=== PATIENT | female | born 1940 | race Caucasian/White ===

== ENCOUNTER → 2016-09-10 | Outpatient (REF) | payer MEDICARE ==
[2016-09-10 13:20] LABS: FOLATE > 24.0 NG/ML; VITAMIN B12 LEVEL 1765 PG/ML
== END ==
LOC: M LAB REF 12:29
PROVIDERS: ATTEND Internal Medicine
DX: D64.9 Anemia, unspecified (principal)

== ENCOUNTER → 2016-10-07 | Outpatient (REF) | payer MEDICARE ==
[2016-10-10 00:06] LABS: Lyme Disease IgG/IgM Antibodie <0.91 ISR (0.00-0.90); Lyme Disease IgM Ab Quantitati <0.80 index (0.00-0.79)
== END ==
LOC: M LAB REF 16:26
PROVIDERS: ATTEND Internal Medicine
DX: Z11.9 Encounter for screening for infectious and parasitic diseases, unspecified (principal)

== ENCOUNTER → 2018-10-11 | Outpatient (REF) | payer MEDICARE | LOC: M LAB REF 14:40 | PROVIDERS: ATTEND Internal Medicine | DX: M05.79 Rheumatoid arthritis with rheumatoid factor of multiple sites without organ or systems involvement (principal) ==

== ENCOUNTER → 2019-02-21 | Outpatient (REF) | payer MEDICARE ==
[2019-02-21 17:41] LABS: C REACTIVE PROTEIN QUANTITATIV < 0.30 MG/DL (0.00-0.30)
[2019-02-21 17:54] LABS: FOLATE > 24.0 NG/ML; VITAMIN B12 LEVEL 1527 PG/ML
== END ==
LOC: M LAB REF 17:02
PROVIDERS: ATTEND Internal Medicine
DX: I10 Essential (primary) hypertension (principal); M05.79 Rheumatoid arthritis with rheumatoid factor of multiple sites without organ or systems involvement; R20.2 Paresthesia of skin

== ENCOUNTER → 2019-02-21 | Outpatient (CLI) | payer MEDICARE ==
--- NOTE | 2019-02-21 18:30 | REP ---
Five views right ribs and two views chest: 02/21/2019. Indication: Right-sided chest pain. Comparison: 03/02/2006. Findings: Diffuse osteopenia is present. No acute rib fractures detected. There is no evidence of lung contusion. There is no pneumothorax. Minimal bibasilar plate-like atelectasis is noted. New new chronic-appearing new new thoracic new compression new vertebral body fractures are noted most notably at T8. Multilevel degenerative sequelae of the spine are additionally noted. The lungs are clear bilaterally. There is no evidence of pleural effusion or pneumothorax. Exaggerated kyphosis is present. Impression: No acute rib fracture detected. Electronically Signed by Arthur Corrigan DO 02/21/2019 06:21 P
== END ==
LOC: M WUC 17:35
PROVIDERS: ATTEND Internal Medicine
DX: J98.11 Atelectasis (principal); M85.88 Other specified disorders of bone density and structure, other site; R07.9 Chest pain, unspecified; I10 Essential (primary) hypertension; M05.79 Rheumatoid arthritis with rheumatoid factor of multiple sites without organ or systems involvement; R20.2 Paresthesia of skin

== ENCOUNTER → 2019-03-16 | Outpatient (CLI) | payer MEDICARE ==
[2019-03-16 20:18] LABS: ALBUMIN 3.5 GM/DL (3.2-5.2); BLOOD UREA NITROGEN 16 MG/DL (7-18); CALCIUM LEVEL 9.3 MG/DL (8.8-10.2); CARBON DIOXIDE LEVEL 29 MEQ/L (21-32); CHLORIDE LEVEL 105 MEQ/L (98-107); CREATININE FOR GFR 0.88 MG/DL (0.55-1.30); GLOMERULAR FILTRATION RATE > 60.0 (>39); GLUCOSE, FASTING 100 MG/DL (70-100); PHOSPHORUS LEVEL 3.9 MG/DL (2.5-4.9); POTASSIUM SERUM 4.7 MEQ/L (3.5-5.1); SODIUM LEVEL 140 MEQ/L (136-145)
== END ==
LOC: M WUC 17:29
PROVIDERS: ATTEND Physician Assistant
DX: R22.43 Localized swelling, mass and lump, lower limb, bilateral (principal)

== ENCOUNTER → 2019-05-08 | Outpatient (CLI) | payer MEDICARE ==
--- NOTE | 2019-05-08 15:16 | REP ---
Left knee series: Four views. History: Contusion. Findings: Four views of the left knee show diffuse osteopenia. There is three compartment osteoarthritis with joint space narrowing, sclerosis and spur formation. This is most pronounced in the medial compartment. There is no evidence of fracture, subluxation, or joint effusion. Mild vascular calcification is noted. Impression: Three compartment osteoarthritis. No traumatic abnormality noted. The sunrise view could not be obtained. Electronically Signed by Jeferson Johnston MD 05/08/2019 06:21 P
--- NOTE | 2019-05-08 15:19 | REP ---
Left foot series: Four views. History: Contusion. Findings: There is diffuse osteoporosis. Dystrophic calcifications are seen in the soft tissues of the distal calf and foot. There is diffuse calf soft tissue swelling. No foot or distal calf fracture is seen. Impression: Osteoporosis. Dystrophic calcification and diffuse swelling. No fracture is visible. Electronically Signed by Jeferson Johnston MD 05/08/2019 06:21 P
--- NOTE | 2019-05-08 15:19 | REP ---
Left hip: Two views. History: Contusion. Findings: AP and frog-leg views of the left hip demonstrate diffuse osteopenia. No evidence of fracture or subluxation is seen. Left hemipelvis appears intact. Impression: No fracture seen. Electronically Signed by Jeferson Johnston MD 05/08/2019 06:21 P
--- NOTE | 2019-05-08 15:31 | REP ---
Left ankle: Four views. History: Contusion. Findings: There is diffuse soft tissue swelling. Dystrophic calcifications are seen in the soft tissues of the distal calf consistent with venous insufficiency calcifications. There is also arterial vascular calcification. There is a cortical break in the posterior and lateral cortex of the calcaneus on oblique radiograph. A calcaneal fracture cannot be excluded. Cortical irregularity is seen posteriorly on the lateral radiograph as well. This should be correlated with mechanism of injury. This finding is not apparent on the left foot radiographs. An erosion of the posterior calcaneus could have this appearance as well. No other evidence of fracture is seen. Impression: Diffuse swelling. Soft tissue calcifications. Cortical irregularity possible fracture of the posterior calcaneus. Electronically Signed by Jeferson Johnston MD 05/08/2019 06:21 P
--- NOTE | 2019-05-08 15:32 | REP ---
Left rib series: Six views including PA chest. History: Contusion. Comparison chest x-ray February 21, 2019. Findings: AP chest x-ray demonstrates linear fibrosis in both lung bases similar to the prior study. The aorta is tortuous as before. There is no evidence of pneumothorax or hydrothorax. No infiltrate or contusion is seen in the lung viveros. Multiple views of the left rib cage demonstrate diffuse osteopenia. There appear to be old healed rib fractures on the left. No acute rib fracture is appreciated. Impression: No acute rib fracture is visible. Electronically Signed by Jeferson Johnston MD 05/08/2019 06:21 P
== END ==
LOC: M WUC 13:24
PROVIDERS: ATTEND Physician Assistant
DX: S20.212A Contusion of left front wall of thorax, initial encounter (principal); S80.12XA Contusion of left lower leg, initial encounter; W18.30XA Fall on same level, unspecified, initial encounter; Y92.009 Unspecified place in unspecified non-institutional (private) residence as the place of occurrence of the external cause

== ENCOUNTER → 2019-05-30 | Outpatient (REF) | payer MEDICARE | LOC: M LAB REF 17:36 | PROVIDERS: ATTEND Internal Medicine | DX: R20.2 Paresthesia of skin (principal); M05.79 Rheumatoid arthritis with rheumatoid factor of multiple sites without organ or systems involvement ==

== ENCOUNTER → 2020-07-10 | Outpatient (REF) | payer MEDICARE | LOC: M LAB REF 12:01 | PROVIDERS: ATTEND Internal Medicine | DX: M05.79 Rheumatoid arthritis with rheumatoid factor of multiple sites without organ or systems involvement (principal) ==

== ENCOUNTER 2020-12-12 06:19 | Inpatient (IN) | payer MEDICARE ==
[~2020-12-12] VITALS: Ht 142.2 cm; Wt 70.6 kg
[2020-12-12] MEDS ORDERED: METF500T13 PO (06:31)
[2020-12-12] MEDS ORDERED: PRED5TA PO (06:31)
[2020-12-12] MEDS ORDERED: FURO20TA2 PO (06:31)
[2020-12-12] MEDS ORDERED: METH2.5T48 PO (06:31)
[2020-12-12] MEDS ORDERED: ATEN25TA PO (06:31)
[2020-12-12] MEDS ORDERED: PANT40TA29 PO (06:31)
[2020-12-12] MEDS ORDERED: ACETAMINOPHEN TAB 650MG DOSE (2X325MG) PO ONE (07:15)
[2020-12-12 07:47] LABS: BASO % 0.3 % (0.0-1.0); HEMATOCRIT 43.8 % (36.0-47.0); HEMOGLOBIN 14.5 g/dl (12.0-15.5); LYMPH # 1.1 10^3/uL (1.5-5.0); LYMPH % 7.2 % (24.0-44.0); MEAN CORPUSCULAR HEMOGLOBIN 34.2 pg (27.0-33.0); MEAN CORPUSCULAR HGB CONC 33.1 g/dl (32.0-36.5); MEAN CORPUSCULAR VOLUME 103.3 fl (80.0-96.0); MONO # 1.5 10^3/uL (0.0-0.8); MONO % 9.3 % (2.0-8.0); NEUTROPHILS # 12.9 10^3/uL (1.5-8.5); NEUTROPHILS % 82.4 % (36.0-66.0); PLATELET COUNT, AUTOMATED 203 10^3/uL (150-450); RED BLOOD COUNT 4.24 10^6/uL (4.00-5.40)
[2020-12-12 07:48] LABS: ABG BASE EXCESS -0.2 (-2.0-2.0); ABG HCO3 22.8 MEQ/L (22.0-26.0); ABG O2 SATURATION 95.3 % (95.0-99.0); ABG PARTIAL PRESSURE O2 78.6 mmHg (75.0-100.0); ABG STANDARD HCO3 24.2 MEQ/L (22.0-26.0); ABG TOTAL CO2 23.9 MEQ/L (23.0-31.0); ABG pH (ARTERIAL) 7.458 UNITS (7.350-7.450)
[2020-12-12 07:52] LABS: WHITE BLOOD COUNT 15.7 10^3/uL (4.0-10.0)
[2020-12-12 08:00] LABS: INR 1.02; PARTIAL THROMBOPLASTIN TIME 27.8 SECONDS (25.9-37.0); PROTHROMBIN TIME 13.8 SECONDS (12.7-14.5)
--- NOTE | 2020-12-12 08:00 | ECGEPIP ---
[facility] - ED Test Date: 2020-12-12 Pat Name: VINICIO LAYTON Department: Room: - Gender: Female [employer]iter: LR : 1940 Requested By: JAXON Justin Order Number: [id number] Reading MD: Narayan Weaver Measurements Intervals Hunter Rate: 97 P: 30 SC: 128 QRS: -40 QRSD: 80 T: 70 QT: 356 QTc: 452 Interpretive Statements Normal sinus rhythm Left axis deviation POOR R WAVE PROGRESSION BASELINE ARTIFACT AFFECTS INTERPRETATION Electronically Signed on 12-12-2020 8:00:04 EDT by Narayan Weaver
--- NOTE | 2020-12-12 08:06 | REP ---
INDICATION: DYSPNEA/COUGH. COMPARISON: PA and lateral chest dated 02/21/2019 and left rib series dated 05/08/2019. TECHNIQUE: Portable AP chest with the patient sitting. FINDINGS: There is an incomplete inspiratory effort with under under aeration of the lung bases. Lung viveros are otherwise clear. Cardiac size is normal. Lala and mediastinum are unremarkable. There is diffuse skeletal demineralization. IMPRESSION: Incomplete inspiratory effort with under aeration of the lung bases. <Electronically signed by Sergio Holcomb > 12/12/20 0802
[2020-12-12 08:19] LABS: ALBUMIN 3.5 GM/DL (3.2-5.2); ALT/SGPT 29 U/L (12-78); BILIRUBIN,DIRECT 0.3 MG/DL (0.0-0.2); BILIRUBIN,TOTAL 1.4 MG/DL (0.2-1.0); BLOOD UREA NITROGEN 14 MG/DL (7-18); CALCIUM LEVEL 8.7 MG/DL (8.8-10.2); CARBON DIOXIDE LEVEL 24 MEQ/L (21-32); CHLORIDE LEVEL 104 MEQ/L (98-107); CK-MB VALUE MASS < 1.0 NG/ML (<3.6); CPK CREATINE PHOSPHOKINASE 90 U/L (26-192); CREATININE FOR GFR 0.91 MG/DL (0.55-1.30); GLOMERULAR FILTRATION RATE > 60.0 (>39); GLUCOSE, FASTING 181 MG/DL (70-100); MB/CK RELATIVE INDEX 1.11 (< OR =4); NT-PRO BNP 377 PG/ML (<450); POTASSIUM SERUM 4.4 MEQ/L (3.5-5.1); SODIUM LEVEL 138 MEQ/L (136-145); TOTAL PROTEIN 7.6 GM/DL (6.4-8.2); TROPONIN I < 0.02 NG/ML (< 0.10)
[2020-12-12] MEDS ORDERED: COMBIVENT RESPIMAT 100-20MCG INHALER 4GM INH ONE (08:20)
[2020-12-12] MEDS ORDERED: ISOVUE-370 76% 100ML VIAL As Ordered ONE (08:50)
[2020-12-12] MEDS: HEPARIN SOD (PORCINE) 5000UNITS/ML 1ML VIAL/SYRINGE SC SCH ×2 (09:00→20:17)
--- NOTE | 2020-12-12 09:34 | REP ---
INDICATION: SOB. COMPARISON: None. TECHNIQUE: CTA chest FINDINGS: There is consolidation at both lung bases. This is more prominent at the right base. There are no pulmonary emboli. The ascending aorta, aortic arch and descending aorta are unremarkable. The great vessels show normal origins from the arch and are patent. There are multiple compression fractures of the thoracic spine and the thoracic spine is osteoporotic. The adrenal glands are not enlarged. A 1.5 cm cyst is noted in the upper pole the left kidney. Thyroid unremarkable. No hilar or mediastinal adenopathy. IMPRESSION: Bibasilar pneumonia right larger than left. No pulmonary emboli. <Electronically signed by Gunner Moran > 12/12/20 [id number]
[2020-12-12] MEDS ORDERED: LevoFLOXacin IV 750 MG in IV 1 EA IV ONE (09:50)
[2020-12-12] MEDS ORDERED: D31000TA2 PO (10:15)
[2020-12-12] MEDS ORDERED: GABA-1171 PO (10:15)
[2020-12-12] MEDS ORDERED: FERR1TAB8 PO (10:15)
[2020-12-12] MEDS ORDERED: CYAN500T3 PO (10:15)
[2020-12-12] MEDS ORDERED: POTA99TA14 PO (10:15)
[2020-12-12] MEDS ORDERED: HOME MED LIST COMPLETE! XX SCH (10:20)
[2020-12-12] MEDS ORDERED: IPRATROPIUM 0.5MG/ALBUTEROL 2.5MG INH SOL UD 3ML (DUONEB) INH PRN (11:05)
[2020-12-12] MEDS ORDERED: ALBUTEROL SULFATE 2.5 MG/0.5 ML INH NEB SOLN INH PRN (11:05)
[2020-12-12] MEDS ORDERED: GLUCAGON INJ 1MG VIAL SC PRN (11:35)
[2020-12-12] MEDS ORDERED: GLUCOSE 4GM CHEW TABLET PO PRN (11:35)
[2020-12-12] MEDS ORDERED: DEXTROSE 50% 50 ML SYRINGE IV PRN (11:35)
--- NOTE | 2020-12-12 11:44 | HPEPDOC ---
General Date of Admission Dec 12, 2020 at 11:05 Date of Service: Dec 12, 2020 Chief Complaint The patient is a 80-year-old female admitted with a reason for visit of Pneumonia. Source: Patient Exam Limitations: No limitations History of Present Illness Patient is 80 years old female with past medical history of rheumatoid arthritis, osteoporosis, type 2 diabetes presented to the hospital with increased shortness of breath. Patient stated that around 4 days ago she has been having increased shortness of breath with low-grade fever and chills. Also she stated that she developed severe back pain from the low thoracic and lumbar area, she denied such back pain before. In ER patient was found to have leukocytosis of 15.7, hemoglobin 14.5. Chest CTA showed Bibasilar pneumonia right larger than left. No pulmonary emboli Home Medications Scheduled Atenolol (Atenolol) 25 Mg Tablet, 25 MG PO DAILY, (Reported) Cholecalciferol (Vitamin D3) (Vitamin D3) 1,000 Unit Tablet, 1,000 UNITS PO DAILY, (Reported) Cyanocobalamin (Vitamin B-12) (Vitamin B-12) 500 Mcg Tablet, 500 MCG PO DAILY, (Reported) Ferrous Sulfate (Ferrous Sulfate) 325 Mg Tablet, 325 MG PO DAILY, (Reported) Furosemide (Furosemide) 20 Mg Tablet, 20 MG PO DAILY, (Reported) Gabapentin (Gabapentin) 100 Mg Capsule, 100 MG PO QHS, (Reported) Metformin HCl (Metformin HCl) 500 Mg Tablet, 500 MG PO BID, (Reported) Methotrexate Sodium (Methotrexate) 2.5 Mg Tablet, 12.5 MG PO QWEEK, (Reported) THURSDAYS Pantoprazole Sodium (Pantoprazole Sodium) 40 Mg Tablet.dr, 40 MG PO BID, (Reported) Potassium Gluconate (Potassium) 99 Mg Tablet, 595 MG PO DAILY, (Reported) Prednisone (Prednisone) 5 Mg Tablet, 10 MG PO DAILY, (Reported) Allergies Coded Allergies: Penicillins (Verified Allergy, Intermediate, rash, hives, eye problems, 12/12/20) Past Medical History Medical History Rheumatoid arthritis, osteoporosis, type 2 diabetes, acid reflux Surgical History No surgical history Family History I personally reviewed family history and found not pertinent Social History * Smoker: Denies Alcohol: Denies Drugs: denies A-FIB/CHADSVASC A-FIB History Current/History of A-Fib/PAF?: No Current PO Anticoag Therapy: No Review of Systems Constitutional: Reports: Chills, Fever Eyes: Denies: Pain ENT: Denies: Head Aches Skin: Denies: Rash, Lesions Pulmonary: Reports: Dyspnea Cardiovascular: Denies: Chest Pain Gastrointestinal: Denies: Nausea Genitourinary: Denies: Dysuria Hematologic: Denies: Bruising Endocrine: Denies: Polydipsia Musculoskeletal: Reports: Back Pain Neurological: Denies: Weakness Psych: Reports: Mood Normal Physical Examination General Exam: Positive: Alert, Cooperative ENT Exam: Positive: Atraumatic Neck Exam: Positive: Supple; Negative: JVD Chest Exam: Positive: Rhonchi, Diminished Heart Exam: Positive: Rate Normal Telemetry: Positive: No significant arrhythmia Abdomen Exam: Positive: Normal bowel sounds Extremity Exam: Negative: Cyanosis Skin Exam: Positive: Nl turgor and temperature Neuro Exam: Positive: Strength at 5/5 X4 ext, Cranial Nerves 3-12 NL Psych Exam: Positive: Mental status NL Vital Signs Vital Signs Date Time Temp Pulse Resp B/P (MAP) Pulse Ox O2 Delivery O2 Flow Rate FiO2 12/12/20 09:48 99.0 12/12/20 08:45 82 114/58 (76) 91 12/12/20 08:05 Nasal Cannula 3.0 12/12/20 06:20 20 Laboratory Data Labs 24H Laboratory Tests 2 12/12/20 07:24: Immature Granulocyte % (Auto) 0.8, Neutrophils (%) (Auto) 82.4H, Lymphocytes (%) (Auto) 7.2L, Monocytes (%) (Auto) 9.3H, Eosinophils (%) (Auto) 0.0, Basophils (%) (Auto) 0.3, Neutrophils # (Auto) 12.9H, Lymphocytes # (Auto) 1.1L, Monocytes # (Auto) 1.5H, Eosinophils # (Auto) 0.0, Basophils # (Auto) 0.0, Nucleated Red Blood Cells % (auto) 0.0, Prothrombin Time 13.8, Prothromb Time International Ratio 1.02, Activated Partial Thromboplast Time 27.8, Anion Gap 10, Glomerular Filtration Rate > 60.0, Calcium Level 8.7L, Total Bilirubin 1.4H, Direct Bilirubin 0.3H, Aspartate Amino Transf (AST/SGOT) 23, Alanine Aminotransferase (ALT/SGPT) 29, Alkaline Phosphatase 63, Total Creatine Kinase 90, Creatine Kinase MB < 1.0, Creatine Kinase MB Relative Index 1.11, Troponin I < 0.02, JC-[id number]-G-Type Natriuretic Peptide 377, Total Protein 7.6, Albumin 3.5, Albumin/Globulin Ratio 0.9L, Thyroid Stimulating Hormone (TSH) 2.700 12/12/20 07:37: Blood Gas Bicarbonate Standard 24.2, Arterial Blood pH 7.458H, Arterial Blood Partial Pressure CO2 33.0L, Arterial Blood Partial Pressure O2 78.6, Arterial Blood Total CO2 23.9, Arterial Blood HCO3 22.8, Arterial Blood Base Excess -0.2, Arterial Blood Oxygen Saturation 95.3 CBC/BMP Laboratory Tests 12/12/20 07:24 Microbiology Microbiology 12/12/20 Blood Culture, Received Pending 12/12/20 Respiratory Virus Panel (PCR) ([facility]) - Final, Complete 12/12/20 Blood Culture, Received Pending Assessment/Plan Patient is 80 years old female with past medical history of rheumatoid arthritis, osteoporosis, type 2 diabetes presented to the hospital with increased shortness of breath. Patient stated that around 4 days ago she has been having increased shortness of breath with low-grade fever and chills. Also she stated that she developed severe back pain from the low thoracic and lumbar area, she denied such back pain before. In ER patient was found to have leukocytosis of 15.7, hemoglobin 14.5. Chest CTA showed Bibasilar pneumonia right larger than left. No pulmonary emboli Problems (1) Community acquired pneumonia Status: Acute Problem Text: CT showed bilateral infiltrates, patient has leukocytosis with dyspnea Inhalers, prednisone 40 mg Blood culture Sputum culture IV fluid (2) Back pain Status: Acute Problem Text: Tenderness on palpation over the lower thoracic area and lumbar area There is suspicion for spinal abscess Patient immunocompromised due to rheumatoid arthritis and methotrexate therapy I will proceed with MRI thoracic and lumbar area (3) Rheumatoid arthritis Status: Chronic Problem Text: Methotrexate on hold (4) Diabetes mellitus Status: Chronic Problem Text: Diabetes diet Insulin sliding scale Plan / VTE VTE Prophylaxis Ordered?: Yes ALBERTO MONTIEL DO Dec 12, 2020 11:44
[2020-12-12] MEDS ORDERED: predniSONE 20 MG TAB PO ONE (12:00)
[2020-12-12] MEDS: PANTOPRAZOLE 40MG TAB (PROTONIX) PO SCH (12:31)
[2020-12-12] MEDS: FERROUS SULFATE 325MG TAB PO SCH (12:32)
[2020-12-12] MEDS: CYANOCOBALAMIN 500 MCG TAB PO SCH (12:32)
[2020-12-12] MEDS: FUROSEMIDE 20 MG TAB PO SCH (12:32)
[2020-12-12] MEDS: VITAMIN D 1,000 INTERNATIONAL UNITS TABLET PO SCH (12:32)
[2020-12-12 14:00] VITALS: BP 143/67
[2020-12-12] MEDS: HumaLOG INSULIN (NovoLOG) PER UNIT SC SCH ×3 (15:55→20:24)
[2020-12-12] MEDS: atenoloL 25 MG TAB PO SCH (16:05)
[2020-12-12] MEDS: NS 1,000 ML IV SCH (16:06)
[2020-12-12] MEDS: DOXYCYCLINE HYCLATE 100 MG in D5W MINI-BAG PLUS 100 ML IV SCH (20:17)
[2020-12-12] MEDS: GABAPENTIN 100 MG CAP PO SCH (20:17)
[2020-12-12 22:00] VITALS: BP 139/80
[2020-12-13] MEDS: NS 1,000 ML IV SCH ×2 (01:45→11:08)
[2020-12-13 05:51] LABS: HEMATOCRIT 38.3 % (36.0-47.0); MEAN CORPUSCULAR HEMOGLOBIN 33.8 pg (27.0-33.0); MEAN CORPUSCULAR HGB CONC 32.1 g/dl (32.0-36.5); MEAN CORPUSCULAR VOLUME 105.2 fl (80.0-96.0); PLATELET COUNT, AUTOMATED 184 10^3/uL (150-450); RED BLOOD COUNT 3.64 10^6/uL (4.00-5.40); WHITE BLOOD COUNT 12.9 10^3/uL (4.0-10.0)
[2020-12-13 05:55] LABS: HEMOGLOBIN 12.3 g/dl (12.0-15.5)
[2020-12-13 06:00] VITALS: BP 146/72
[2020-12-13 06:20] LABS: ALBUMIN 2.7 GM/DL (3.2-5.2); ALT/SGPT 20 U/L (12-78); BILIRUBIN,TOTAL 0.7 MG/DL (0.2-1.0); BLOOD UREA NITROGEN 13 MG/DL (7-18); CARBON DIOXIDE LEVEL 25 MEQ/L (21-32); CHLORIDE LEVEL 109 MEQ/L (98-107); CREATININE FOR GFR 0.83 MG/DL (0.55-1.30); GLOMERULAR FILTRATION RATE > 60.0 (>39); GLUCOSE, FASTING 111 MG/DL (70-100); MAGNESIUM LEVEL 2.3 MG/DL (1.8-2.4); POTASSIUM SERUM 3.7 MEQ/L (3.5-5.1); SODIUM LEVEL 142 MEQ/L (136-145); TOTAL PROTEIN 6.2 GM/DL (6.4-8.2)
[2020-12-13] MEDS: HumaLOG INSULIN (NovoLOG) PER UNIT SC SCH ×4 (07:30→20:56)
[2020-12-13] MEDS: ACETAMINOPHEN TAB 650MG DOSE (2X325MG) PO PRN (08:18)
[2020-12-13] MEDS: CYANOCOBALAMIN 500 MCG TAB PO SCH (10:22)
[2020-12-13] MEDS: VITAMIN D 1,000 INTERNATIONAL UNITS TABLET PO SCH (10:22)
[2020-12-13] MEDS: predniSONE 20 MG TAB PO SCH (10:22)
[2020-12-13] MEDS: cefTRIAXone SOD 2 GM in D5W MINI-BAG PLUS 50 ML IV SCH (10:22)
[2020-12-13] MEDS: FERROUS SULFATE 325MG TAB PO SCH (10:22)
[2020-12-13] MEDS: HEPARIN SOD (PORCINE) 5000UNITS/ML 1ML VIAL/SYRINGE SC SCH ×2 (10:23→21:10)
[2020-12-13] MEDS: PANTOPRAZOLE 40MG TAB (PROTONIX) PO SCH (10:23)
[2020-12-13] MEDS: FUROSEMIDE 20 MG TAB PO SCH (10:23)
[2020-12-13] MEDS: atenoloL 25 MG TAB PO SCH (10:26)
--- NOTE | 2020-12-13 10:29 | REPVR ---
PROCEDURE INFORMATION: Exam: MR Thoracic Spine Without and With Contrast Exam date and time: 12/13/2020 9:45 AM Age: 80 years old Clinical indication: Pain in thoracic spine; Without myelpathy or radiculopathy; Patient HX: Compression fxs. TECHNIQUE: Imaging protocol: Multiplanar magnetic resonance images of the thoracic spine without and with contrast. Contrast material: PROHANCE; Contrast volume: 14 ml; Contrast route: INTRAVENOUS (IV); COMPARISON: MRI-LS SPINE W/O FOLL WITH CON 12/13/2020 8:51 AM FINDINGS: Vertebrae: There are multiple chronic thoracic compression fractures resulting in moderate thoracic kyphosis. Spinal cord: See "Discs/Spinal canal/Neural foramina" finding. Discs/Spinal canal/Neural foramina: There are degenerative changes throughout the thoracic spine including disc space narrowing, disc desiccation, and disc bulging. There is no significant spinal canal stenosis. There is no cord compression. Soft tissues: Unremarkable. Pleural spaces: There are small bilateral pleural effusions. Kidneys and ureters: There are high signal lesions in the left kidney, possibly cysts, but not fully characterized on this MRI exam. IMPRESSION: 1. There are multiple chronic thoracic compression fractures resulting in moderate thoracic kyphosis. 2. There are degenerative changes throughout the thoracic spine including disc space narrowing, disc desiccation, and disc bulging. There is no significant spinal canal stenosis. There is no cord compression. PROCEDURE INFORMATION: Exam: MR Lumbar Spine Without Contrast Exam date and time: 12/13/2020 9:45 AM Clinical indication: Pain in thoracic spine; Without myelpathy or radiculopathy; Patient HX: Compression fxs; Additional info: Spinal abscess TECHNIQUE: Imaging protocol: Multiplanar magnetic resonance images of the lumbar spine without intravenous contrast. COMPARISON: No relevant prior studies available. FINDINGS: Vertebrae: There are multiple old compression fractures without retropulsion. There is multilevel disc desiccation and ventral ridging. There is mild multilevel neural foraminal narrowing. There is no significant spinal canal stenosis. There is multilevel facet arthropathy. There is no abnormal enhancement. IMPRESSION: 1. Multiple chronic lumbar compression fractures. 2. Multilevel degenerative changes without significant spinal canal stenosis. Multilevel neural foraminal narrowing. Electronically signed by: Nahum Denson On 12/13/2020 10:28:52 AM
--- NOTE | 2020-12-13 10:30 | REPVR ---
PROCEDURE INFORMATION: Exam: MR Lumbar Spine Without and With Contrast Exam date and time: 12/13/2020 9:45 AM Age: 80 years old Clinical indication: Low back pain; Additional info: Spinal abscess TECHNIQUE: Imaging protocol: Multiplanar magnetic resonance images of the lumbar spine without and with intravenous contrast. Contrast material: PROHANCE; Contrast volume: 14 ml; Contrast route: INTRAVENOUS (IV); COMPARISON: AR HIP COMPLETE LEFT 05/08/2019 2:10 PM FINDINGS: Vertebrae: There are multiple old compression fractures without retropulsion. There is multilevel disc desiccation and ventral ridging. There is mild multilevel neural foraminal narrowing. There is no significant spinal canal stenosis. There is multilevel facet arthropathy. There is no abnormal enhancement. IMPRESSION: 1. Multiple chronic lumbar compression fractures. 2. Multilevel degenerative changes without significant spinal canal stenosis. Multilevel neural foraminal narrowing. Electronically signed by: Nahum Denson On 12/13/2020 10:30:00 AM
[2020-12-13] MEDS ORDERED: PERCOCET 5MG/325MG TAB PO PRN (10:45)
[2020-12-13] MEDS: DOXYCYCLINE HYCLATE 100 MG in D5W MINI-BAG PLUS 100 ML IV SCH ×2 (11:07→21:10)
[2020-12-13 14:00] VITALS: BP 122/65
[2020-12-13] MEDS ORDERED: traMADol 50 MG TAB PO PRN (15:20)
[2020-12-13] MEDS ORDERED: ONDANSETRON 4MG/2ML VIAL IV PRN (15:25)
--- NOTE | 2020-12-13 15:25 | IPNPDOC ---
Text Note Date of Service The patient was seen on 12/13/20. NOTE Subjective: Patient continues to complain back pain. She stated that she feels nauseated after the dose of Percocet. Objective: GENERAL APPEARANCE: NAD HEENT: no scleral icterus, no JVD, EOMI CARDIOVASCULAR: S1S2 LUNGS: Diminished lung sounds bilaterally ABDOMEN: soft & not tender w palpation MUSCULOSKELETAL: no cyanosis, no swelling, tenderness over lumbar and thoracic spine INTEGUMENT: no generalized pallor NEUROLOGICAL: cranial nerve function from 2-12 intact, follows commands, speech not dysarthric Assessment/Plan Patient is 80 years old female with past medical history of rheumatoid arthritis, osteoporosis, type 2 diabetes presented to the hospital with increased shortness of breath. Patient stated that around 4 days ago she has been having increased shortness of breath with low-grade fever and chills. Also she stated that she developed severe back pain from the low thoracic and lumbar area, she denied such back pain before. In ER patient was found to have leukocytosis of 15.7, hemoglobin 14.5. Chest CTA showed Bibasilar pneumonia right larger than left. No pulmonary emboli Problems (1) Community acquired pneumonia CT showed bilateral infiltrates, patient has leukocytosis with dyspnea Inhalers, prednisone 40 mg Blood culture negative Await sputum culture IV fluid Procalcitonin negative Continue antibiotic treatment (2) Back pain/osteoporosis Tenderness on palpation over the lower thoracic area and lumbar area MRI negative for spinal abscess, showed multiple compression fractures Continue vitamin D, I started alendronate Pain management (3) Rheumatoid arthritis Methotrexate on hold (4) Diabetes mellitus Diabetes diet Insulin sliding scale Nausea Zofran VS,Fishbone, I+O VS, Fishbone, I+O Laboratory Tests 12/13/20 05:14 Vital Signs Date Time Temp Pulse Resp B/P (MAP) Pulse Ox O2 Delivery O2 Flow Rate FiO2 12/13/20 14:00 97.3 52 16 122/65 (84) 92 Nasal Cannula 2.0 I&O- Last 24 Hours up to 6 AM 12/13/20 06:00 Intake Total 680 ml Output Total 100 ml Balance 580 ml ALBERTO MONTIEL DO Dec 13, 2020 15:25
[2020-12-13 17:49] VITALS: BP 135/58
[2020-12-13] MEDS: FUROSEMIDE 40MG/4ML VIAL (J1940) IV SCH (18:31)
[2020-12-13 18:37] LABS: ABG BASE EXCESS -2.6 (-2.0-2.0); ABG HCO3 20.5 MEQ/L (22.0-26.0); ABG O2 SATURATION 95.9 % (95.0-99.0); ABG PARTIAL PRESSURE CO2 30.2 mmHg (35.0-45.0); ABG PARTIAL PRESSURE O2 81.2 mmHg (75.0-100.0); ABG STANDARD HCO3 22.3 MEQ/L (22.0-26.0); ABG TOTAL CO2 21.4 MEQ/L (23.0-31.0); ABG pH (ARTERIAL) 7.449 UNITS (7.350-7.450)
[2020-12-13] MEDS: GABAPENTIN 100 MG CAP PO SCH (21:00)
[2020-12-13 22:00] VITALS: BP 107/57
[2020-12-14] MEDS: FUROSEMIDE 40MG/4ML VIAL (J1940) IV SCH ×3 (02:49→17:42)
[2020-12-14 05:55] LABS: BASO % 0.1 % (0.0-1.0); HEMATOCRIT 37.1 % (36.0-47.0); LYMPH # 0.6 10^3/uL (1.5-5.0); LYMPH % 5.3 % (24.0-44.0); MEAN CORPUSCULAR HEMOGLOBIN 33.8 pg (27.0-33.0); MEAN CORPUSCULAR HGB CONC 32.3 g/dl (32.0-36.5); MEAN CORPUSCULAR VOLUME 104.5 fl (80.0-96.0); MONO # 0.4 10^3/uL (0.0-0.8); MONO % 3.8 % (2.0-8.0); NEUTROPHILS # 10.1 10^3/uL (1.5-8.5); NEUTROPHILS % 89.7 % (36.0-66.0); PLATELET COUNT, AUTOMATED 216 10^3/uL (150-450); RED BLOOD COUNT 3.55 10^6/uL (4.00-5.40); WHITE BLOOD COUNT 11.2 10^3/uL (4.0-10.0)
[2020-12-14 06:00] VITALS: BP 142/69
[2020-12-14 06:22] LABS: BLOOD UREA NITROGEN 16 MG/DL (7-18); CALCIUM LEVEL 8.3 MG/DL (8.8-10.2); CARBON DIOXIDE LEVEL 27 MEQ/L (21-32); CHLORIDE LEVEL 104 MEQ/L (98-107); CREATININE FOR GFR 0.94 MG/DL (0.55-1.30); GLOMERULAR FILTRATION RATE > 60.0 (>39); GLUCOSE, FASTING 211 MG/DL (70-100); MAGNESIUM LEVEL 2.1 MG/DL (1.8-2.4); POTASSIUM SERUM 3.7 MEQ/L (3.5-5.1); SODIUM LEVEL 137 MEQ/L (136-145)
[2020-12-14] MEDS ORDERED: ALENDRONATE 35MG TABLET PO SCH (07:00)
[2020-12-14] MEDS: FERROUS SULFATE 325MG TAB PO SCH (08:20)
[2020-12-14] MEDS: predniSONE 20 MG TAB PO SCH (08:20)
[2020-12-14] MEDS: VITAMIN D 1,000 INTERNATIONAL UNITS TABLET PO SCH (08:20)
[2020-12-14] MEDS: HumaLOG INSULIN (NovoLOG) PER UNIT SC SCH ×4 (08:20→20:32)
[2020-12-14] MEDS: ACETAMINOPHEN TAB 650MG DOSE (2X325MG) PO PRN (08:21)
[2020-12-14] MEDS: DOXYCYCLINE HYCLATE 100 MG in D5W MINI-BAG PLUS 100 ML IV SCH ×2 (08:21→20:31)
[2020-12-14] MEDS: PANTOPRAZOLE 40MG TAB (PROTONIX) PO SCH (08:21)
[2020-12-14] MEDS: CYANOCOBALAMIN 500 MCG TAB PO SCH (08:21)
[2020-12-14] MEDS: HEPARIN SOD (PORCINE) 5000UNITS/ML 1ML VIAL/SYRINGE SC SCH ×2 (08:22→20:31)
[2020-12-14] MEDS: atenoloL 25 MG TAB PO SCH (08:23)
[2020-12-14] MEDS: LEVEMIR (INSULIN DETEMIR) 1 UNITS/0.01ML SC SCH ×2 (09:00→20:33)
[2020-12-14] MEDS: cefTRIAXone SOD 2 GM in D5W MINI-BAG PLUS 50 ML IV SCH (09:51)
--- NOTE | 2020-12-14 13:55 | IPNPDOC ---
Text Note Date of Service The patient was seen on 12/14/20. NOTE Subjective: Patient stated that she feels better today, breathing improved Objective: GENERAL APPEARANCE: NAD HEENT: no scleral icterus, no JVD, EOMI CARDIOVASCULAR: S1S2 LUNGS: Diminished lung sounds bilaterally ABDOMEN: soft & not tender w palpation MUSCULOSKELETAL: no cyanosis, no swelling, tenderness over lumbar and thoracic spine INTEGUMENT: no generalized pallor NEUROLOGICAL: cranial nerve function from 2-12 intact, follows commands, speech not dysarthric Assessment/Plan Patient is 80 years old female with past medical history of rheumatoid arthriti s, osteoporosis, type 2 diabetes presented to the hospital with increased shortness of breath. Patient stated that around 4 days ago she has been having increased shortness of breath with low-grade fever and chills. Also she stated that she developed severe back pain from the low thoracic and lumbar area, she denied such back pain before. In ER patient was found to have leukocytosis of 15.7, hemoglobin 14.5. Chest CTA showed Bibasilar pneumonia right larger than left. No pulmonary emboli Problems (1) Community acquired pneumonia CT showed bilateral infiltrates, patient has leukocytosis with dyspnea Inhalers, prednisone 40 mg Blood culture negative Await sputum culture IV fluid Procalcitonin negative Continue antibiotic treatment Leukocytosis improved (2) Back pain/osteoporosis Tenderness on palpation over the lower thoracic area and lumbar area MRI negative for spinal abscess, showed multiple compression fractures Continue vitamin D, I started alendronate Pain management (3) Rheumatoid arthritis Methotrexate on hold (4) Diabetes mellitus Diabetes diet Insulin sliding scale Nausea Zofran VS,Fishbone, I+O VS, Fishbone, I+O Laboratory Tests 12/14/20 05:20 Vital Signs Date Time Temp Pulse Resp B/P (MAP) Pulse Ox O2 Delivery O2 Flow Rate FiO2 12/14/20 12:46 93 Room Air 12/14/20 08:31 1.0 12/14/20 08:29 71 12/14/20 08:23 128/58 12/14/20 06:00 97.5 18 I&O- Last 24 Hours up to 6 AM 12/14/20 05:59 Intake Total 1160 ml Output Total 1450 ml Balance -290 ml ALBERTO MONTIEL DO Dec 14, 2020 13:55
[2020-12-14 14:00] VITALS: BP 101/52
[2020-12-14] MEDS: GABAPENTIN 100 MG CAP PO SCH (20:32)
[2020-12-14 22:00] VITALS: BP 113/62
[2020-12-15] MEDS: FUROSEMIDE 40MG/4ML VIAL (J1940) IV SCH ×3 (01:40→18:10)
[2020-12-15 05:53] LABS: BASO % 0.1 % (0.0-1.0); EOS % 0.2 % (0.0-3.0); HEMATOCRIT 38.5 % (36.0-47.0); HEMOGLOBIN 12.6 g/dl (12.0-15.5); LYMPH # 1.1 10^3/uL (1.5-5.0); LYMPH % 10.4 % (24.0-44.0); MEAN CORPUSCULAR HEMOGLOBIN 33.9 pg (27.0-33.0); MEAN CORPUSCULAR HGB CONC 32.7 g/dl (32.0-36.5); MEAN CORPUSCULAR VOLUME 103.5 fl (80.0-96.0); MONO # 0.8 10^3/uL (0.0-0.8); MONO % 7.7 % (2.0-8.0); NEUTROPHILS # 8.3 10^3/uL (1.5-8.5); NEUTROPHILS % 80.2 % (36.0-66.0); PLATELET COUNT, AUTOMATED 239 10^3/uL (150-450); RED BLOOD COUNT 3.72 10^6/uL (4.00-5.40); WHITE BLOOD COUNT 10.4 10^3/uL (4.0-10.0)
[2020-12-15 06:00] VITALS: BP 124/69
[2020-12-15 06:13] LABS: BLOOD UREA NITROGEN 23 MG/DL (7-18); CALCIUM LEVEL 8.7 MG/DL (8.8-10.2); CARBON DIOXIDE LEVEL 29 MEQ/L (21-32); CHLORIDE LEVEL 107 MEQ/L (98-107); CREATININE FOR GFR 0.83 MG/DL (0.55-1.30); GLOMERULAR FILTRATION RATE > 60.0 (>39); GLUCOSE, FASTING 104 MG/DL (70-100); MAGNESIUM LEVEL 2.2 MG/DL (1.8-2.4); POTASSIUM SERUM 3.3 MEQ/L (3.5-5.1); SODIUM LEVEL 141 MEQ/L (136-145)
[2020-12-15] MEDS ORDERED: POTASSIUM CHLORIDE 10 MEQ SR TABLET PO ONE (07:45)
[2020-12-15 08:00] VITALS: BP 120/65
[2020-12-15] MEDS: FERROUS SULFATE 325MG TAB PO SCH (08:52)
[2020-12-15] MEDS: CYANOCOBALAMIN 500 MCG TAB PO SCH (08:52)
[2020-12-15] MEDS: VITAMIN D 1,000 INTERNATIONAL UNITS TABLET PO SCH (08:52)
[2020-12-15] MEDS: PANTOPRAZOLE 40MG TAB (PROTONIX) PO SCH (08:52)
[2020-12-15] MEDS: atenoloL 25 MG TAB PO SCH (08:53)
[2020-12-15] MEDS: predniSONE 20 MG TAB PO SCH (08:53)
[2020-12-15] MEDS: HumaLOG INSULIN (NovoLOG) PER UNIT SC SCH ×4 (08:54→20:09)
[2020-12-15] MEDS: LEVEMIR (INSULIN DETEMIR) 1 UNITS/0.01ML SC SCH ×2 (08:54→20:09)
[2020-12-15] MEDS: HEPARIN SOD (PORCINE) 5000UNITS/ML 1ML VIAL/SYRINGE SC SCH ×2 (08:54→20:08)
[2020-12-15] MEDS: DOXYCYCLINE HYCLATE 100 MG in D5W MINI-BAG PLUS 100 ML IV SCH (08:55)
[2020-12-15] MEDS: cefTRIAXone SOD 2 GM in D5W MINI-BAG PLUS 50 ML IV SCH (10:42)
[2020-12-15 14:00] VITALS: BP 138/64
--- NOTE | 2020-12-15 14:03 | IPNPDOC ---
Text Note Date of Service The patient was seen on 12/15/20. NOTE Subjective: Patient reported improvement in breathing, no fever or chills ove rnight Objective: GENERAL APPEARANCE: NAD HEENT: no scleral icterus, no JVD, EOMI CARDIOVASCULAR: S1S2 LUNGS: Diminished lung sounds bilaterally ABDOMEN: soft & not tender w palpation MUSCULOSKELETAL: no cyanosis, no swelling, tenderness over lumbar and thoracic spine INTEGUMENT: no generalized pallor NEUROLOGICAL: cranial nerve function from 2-12 intact, follows commands, speech not dysarthric Assessment/Plan Patient is 80 years old female with past medical history of rheumatoid arthritis, osteoporosis, type 2 diabetes presented to the hospital with increased shortness of breath. Patient stated that around 4 days ago she has been having increased shortness of breath with low-grade fever and chills. Also she stated that she developed severe back pain from the low thoracic and lumbar area, she denied such back pain before. In ER patient was found to have leukocytosis of 15.7, hemoglobin 14.5. Chest CTA showed Bibasilar pneumonia right larger than left. No pulmonary emboli Problems (1) Community acquired pneumonia CT showed bilateral infiltrates, patient has leukocytosis with dyspnea Inhalers, prednisone 40 mg Blood culture negative Procalcitonin negative Continue doxycycline p.o. and cefdinir p.o. Leukocytosis improved (2) Back pain/osteoporosis Tenderness on palpation over the lower thoracic area and lumbar area MRI negative for spinal abscess, showed multiple compression fractures Continue vitamin D, I started alendronate Pain management (3) Rheumatoid arthritis Methotrexate on hold (4) Diabetes mellitus Diabetes diet Insulin sliding scale Nausea Zofran Deconditioning PT/OT Hypokalemia Replaced VS,Fishbone, I+O VS, Fishbone, I+O Laboratory Tests 12/15/20 05:26 Vital Signs Date Time Temp Pulse Resp B/P (MAP) Pulse Ox O2 Delivery O2 Flow Rate FiO2 12/15/20 11:27 0.0 12/15/20 09:45 20 88 Room Air 12/15/20 08:53 65 120/65 12/15/20 06:00 97.7 I&O- Last 24 Hours up to 6 AM 12/15/20 06:00 Intake Total 1005 ml Output Total 1875 ml Balance -870 ml ALBERTO MONTIEL DO Dec 15, 2020 14:03
[2020-12-15] MEDS: DOXYCYCLINE HYCLATE 100MG TABLET PO SCH (20:08)
[2020-12-15] MEDS: GABAPENTIN 100 MG CAP PO SCH (20:08)
[2020-12-15] MEDS: CEFDINIR 300 MG CAP (OMNICEF) PO SCH (20:08)
[2020-12-15 22:00] VITALS: BP 132/62
[2020-12-16] MEDS: FUROSEMIDE 40MG/4ML VIAL (J1940) IV SCH ×3 (01:51→18:21)
[2020-12-16 06:00] VITALS: BP 134/72
[2020-12-16 06:10] LABS: BASO # 0.1 10^3/uL (0.0-0.2); BASO % 0.5 % (0.0-1.0); EOS % 0.3 % (0.0-3.0); HEMATOCRIT 42.7 % (36.0-47.0); LYMPH # 1.2 10^3/uL (1.5-5.0); LYMPH % 11.4 % (24.0-44.0); MEAN CORPUSCULAR HEMOGLOBIN 33.7 pg (27.0-33.0); MEAN CORPUSCULAR HGB CONC 32.8 g/dl (32.0-36.5); MEAN CORPUSCULAR VOLUME 102.9 fl (80.0-96.0); MONO # 0.9 10^3/uL (0.0-0.8); NEUTROPHILS # 8.3 10^3/uL (1.5-8.5); NEUTROPHILS % 76.4 % (36.0-66.0); PLATELET COUNT, AUTOMATED 277 10^3/uL (150-450); RED BLOOD COUNT 4.15 10^6/uL (4.00-5.40); WHITE BLOOD COUNT 10.9 10^3/uL (4.0-10.0)
[2020-12-16 06:34] LABS: BLOOD UREA NITROGEN 31 MG/DL (7-18); CALCIUM LEVEL 9.2 MG/DL (8.8-10.2); CARBON DIOXIDE LEVEL 31 MEQ/L (21-32); CHLORIDE LEVEL 103 MEQ/L (98-107); GLOMERULAR FILTRATION RATE > 60.0 (>39); GLUCOSE, FASTING 96 MG/DL (70-100); MAGNESIUM LEVEL 2.4 MG/DL (1.8-2.4); POTASSIUM SERUM 3.8 MEQ/L (3.5-5.1); SODIUM LEVEL 142 MEQ/L (136-145)
[2020-12-16] MEDS: HumaLOG INSULIN (NovoLOG) PER UNIT SC SCH ×4 (07:30→20:15)
[2020-12-16] MEDS: HEPARIN SOD (PORCINE) 5000UNITS/ML 1ML VIAL/SYRINGE SC SCH ×2 (10:22→20:14)
[2020-12-16] MEDS: LEVEMIR (INSULIN DETEMIR) 1 UNITS/0.01ML SC SCH ×2 (10:23→20:15)
[2020-12-16] MEDS: PANTOPRAZOLE 40MG TAB (PROTONIX) PO SCH (10:23)
[2020-12-16] MEDS: CEFDINIR 300 MG CAP (OMNICEF) PO SCH ×2 (10:24→20:14)
[2020-12-16] MEDS: predniSONE 20 MG TAB PO SCH (10:24)
[2020-12-16] MEDS: DOXYCYCLINE HYCLATE 100MG TABLET PO SCH ×2 (10:24→20:14)
[2020-12-16] MEDS: ACETAMINOPHEN TAB 650MG DOSE (2X325MG) PO PRN (10:25)
[2020-12-16] MEDS: atenoloL 25 MG TAB PO SCH (10:26)
[2020-12-16] MEDS: VITAMIN D 1,000 INTERNATIONAL UNITS TABLET PO SCH (10:26)
[2020-12-16] MEDS: CYANOCOBALAMIN 500 MCG TAB PO SCH (10:27)
[2020-12-16] MEDS: FERROUS SULFATE 325MG TAB PO SCH (10:27)
[2020-12-16 14:00] VITALS: BP 143/75
--- NOTE | 2020-12-16 14:04 | IPNPDOC ---
Text Note Date of Service The patient was seen on 12/16/20. NOTE Subjective: Patient is a 80-year-old female who initially presented with incr eased shortness of breath who was found to have pneumonia. Patient says she is feeling better but is complaining some left-sided rib pain. Patient states when she pushes on the ribs the pain is reproduced. Patient also says is uncomfortable to take a deep breath in. This pain did go away after few hours. Patient is otherwise feeling well. Review of systems: General: Patient denies fevers HEENT: Patient denies headaches Cardiovascular: Patient denies chest pain but did report rib pain as above Respiratory: Patient denies shortness of breath, cough GI: Patient denies abdominal pain, nausea, vomiting, diarrhea : Patient denies increased frequency or pain with urination Extremities: Patient denies swelling or pain in extremities Neurological: Patient denies numbness or tingling in legs Physical exam: Vitals: See below General: Alert and oriented female patient who was sitting up in bed when I walked into the room. Patient not appear to be in any acute distress. HEENT: Normocephalic, atraumatic, moist mucous membranes. Neck: No lymphadenopathy or thyromegaly Cardiac: Regular rate and rhythm, no murmurs, normal S1, normal S2, tenderness on the subcostal area of the left side of the rib cage. Pulm: Fine crackles in the bilateral bases, clear to auscultation the upper lung viveros Abd: Nondistended, nontender to palpation, normal bowel sounds Ext: No edema bilateral lower extremities Labs: See below Imaging: No new imaging has been performed Assessment/plan: 80-year-old female with past medical history of rheumatoid arthritis, osteoporosis, type 2 diabetes who presented to hospital with increased shortness of breath was found to have bibasilar pneumonia right worse than left 1. Community-acquired pneumonia. CT scan showed bilateral infiltrates and patient had leukocytosis with dyspnea. We will continue with doxycycline and cefdinir. Leukocytosis has improved. Patient was also given prednisone. 2. Back pain/osteoporosis. Tenderness on palpation of the lower thoracic and lumbar area. Concern for spinal abscess had been ruled out with MRI. She does have multiple compression fractures. Patient states that the back pain has improved. Continue vitamin D and alendronate was started. If the pain worsens, patient can be giving calcitonin. 3. Arthritis. Methotrexate on hold. 4. Diabetes mellitus. Consistent carbohydrate diet with sliding scale insulin. 5. Rib pain. Patient does not appear to have a cardiovascular cause of the pain as the pain went away and was reproducible. We will continue to monitor. Patient has pneumonia and this may be secondary to a pulled muscle from coughing or a gas bubble in the abdomen. At this time, if the pain continues or changes, further work-up will be performed. DVT Prophylaxis: Heparin Disposition: Pending improvement in her pneumonia possible discharge 24 to 48 hours VS,Savana, I+O VS, Savana, I+O Laboratory Tests 12/16/20 05:37 Vital Signs Date Time Temp Pulse Resp B/P (MAP) Pulse Ox O2 Delivery O2 Flow Rate FiO2 12/16/20 10:26 78 118/70 12/16/20 06:00 98.1 18 93 Nasal Cannula 1.0 I&O- Last 24 Hours up to 6 AM 12/16/20 06:00 Intake Total 1280 ml Output Total 1750 ml Balance -470 ml LORI HUTCHINS DO Dec 16, 2020 14:04
[2020-12-16] MEDS: GABAPENTIN 100 MG CAP PO SCH (20:14)
[2020-12-16 22:00] VITALS: BP 119/60
[2020-12-17] MEDS: FUROSEMIDE 40MG/4ML VIAL (J1940) IV SCH ×3 (01:48→18:00)
[2020-12-17 06:00] VITALS: BP 132/69
[2020-12-17 06:10] LABS: BASO # 0.1 10^3/uL (0.0-0.2); BASO % 0.9 % (0.0-1.0); EOS % 0.1 % (0.0-3.0); HEMATOCRIT 46.2 % (36.0-47.0); HEMOGLOBIN 15.3 g/dl (12.0-15.5); LYMPH # 1.5 10^3/uL (1.5-5.0); LYMPH % 13.7 % (24.0-44.0); MEAN CORPUSCULAR HEMOGLOBIN 34.2 pg (27.0-33.0); MEAN CORPUSCULAR HGB CONC 33.1 g/dl (32.0-36.5); MEAN CORPUSCULAR VOLUME 103.1 fl (80.0-96.0); MONO # 0.8 10^3/uL (0.0-0.8); MONO % 7.5 % (2.0-8.0); NEUTROPHILS # 7.8 10^3/uL (1.5-8.5); NEUTROPHILS % 73.6 % (36.0-66.0); PLATELET COUNT, AUTOMATED 318 10^3/uL (150-450); RED BLOOD COUNT 4.48 10^6/uL (4.00-5.40); WHITE BLOOD COUNT 10.6 10^3/uL (4.0-10.0)
[2020-12-17 06:33] LABS: CALCIUM LEVEL 9.7 MG/DL (8.8-10.2); CREATININE FOR GFR 0.96 MG/DL (0.55-1.30); GLOMERULAR FILTRATION RATE 59.8 (>39); MAGNESIUM LEVEL 2.5 MG/DL (1.8-2.4); POTASSIUM SERUM 4.2 MEQ/L (3.5-5.1)
[2020-12-17] MEDS: HumaLOG INSULIN (NovoLOG) PER UNIT SC SCH ×4 (07:30→20:51)
[2020-12-17] MEDS: LEVEMIR (INSULIN DETEMIR) 1 UNITS/0.01ML SC SCH ×2 (10:01→20:50)
[2020-12-17] MEDS: predniSONE 20 MG TAB PO SCH (10:01)
[2020-12-17] MEDS: PANTOPRAZOLE 40MG TAB (PROTONIX) PO SCH (10:02)
[2020-12-17] MEDS: FERROUS SULFATE 325MG TAB PO SCH (10:02)
[2020-12-17] MEDS: DOXYCYCLINE HYCLATE 100MG TABLET PO SCH ×2 (10:02→20:50)
[2020-12-17] MEDS: VITAMIN D 1,000 INTERNATIONAL UNITS TABLET PO SCH (10:02)
[2020-12-17] MEDS: CEFDINIR 300 MG CAP (OMNICEF) PO SCH ×2 (10:02→20:50)
[2020-12-17] MEDS: CYANOCOBALAMIN 500 MCG TAB PO SCH (10:03)
[2020-12-17] MEDS: atenoloL 25 MG TAB PO SCH (10:05)
[2020-12-17] MEDS: HEPARIN SOD (PORCINE) 5000UNITS/ML 1ML VIAL/SYRINGE SC SCH ×2 (10:05→20:50)
[2020-12-17] MEDS: ACETAMINOPHEN TAB 650MG DOSE (2X325MG) PO PRN ×2 (11:46→20:50)
[2020-12-17 14:00] VITALS: BP 103/65
--- NOTE | 2020-12-17 14:11 | IPNPDOC ---
Text Note Date of Service The patient was seen on 12/17/20. NOTE Subjective: Patient is 80-year-old female initially presented with increased shortness of breath found of pneumonia. Patient says that she is feeling better but is now having some right-sided low back pain. Patient says when she pushes on the ribs in the back the pain is reproduced. Patient says that it is uncomfortable to take a deep breath. Patient said the pain was on the left side yesterday was down the right side. Patient is otherwise feeling well. Review of systems: General: Patient denies fevers HEENT: Patient denies headaches Cardiovascular: Patient denies chest pain Respiratory: Patient reports that it is difficult to take a deep breath and because of the rib pain. GI: Patient denies abdominal pain, nausea, vomiting, diarrhea : Patient denies increased frequency or pain with urination Extremities: Patient denies swelling or pain in extremities Neurological: Patient denies numbness or tingling in legs Physical exam: Vitals: See below General: Alert and oriented female patient who was sitting up in the bed with nasal cannula oxygen when I walked in. Patient not appear to be in any acute distress. HEENT: Normocephalic, atraumatic, moist mucous membranes. Neck: No lymphadenopathy or thyromegaly Cardiac: Regular rate and rhythm, no murmurs, normal S1, normal S2 Pulm: Fine crackles in the bases, clear to auscultation upper lung viveros. Abd: Nondistended, nontender to palpation, normal bowel sounds Ext: No edema bilateral lower extremities Musculoskeletal: Tenderness to palpation in the thoracic lumbar junction of the right side paraspinal muscles- Labs: See below Imaging: No new imaging has been performed Assessment/plan: 80-year-old female with past medical history of rheumatoid arthritis, osteoporosis, type 2 diabetes presented the hospital with increased shortness of breath was found to have bibasilar pneumonia right worse than left. 1. Community acquired pneumonia. CT scan showed bilateral infiltrates and patient had leukocytosis and dyspnea. Patient will continue with doxycycline and cefdinir. Leukocytosis has improved. 2. Back pain/osteoporosis. Tenderness to palpation in the lower thoracic and lumbar area. MRI was performed and showed degenerative changes. She does have multiple compression fractures. Continue vitamin D and alendronate. 3. Rheumatoid arthritis. Methotrexate is on hold. 4. Diabetes mellitus. Consistent carbohydrate diet with sliding scale insulin. DVT Prophylaxis: Heparin Disposition: Pending improvement in patient's oxygenation. VS,Fishbone, I+O VS, Fishbone, I+O Laboratory Tests 12/17/20 05:43 Vital Signs Date Time Temp Pulse Resp B/P (MAP) Pulse Ox O2 Delivery O2 Flow Rate FiO2 12/17/20 10:05 72 113/75 12/17/20 06:00 97.6 19 94 Nasal Cannula 3.0 I&O- Last 24 Hours up to 6 AM 12/17/20 06:00 Intake Total 1360 ml Output Total 750 ml Balance 610 ml LORI HUTCHINS DO Dec 17, 2020 14:11
[2020-12-17] MEDS: GABAPENTIN 100 MG CAP PO SCH (20:50)
[2020-12-17 22:00] VITALS: BP 110/69
[2020-12-17 23:53] VITALS: O2SAT 94
[2020-12-18] MEDS: FUROSEMIDE 40MG/4ML VIAL (J1940) IV SCH ×3 (01:42→17:16)
[2020-12-18 05:52] LABS: HEMATOCRIT 43.5 % (36.0-47.0); HEMOGLOBIN 14.2 g/dl (12.0-15.5); MEAN CORPUSCULAR HEMOGLOBIN 33.6 pg (27.0-33.0); MEAN CORPUSCULAR HGB CONC 32.6 g/dl (32.0-36.5); MEAN CORPUSCULAR VOLUME 103.1 fl (80.0-96.0); PLATELET COUNT, AUTOMATED 339 10^3/uL (150-450); RED BLOOD COUNT 4.22 10^6/uL (4.00-5.40); WHITE BLOOD COUNT 12.7 10^3/uL (4.0-10.0)
[2020-12-18 06:00] VITALS: BP 128/76
[2020-12-18 06:09] LABS: CALCIUM LEVEL 8.9 MG/DL (8.8-10.2); CREATININE FOR GFR 1.05 MG/DL (0.55-1.30); MAGNESIUM LEVEL 2.4 MG/DL (1.8-2.4); POTASSIUM SERUM 3.9 MEQ/L (3.5-5.1)
[2020-12-18 07:28] LABS: ATYPICAL LYMPH 2 % (0-5); EOSINOPHILS 1 % (0-3); LYMPHOCYTES 16 % (16-44); METAMYELOCYTES 2 % (0-0); MONOCYTES 7 % (0-5); NEUTROPHILS 69 % (28-66); PLATELET ESTIMATE NORMAL (NORMAL)
[2020-12-18] MEDS: HumaLOG INSULIN (NovoLOG) PER UNIT SC SCH ×4 (07:30→21:32)
[2020-12-18] MEDS: CEFDINIR 300 MG CAP (OMNICEF) PO SCH ×2 (09:56→21:30)
[2020-12-18] MEDS: FERROUS SULFATE 325MG TAB PO SCH (09:56)
[2020-12-18] MEDS: DOXYCYCLINE HYCLATE 100MG TABLET PO SCH ×2 (09:56→21:32)
[2020-12-18] MEDS: HEPARIN SOD (PORCINE) 5000UNITS/ML 1ML VIAL/SYRINGE SC SCH ×2 (09:56→21:31)
[2020-12-18] MEDS: LEVEMIR (INSULIN DETEMIR) 1 UNITS/0.01ML SC SCH ×2 (09:57→21:31)
[2020-12-18] MEDS: VITAMIN D 1,000 INTERNATIONAL UNITS TABLET PO SCH (09:57)
[2020-12-18] MEDS: CYANOCOBALAMIN 500 MCG TAB PO SCH (09:57)
[2020-12-18] MEDS: PANTOPRAZOLE 40MG TAB (PROTONIX) PO SCH (09:57)
[2020-12-18] MEDS: predniSONE 20 MG TAB PO SCH (09:57)
[2020-12-18] MEDS: atenoloL 25 MG TAB PO SCH (09:59)
[2020-12-18 10:46] VITALS: O2SAT 93
[2020-12-18 11:24] VITALS: O2SAT 90
[2020-12-18 11:49] VITALS: O2SAT 85
--- NOTE | 2020-12-18 12:11 | CR ---
ADVANCED WOUND CARE CONSULTATION DATE: 12/18/2020 CONSULT REQUESTED BY: Alex Pantoja MD Wound Care Telemedicine provides a visual assessment of a wound without the benefit of physical examination. It can assist with establishing a diagnosis and etiology. This allows for an initial treatment plan. As wounds often change it may be necessary to modify the original care. Our recommendation is periodic wound reassessment to monitor treatment. Failure to comply may result in nonhealing of wound, possible complications and/or poor outcome. Recommendations given will serve as treatment options. As I will not be following this patient in hospital this care plan will require the attending physician to give and sign the orders. Upon discharge outpatient follow up can be scheduled at our wound care center. 80-year-old female with advanced rheumatoid arthritis on Prednisone, admitted to the hospital for pneumonia. The patient was treated with IV antibiotics which have now been converted to oral and has significantly improved. When seen on telemedicine she is not short of breath and is not on oxygen. The patient has had gravitational dependent edema bilaterally which has caused blistering and superficial venous wounds in the past. This has been compounded by her need to be on Prednisone for her rheumatoid arthritis. As the patient has been at bedrest for the majority of her hospital course her wounds have all closed. There is wrinkling in the skin bilaterally of the lower extremities representing decompression and at present no drainage and no open wounds. 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 This should not be confused with cellulitis. This is a result of chronic inflammatory changes on subacute manner which the body produces in an effort to deal with her chronic gravitational dependent edema. TREATMENT FOR PATIENT: Skin moisturizer, Tubigrip stockings, avoid prolonged out of bed with legs in dependent position. Consider protective foam dressing for the right posterior calf area where there is a superficial dry eschar. [facility]
--- NOTE | 2020-12-18 12:25 | IPNPDOC ---
Text Note Date of Service The patient was seen on 12/18/20. NOTE Subjective: Patient is a 80-year-old female who initially presented with incr eased shortness of breath and was found to have pneumonia. Patient says she is feeling better and the rib and back pain that she is experiencing has also improved. Patient is using her incentive spirometer as much as she can. Patient's oxygen has been able to be weaned down from 3 L/min to 1 L/min. Patient is otherwise feeling well today. Review of systems: General: Patient denies fevers HEENT: Patient denies headaches Cardiovascular: Patient denies chest pain Respiratory: Patient reports improvement in her shortness of breath, cough GI: Patient denies abdominal pain, nausea, vomiting, diarrhea : Patient denies increased frequency or pain with urination Extremities: Patient denies swelling or pain in extremities Neurological: Patient denies numbness or tingling in legs Physical exam: Vitals: See below General: Alert and oriented female patient who is sitting in the bedside chair with nasal cannula oxygen in place when I walked in. Patient did not appear to be in any acute distress. HEENT: Normocephalic, atraumatic, moist mucous membranes. Neck: No lymphadenopathy or thyromegaly Cardiac: Regular rate and rhythm, no murmurs, normal S1, normal S2 Pulm: Fine crackles in the bases, clear to auscultation in the upper lung viveros. Abd: Nondistended, nontender to palpation, normal bowel sounds Ext: No edema bilateral lower extremities Labs: See below Imaging: No new imaging has been performed Assessment/plan: 80-year-old female with past medical history of rheumatoid arthritis, osteoporosis, type 2 diabetes presented to hospital with increased shortness of breath who was found to have bibasilar pneumonia right worse than left. 1. Community-acquired pneumonia. CT scan showed bilateral infiltrates and patient had a leukocytosis with dyspnea. Continue with doxycycline and cefdinir. Leukocytosis has improved. 2. Back pain/osteoporosis. Tenderness to palpation of the lower thoracic and lumbar area. MRI was performed showed degenerative changes. Does have multiple compression fractures. Continue vitamin D and alendronate. 3. Rheumatoid arthritis. Methotrexate is on hold. 4. Diabetes mellitus. Consistent carbohydrate diet with sliding scale insulin. DVT Prophylaxis: Heparin Disposition: Pending continue improvement of patient's oxygenation. VS,Fishbone, I+O VS, Fishbone, I+O Laboratory Tests 12/18/20 05:31 Vital Signs Date Time Temp Pulse Resp B/P (MAP) Pulse Ox O2 Delivery O2 Flow Rate FiO2 12/18/20 11:49 85 Nasal Cannula 1.0 12/18/20 09:59 85 121/69 12/18/20 06:00 97.1 16 I&O- Last 24 Hours up to 6 AM 12/18/20 06:00 Intake Total 920 ml Output Total 1400 ml Balance -480 ml LORI HUTCHINS DO Dec 18, 2020 12:25
[2020-12-18 14:00] VITALS: BP 115/67
[2020-12-18] MEDS: ACETAMINOPHEN TAB 650MG DOSE (2X325MG) PO PRN (21:30)
[2020-12-18] MEDS: GABAPENTIN 100 MG CAP PO SCH (21:32)
[2020-12-18 22:00] VITALS: O2SAT 92
[2020-12-19] MEDS: FUROSEMIDE 40MG/4ML VIAL (J1940) IV SCH ×3 (03:28→17:55)
[2020-12-19 06:00] VITALS: BP 139/78
[2020-12-19 06:12] LABS: HEMATOCRIT 45.7 % (36.0-47.0); HEMOGLOBIN 14.9 g/dl (12.0-15.5); MEAN CORPUSCULAR HEMOGLOBIN 33.9 pg (27.0-33.0); MEAN CORPUSCULAR HGB CONC 32.6 g/dl (32.0-36.5); MEAN CORPUSCULAR VOLUME 104.1 fl (80.0-96.0); PLATELET COUNT, AUTOMATED 362 10^3/uL (150-450); RED BLOOD COUNT 4.39 10^6/uL (4.00-5.40); WHITE BLOOD COUNT 12.5 10^3/uL (4.0-10.0)
[2020-12-19 06:37] LABS: CALCIUM LEVEL 9.6 MG/DL (8.8-10.2); CREATININE FOR GFR 1.03 MG/DL (0.55-1.30); GLOMERULAR FILTRATION RATE 55.2 (>39); MAGNESIUM LEVEL 2.4 MG/DL (1.8-2.4); POTASSIUM SERUM 3.8 MEQ/L (3.5-5.1)
[2020-12-19 07:22] LABS: LYMPHOCYTES 10 % (16-44); METAMYELOCYTES 1 % (0-0); MONOCYTES 11 % (0-5); MYELOCYTES 1 % (0-0); NEUTROPHILS 72 % (28-66)
[2020-12-19 07:24] LABS: PLATELET ESTIMATE INCREASED (NORMAL)
[2020-12-19] MEDS: VITAMIN D 1,000 INTERNATIONAL UNITS TABLET PO SCH (08:16)
[2020-12-19] MEDS: LEVEMIR (INSULIN DETEMIR) 1 UNITS/0.01ML SC SCH (08:16)
[2020-12-19] MEDS: DOXYCYCLINE HYCLATE 100MG TABLET PO SCH (08:16)
[2020-12-19] MEDS: HEPARIN SOD (PORCINE) 5000UNITS/ML 1ML VIAL/SYRINGE SC SCH (08:16)
[2020-12-19] MEDS: CEFDINIR 300 MG CAP (OMNICEF) PO SCH (08:16)
[2020-12-19] MEDS: CYANOCOBALAMIN 500 MCG TAB PO SCH (08:16)
[2020-12-19] MEDS: PANTOPRAZOLE 40MG TAB (PROTONIX) PO SCH (08:16)
[2020-12-19] MEDS: FERROUS SULFATE 325MG TAB PO SCH (08:16)
[2020-12-19] MEDS: HumaLOG INSULIN (NovoLOG) PER UNIT SC SCH ×3 (08:17→17:55)
[2020-12-19] MEDS: predniSONE 20 MG TAB PO SCH (08:17)
[2020-12-19 08:18] VITALS: BP 121/71
[2020-12-19] MEDS: atenoloL 25 MG TAB PO SCH (08:18)
[2020-12-19 10:30] VITALS: O2SAT 93
--- NOTE | 2020-12-19 10:57 | REP ---
INDICATION: hypoxia COMPARISON: 12/12/2020 as well as other prior exams. TECHNIQUE: PA/Lateral FINDINGS: Lungs: There are bibasilar linear fibro atelectatic changes. No consolidating infiltrate is seen. Heart: Normal in size. Mediastinum: There is tortuosity of the thoracic aorta. The mediastinal silhouette is unchanged. Pleural angles: Unremarkable.. Bones and soft tissues: There is diffuse osteopenia with mild degenerative changes of the spine. There are multiple chronic stable compression deformities of thoracic vertebral bodies. IMPRESSION: Bilateral linear fibro atelectatic changes. No acute infiltrate. <Electronically signed by Sergio Garcia > 12/19/20 [id number]
[2020-12-19] MEDS ORDERED: DOXY100T PO (11:54)
[2020-12-19] MEDS ORDERED: PRED10TA2 PO (11:54)
[2020-12-19] MEDS ORDERED: CEFD300CAP PO (11:54)
--- NOTE | 2020-12-19 13:45 | DS.PDOC ---
Discharge Summary General Date of Admission Dec 12, 2020 at 11:05 Date of Discharge 12/19/2020 Primary Care Physician: TATE MOORE DO Attending Physician: LORI HUTCHINS DO Specialist/Consultants Involve: Blanco Bruno MD Discharge Summary PROCEDURES PERFORMED DURING STAY: None. ADMITTING DIAGNOSES: 1. Community-acquired pneumonia. 2. Back pain 3. Rheumatoid arthritis 4. Diabetes mellitus DISCHARGE DIAGNOSES: 1. Community-acquired pneumonia 2. Chronic hypoxic respiratory failure 3. Back pain/osteoporosis 4. Rheumatoid arthritis. 5. Diabetes mellitus COMPLICATIONS/CHIEF COMPLAINT: Pneumonia. HISTORY OF PRESENT ILLNESS: Patient is a 80-year-old female with past medical history of rheumatoid arthritis, osteoporosis, type 2 diabetes presents the hospital with increased shortness of breath. Patient stated that this started about 4 days ago having increased shortness of breath with low-grade fever and chills. Patient stated that she developed severe back pain from lower thoracic and lumbar area. Patient denied having this pain before. In the emergency department patient had a leukocytosis of 15.[address] of the chest showed bibasilar pneumonia right larger than left. No pulmonary emboli. Patient was admitted for treatment of pneumonia HOSPITAL COURSE: Patient was placed on oxygen as the patient had hypoxic respiratory failure. Patient had MRI to rule out possible spinal abscess due to the increased pain but the patient was only found to have compression fractures and degenerative disc changes. Patient was given pain control which helped with the patient's pain. Patient was treated with increased prednisone and antibiotics. Patient's pneumonia and white blood cell count did improve however, patient continued to require oxygen therapy. Patient did qualify for home oxygen as we are unable to wean the patient down past 1 L of oxygen and maintain her saturations above 92%. Patient was feeling better. Patient had a repeat chest x-ray did not show advancement of her pneumonia and showed improvement with bilateral fibroatelectatic scarring in the lower lungs. Ella ent was deemed ready for discharge at this point as she had passed physical therapy and was feeling better. Patient was discharged home with home oxygen therapy on 12/19/2020. DISCHARGE MEDICATIONS: Please see below. ALLERGIES: Please see below. PHYSICAL EXAMINATION ON DISCHARGE: VITAL SIGNS: Please see below. General: Alert and oriented female patient with nasal oxygen in place who was sitting in bedside chair and I walked in the room. Patient not appear to be in any acute distress. HEENT: Normocephalic, atraumatic, moist mucous membranes. Neck: No lymphadenopathy or thyromegaly Cardiac: Regular rate and rhythm, no murmurs, normal S1, normal S2 Pulm: Faint bibasilar crackles with clear upper lung viveros bilaterally Abd: Nondistended, nontender to palpation, normal bowel sounds Ext: No edema bilateral lower extremities LABORATORY DATA: Please see below. IMAGING: Portable chest x-ray on was reported to show incomplete inspiratory effort with under aeration of the lung bases. CT angiogram of the chest performed a is reported to show bibasilar pneumonia right larger than left. No pulmonary emboli. Lumbar spine MRI without followed by with contrast on 12/13/2020 was brought to show multiple chronic lumbar compression fractures. Multilevel degenerative change with a significant spinal canal stenosis. Multilevel neuroforaminal narrowing. MRI thoracic spine without followed by with contrast performed on 12/13/2020 is reported to show multiple chronic thoracic compression fractures resulting moderate thoracic kyphosis. There are degenerative changes throughout the thoracic spine including disc space narrowing, disc desiccation, and disc bulging. There is no significant spinal canal stenosis. There is no cord compression. PA and lateral chest x-ray from 12/19/2020 was reported to show bilateral linear fiber atelectatic changes. No acute infiltrate. PROGNOSIS: Fair ACTIVITY: As tolerated. DIET: Consistent carbohydrate DISCHARGE PLAN: Discharge home with home health service for home oxygen DISPOSITION: . DISCHARGE INSTRUCTIONS: 1. Follow-up with your primary care provider within 3 to 5 days discharge. 2. Continue cefdinir and doxycycline for 2 more days 3. Continue home oxygen to maintain oxygen saturations greater than 90% 4. Taper prednisone as instructed back to your home dose of 10 mg daily 5. Return the emergency department if your symptoms worsen ITEMS TO FOLLOWUP ON ON OUTPATIENT: 1. Home oxygen. DISCHARGE CONDITION: Stable. TIME SPENT ON DISCHARGE: 35 minutes. Vital Signs/I&Os Vital Signs Date Time Temp Pulse Resp B/P (MAP) Pulse Ox O2 Delivery O2 Flow Rate FiO2 12/19/20 10:30 93 Nasal Cannula 0.5 12/19/20 08:18 80 121/71 12/19/20 06:00 98.3 17 I&O- Last 24 Hours up to 6 AM 12/19/20 06:00 Intake Total 1260 ml Output Total 1075 ml Balance 185 ml Laboratory Data Labs 24H Laboratory Tests 2 12/18/20 16:29: Bedside Glucose (Misc Panel) 326H 12/18/20 21:10: Bedside Glucose (Misc Panel) 296H 12/19/20 05:24: Immature Granulocyte % (Auto) , Neutrophils (%) (Auto) , Nucleated Red Blood Cells % (auto) 0.0, Neutrophils 72H, Band Neutrophils 5, Lymphocytes (Manual) 10L, Monocytes (Manual) 11H, Metamyelocytes 1H, Myelocytes 1H, Red Blood Cell Morphology NORMAL, Platelet Estimate INCREASED, Anion Gap 7L, Glomerular Filtration Rate 55.2, Calcium Level 9.6, Magnesium Level 2.4 12/19/20 11:38: Bedside Glucose (Misc Panel) 355H CBC/BMP Laboratory Tests 12/19/20 05:24 FSBS Laboratory Tests Test 12/18/20 16:29 12/18/20 21:10 12/19/20 11:38 Range/Units Bedside Glucose (Misc Panel) 326 296 355 83-110 MG/DL Microbiology Microbiology 12/12/20 Blood Culture - Final, Complete NO GROWTH AFTER 5 DAYS 12/12/20 Respiratory Virus Panel (PCR) ([facility]) - Final, Complete 12/12/20 Blood Culture - Final, Complete NO GROWTH AFTER 5 DAYS Discharge Medications Scheduled Atenolol (Atenolol) 25 Mg Tablet, 25 MG PO DAILY, (Reported) Cefdinir (Cefdinir) 300 Mg Capsule, 300 MG PO BID Cholecalciferol (Vitamin D3) (Vitamin D3) 1,000 Unit Tablet, 1,000 UNITS PO DAILY, (Reported) Cyanocobalamin (Vitamin B-12) (Vitamin B-12) 500 Mcg Tablet, 500 MCG PO DAILY, (Reported) Doxycycline Hyclate (Doxycycline Hyclate) 100 Mg Tablet, 100 MG PO BID Ferrous Sulfate (Ferrous Sulfate) 325 Mg Tablet, 325 MG PO DAILY, (Reported) Furosemide (Furosemide) 20 Mg Tablet, 20 MG PO DAILY, (Reported) Gabapentin (Gabapentin) 100 Mg Capsule, 100 MG PO QHS, (Reported) Metformin HCl (Metformin HCl) 500 Mg Tablet, 500 MG PO BID, (Reported) Methotrexate Sodium (Methotrexate) 2.5 Mg Tablet, 12.5 MG PO QWEEK, (Reported) THURSDAYS Pantoprazole Sodium (Pantoprazole Sodium) 40 Mg Tablet.dr, 40 MG PO BID, (Reported) Potassium Gluconate (Potassium) 99 Mg Tablet, 595 MG PO DAILY, (Reported) Prednisone (Prednisone) 10 Mg Tablet, 10 MG PO TAPER Take 3 tabs daily x 4 days, then 2 tabs daily x 4 days then continue home 10 mg dose Allergies Coded Allergies: acetaminophen (Verified Allergy, Severe, 12/13/20) Lips turn blue, nausea, dry heaves, dizziness, lightheadedness, shaky, sweaty oxycodone (Verified Allergy, Severe, 12/13/20) Lips turn blue, nausea, dry heaves, dizziness, lightheadedness, shaky, sweaty Penicillins (Verified Allergy, Intermediate, rash, hives, eye problems, 12/12/20) LORI HUTCHINS DO Dec 19, 2020 13:45
[2020-12-19 14:00] VITALS: BP 120/72
== END 2020-12-19 18:08 | disposition home health service (06) | DRG 194 ==
LOC: M ED 06:19 → M ED INP 11:05 → ENRESERV 12:24 → M MSPAV 14:00
PROVIDERS: ADMIT Internal Medicine; ATTEND Family Medicine
DX: J18.9 Pneumonia, unspecified organism (principal); J96.11 Chronic respiratory failure with hypoxia; M48.55XA Collapsed vertebra, not elsewhere classified, thoracolumbar region, initial encounter for fracture; M06.9 Rheumatoid arthritis, unspecified; M81.0 Age-related osteoporosis without current pathological fracture; E11.9 Type 2 diabetes mellitus without complications; M54.5 Low back pain; M54.6 Pain in thoracic spine; E87.6 Hypokalemia; K21.9 Gastro-esophageal reflux disease without esophagitis; R11.0 Nausea; R07.81 Pleurodynia; Z79.84 Long term (current) use of oral hypoglycemic drugs; Z79.52 Long term (current) use of systemic steroids; Z79.899 Other long term (current) drug therapy; Z88.0 Allergy status to penicillin

== ENCOUNTER 2021-12-24 10:20 | Inpatient (IN) | payer MEDICARE ==
[~2021-12-24] VITALS: Ht 144.8 cm; Wt 80.9 kg
[2021-12-24] MEDS: CYANOCOBALAMIN 500 MCG TAB PO SCH (09:00)
[2021-12-24] MEDS: predniSONE 10 MG TAB PO SCH (09:00)
[2021-12-24] MEDS: VITAMIN D 1,000 INTERNATIONAL UNITS TABLET PO SCH (09:00)
[~2021-12-24 10:20] MED LIST: ATEN25TA PO; CEFD300CAP PO; CYAN500T3 PO; DOXY100T PO; FERR1TAB8 PO; FURO20TA2 PO; GABA-1171 PO; METF500T13 PO; METH2.5T48 PO; PANT40TA29 PO; POTA99TA14 PO; PRED10TA2 PO; PRED5TA PO; VITA100093 PO
[2021-12-24] MEDS ORDERED: PANTOPRAZOLE 40MG VIAL IV ONE (10:40)
[2021-12-24 11:29] LABS: BASO % 0.3 % (0.0-1.0); EOS % 0.3 % (0.0-3.0); HEMATOCRIT 37.4 % (36.0-47.0); HEMOGLOBIN 12.1 g/dl (12.0-15.5); LYMPH # 2.2 10^3/uL (1.5-5.0); LYMPH % 22.2 % (24.0-44.0); MEAN CORPUSCULAR HEMOGLOBIN 31.9 pg (27.0-33.0); MEAN CORPUSCULAR HGB CONC 32.4 g/dl (32.0-36.5); MEAN CORPUSCULAR VOLUME 98.7 fl (80.0-96.0); MONO # 0.9 10^3/uL (0.0-0.8); MONO % 9.1 % (2.0-8.0); NEUTROPHILS # 6.5 10^3/uL (1.5-8.5); NEUTROPHILS % 66.9 % (36.0-66.0); PLATELET COUNT, AUTOMATED 283 10^3/uL (150-450); RED BLOOD COUNT 3.79 10^6/uL (4.00-5.40); WHITE BLOOD COUNT 9.7 10^3/uL (4.0-10.0)
[2021-12-24 11:43] LABS: INR 1.35; PROTHROMBIN TIME 17.1 SECONDS (12.7-14.5)
[2021-12-24 11:56] LABS: ALBUMIN 3.1 GM/DL (3.2-5.2); BILIRUBIN,DIRECT 0.2 MG/DL (0.0-0.2); BILIRUBIN,TOTAL 0.5 MG/DL (0.2-1.0); CALCIUM LEVEL 8.5 MG/DL (8.8-10.2); CREATININE FOR GFR 1.1 MG/DL (0.55-1.30); POTASSIUM SERUM 3.8 MEQ/L (3.5-5.1); TOTAL PROTEIN 6.5 GM/DL (6.4-8.2)
[2021-12-24 12:17] LABS: RSV AMPLIFICATION NEGATIVE (NEGATIVE)
[2021-12-24] MEDS ORDERED: PRED10TA2 PO (13:33)
[2021-12-24] MEDS ORDERED: ELIQ5TAB PO (13:36)
[2021-12-24] MEDS ORDERED: HOME MED LIST COMPLETE! XX SCH (13:40)
[2021-12-24 17:10] LABS: HEMATOCRIT 31.6 % (36.0-47.0)
[2021-12-24] MEDS ORDERED: DEXTROSE 50% 50 ML SYRINGE IV PRN (18:55)
[2021-12-24] MEDS ORDERED: GLUCOSE 4GM CHEW TABLET PO PRN (18:55)
[2021-12-24] MEDS ORDERED: GLUCAGON INJ 1MG VIAL SC PRN (18:55)
[2021-12-24 20:33] LABS: HEMATOCRIT 29.5 % (36.0-47.0); HEMOGLOBIN 9.5 g/dl (12.0-15.5)
[2021-12-24 21:00] VITALS: BP 118/57
[2021-12-24] MEDS: INSULIN LISPRO (NovoLOG) PER UNIT SC SCH (21:00)
[2021-12-24] MEDS: NS 1,000 ML IV SCH (21:34)
[2021-12-24] MEDS: PANTOPRAZOLE 40MG VIAL IV SCH (21:34)
[2021-12-24 22:00] VITALS: BP 106/54
[2021-12-25] VITALS (17 sets, daily range): BP systolic 11–154; BP diastolic 51–74
[2021-12-25 00:46] LABS: HEMATOCRIT 25.6 % (36.0-47.0); HEMOGLOBIN 8.5 g/dl (12.0-15.5)
[2021-12-25 06:15] LABS: HEMOGLOBIN 9.2 g/dl (12.0-15.5); MEAN CORPUSCULAR HEMOGLOBIN 30.7 pg (27.0-33.0); MEAN CORPUSCULAR HGB CONC 31.7 g/dl (32.0-36.5); MEAN CORPUSCULAR VOLUME 96.7 fl (80.0-96.0); PLATELET COUNT, AUTOMATED 191 10^3/uL (150-450); WHITE BLOOD COUNT 7.5 10^3/uL (4.0-10.0)
[2021-12-25] MEDS: NS 1,000 ML IV SCH (06:24)
[2021-12-25 06:38] LABS: CALCIUM LEVEL 7.4 MG/DL (8.8-10.2); CREATININE FOR GFR 1.02 MG/DL (0.55-1.30); GLOMERULAR FILTRATION RATE 55.7 (>39); MAGNESIUM LEVEL 1.8 MG/DL (1.8-2.4); PHOSPHORUS LEVEL 2.7 MG/DL (2.5-4.9); POTASSIUM SERUM 3.7 MEQ/L (3.5-5.1)
[2021-12-25] MEDS ORDERED: ONDANSETRON 4MG 2ML VIAL IV ONE (07:00)
[2021-12-25] MEDS: PANTOPRAZOLE 40MG VIAL IV SCH ×2 (08:13→20:13)
[2021-12-25] MEDS: predniSONE 10 MG TAB PO SCH ×2 (08:14→09:10)
[2021-12-25] MEDS: CYANOCOBALAMIN 500 MCG TAB PO SCH ×2 (08:14→09:10)
[2021-12-25] MEDS: VITAMIN D 1,000 INTERNATIONAL UNITS TABLET PO SCH ×2 (08:14→09:10)
[2021-12-25] MEDS: FERROUS SULFATE 325MG TAB PO SCH ×2 (08:14→09:09)
[2021-12-25] MEDS: INSULIN LISPRO (NovoLOG) PER UNIT SC SCH ×4 (08:15→20:13)
[2021-12-25 13:39] LABS: HEMOGLOBIN 9.7 g/dl (12.0-15.5)
[2021-12-25 16:03] LABS: HEMATOCRIT 27.1 % (36.0-47.0); HEMOGLOBIN 8.9 g/dl (12.0-15.5)
[2021-12-25 20:12] LABS: HEMATOCRIT 24.1 % (36.0-47.0); HEMOGLOBIN 7.9 g/dl (12.0-15.5)
[2021-12-26] VITALS (11 sets, daily range): BP systolic 109–154; BP diastolic 52–71; O2SAT 93
[2021-12-26 00:31] LABS: HEMATOCRIT 31.7 % (36.0-47.0)
[2021-12-26 00:39] LABS: HEMOGLOBIN 10.4 g/dl (12.0-15.5)
[2021-12-26] MEDS ORDERED: ACETAMINOPHEN TAB 650MG DOSE (2X325MG) PO ONE ×2 (00:45)
[2021-12-26] MEDS ORDERED: NS 1,000 ML IV SCH (00:45)
[2021-12-26] MEDS ORDERED: LORazepam 0.5 MG TAB PO STA (00:55)
[2021-12-26] MEDS ORDERED: ACETAMINOPHEN 1000MG 100ML IV BTL (OFIRMEV) (J0131 PER 10MG) IV ONE (01:00)
[2021-12-26] MEDS ORDERED: diphenhydrAMINE 50MG/ML VIAL (J1200) IV ONE ×2 (01:00)
[2021-12-26 01:21] LABS: HEMATOCRIT 30.4 % (36.0-47.0); HEMOGLOBIN 9.9 g/dl (12.0-15.5); MEAN CORPUSCULAR HGB CONC 32.6 g/dl (32.0-36.5); MEAN CORPUSCULAR VOLUME 95.3 fl (80.0-96.0); PLATELET COUNT, AUTOMATED 159 10^3/uL (150-450); RED BLOOD COUNT 3.19 10^6/uL (4.00-5.40); WHITE BLOOD COUNT 9.2 10^3/uL (4.0-10.0)
[2021-12-26] MEDS: cefTRIAXone SOD 1 GM in D5W MINI-BAG PLUS 50 ML IV SCH (03:12)
[2021-12-26 03:34] LABS: AMORPHOUS SEDIMENT, URINE SMALL AMOUNT (NEGATIVE); BACTERIA, URINE LARGE AMOUNT; HYALINE CAST, URINE NONE SEEN /lpf (0-1); RBC, URINE 0-1 /hpf (0-3); SQUAMOUS EPITHELIAL CELL URINE SMALL AMOUNT /hpf (SMALL AMT)
[2021-12-26 03:55] LABS: RSV AMPLIFICATION NEGATIVE (NEGATIVE)
[2021-12-26 06:00] LABS: HEMATOCRIT 28.3 % (36.0-47.0); MEAN CORPUSCULAR HEMOGLOBIN 30.5 pg (27.0-33.0); MEAN CORPUSCULAR HGB CONC 31.8 g/dl (32.0-36.5); MEAN CORPUSCULAR VOLUME 95.9 fl (80.0-96.0); PLATELET COUNT, AUTOMATED 161 10^3/uL (150-450); RED BLOOD COUNT 2.95 10^6/uL (4.00-5.40); WHITE BLOOD COUNT 14.7 10^3/uL (4.0-10.0)
[2021-12-26 06:38] LABS: BLOOD UREA NITROGEN 7 MG/DL (7-18); CALCIUM LEVEL 7.3 MG/DL (8.8-10.2); CARBON DIOXIDE LEVEL 24 MEQ/L (21-32); CHLORIDE LEVEL 107 MEQ/L (98-107); CREATININE FOR GFR 0.91 MG/DL (0.55-1.30); GLOMERULAR FILTRATION RATE > 60.0 (>39); GLUCOSE, FASTING 165 MG/DL (70-100); MAGNESIUM LEVEL 1.5 MG/DL (1.8-2.4); PHOSPHORUS LEVEL 2.3 MG/DL (2.5-4.9); POTASSIUM SERUM 3.5 MEQ/L (3.5-5.1); SODIUM LEVEL 138 MEQ/L (136-145)
[2021-12-26] MEDS: INSULIN LISPRO (NovoLOG) PER UNIT SC SCH ×4 (07:30→20:20)
[2021-12-26] MEDS: PANTOPRAZOLE 40MG VIAL IV SCH ×2 (08:20→20:24)
[2021-12-26] MEDS: FERROUS SULFATE 325MG TAB PO SCH (08:21)
[2021-12-26] MEDS: MAG SULF 1GM/100ML (MAG RUN) 1 GM in IV 1 EA IV SCH ×2 (08:21→09:31)
[2021-12-26] MEDS: VITAMIN D 1,000 INTERNATIONAL UNITS TABLET PO SCH (08:21)
[2021-12-26] MEDS: CYANOCOBALAMIN 500 MCG TAB PO SCH (08:21)
[2021-12-26] MEDS: predniSONE 10 MG TAB PO SCH (08:21)
[2021-12-26] MEDS ORDERED: ISOVUE-370 76% 100ML VIAL As Ordered ONE (10:51)
[2021-12-26] MEDS ORDERED: SODIUM PHOSPHATE INJ 20 MMOL in D5W 250 ML IV ONE (11:00)
[2021-12-26 13:17] LABS: HEMATOCRIT 32.2 % (36.0-47.0); HEMOGLOBIN 10.2 g/dl (12.0-15.5)
[2021-12-26] MEDS: THIAMINE INJection 500 MG in NS 100 ML IV SCH (17:57)
[2021-12-26 20:29] LABS: HEMATOCRIT 28.2 % (36.0-47.0); HEMOGLOBIN 9.2 g/dl (12.0-15.5)
[2021-12-27 00:25] LABS: HEMATOCRIT 27.8 % (36.0-47.0); HEMOGLOBIN 9.1 g/dl (12.0-15.5)
[2021-12-27] MEDS: THIAMINE INJection 500 MG in NS 100 ML IV SCH ×2 (00:49→01:00)
[2021-12-27] MEDS: cefTRIAXone SOD 1 GM in D5W MINI-BAG PLUS 50 ML IV SCH (03:00)
[2021-12-27 03:54] VITALS: BP 154/73
[2021-12-27 06:45] LABS: HEMATOCRIT 29.1 % (36.0-47.0); HEMOGLOBIN 9.3 g/dl (12.0-15.5); MEAN CORPUSCULAR HEMOGLOBIN 30.4 pg (27.0-33.0); MEAN CORPUSCULAR VOLUME 95.1 fl (80.0-96.0); PLATELET COUNT, AUTOMATED 167 10^3/uL (150-450); RED BLOOD COUNT 3.06 10^6/uL (4.00-5.40); WHITE BLOOD COUNT 7.6 10^3/uL (4.0-10.0)
[2021-12-27 07:14] LABS: BLOOD UREA NITROGEN 4 MG/DL (7-18); CALCIUM LEVEL 7.3 MG/DL (8.8-10.2); CARBON DIOXIDE LEVEL 25 MEQ/L (21-32); CHLORIDE LEVEL 110 MEQ/L (98-107); CREATININE FOR GFR 0.71 MG/DL (0.55-1.30); GLOMERULAR FILTRATION RATE > 60.0 (>39); GLUCOSE, FASTING 124 MG/DL (70-100); MAGNESIUM LEVEL 2.2 MG/DL (1.8-2.4); PHOSPHORUS LEVEL 2.4 MG/DL (2.5-4.9); POTASSIUM SERUM 3.3 MEQ/L (3.5-5.1); SODIUM LEVEL 141 MEQ/L (136-145)
[2021-12-27] MEDS: INSULIN LISPRO (NovoLOG) PER UNIT SC SCH ×4 (07:30→20:10)
[2021-12-27 08:00] VITALS: BP 142/63
[2021-12-27] MEDS ORDERED: POTASSIUM CHLORIDE 10MEQ SR TABLET PO ONE (09:30)
[2021-12-27] MEDS: VITAMIN D 1,000 INTERNATIONAL UNITS TABLET PO SCH (09:52)
[2021-12-27] MEDS: predniSONE 10 MG TAB PO SCH (09:52)
[2021-12-27] MEDS: CYANOCOBALAMIN 500 MCG TAB PO SCH (09:53)
[2021-12-27] MEDS: PANTOPRAZOLE 40MG VIAL IV SCH ×2 (09:53→20:12)
[2021-12-27] MEDS: atenoloL 25 MG TAB PO SCH (09:53)
[2021-12-27] MEDS: K-PHOS ORIGINAL (POT.ACID PHOSPHATE) 500MG TAB PO SCH ×2 (09:53→20:12)
[2021-12-27] MEDS: FERROUS SULFATE 325MG TAB PO SCH (09:53)
[2021-12-27] MEDS ORDERED: FUROSEMIDE 40MG/4ML VIAL (J1940) IV ONE (10:00)
[2021-12-27] MEDS: SYMBICORT 160/4.5MCG INHALER 6GM INH SCH ×2 (10:56→19:50)
[2021-12-27] MEDS: IPRATROPIUM 0.5MG/ALBUTEROL 2.5MG INH SOL UD 3ML (DUONEB) NEB SCH ×3 (10:56→19:50)
[2021-12-27 11:48] VITALS: BP 129/59
[2021-12-27 12:00] VITALS: BP 140/73
[2021-12-27 20:00] VITALS: BP 113/57
[2021-12-27] MEDS ORDERED: FOSFOMYCIN TROMETHAMINE 3 GM POWDER PACKET (MONUROL) PO ONE (23:00)
[2021-12-28] VITALS: BP 161/67
[2021-12-28] MEDS: IPRATROPIUM 0.5MG/ALBUTEROL 2.5MG INH SOL UD 3ML (DUONEB) NEB SCH ×4 (01:55→20:00)
[2021-12-28 04:00] VITALS: BP 146/71
[2021-12-28 06:22] LABS: HEMATOCRIT 27.8 % (36.0-47.0); HEMOGLOBIN 9.2 g/dl (12.0-15.5); MEAN CORPUSCULAR HEMOGLOBIN 31.6 pg (27.0-33.0); MEAN CORPUSCULAR HGB CONC 33.1 g/dl (32.0-36.5); MEAN CORPUSCULAR VOLUME 95.5 fl (80.0-96.0); PLATELET COUNT, AUTOMATED 172 10^3/uL (150-450); RED BLOOD COUNT 2.91 10^6/uL (4.00-5.40); WHITE BLOOD COUNT 6.2 10^3/uL (4.0-10.0)
[2021-12-28 06:55] LABS: BLOOD UREA NITROGEN 3 MG/DL (7-18); CALCIUM LEVEL 7.5 MG/DL (8.8-10.2); CARBON DIOXIDE LEVEL 27 MEQ/L (21-32); CHLORIDE LEVEL 109 MEQ/L (98-107); CREATININE FOR GFR 0.64 MG/DL (0.55-1.30); GLOMERULAR FILTRATION RATE > 60.0 (>39); GLUCOSE, FASTING 115 MG/DL (70-100); PHOSPHORUS LEVEL 2.7 MG/DL (2.5-4.9); POTASSIUM SERUM 3.8 MEQ/L (3.5-5.1); SODIUM LEVEL 141 MEQ/L (136-145)
[2021-12-28] MEDS: INSULIN LISPRO (NovoLOG) PER UNIT SC SCH ×4 (07:30→21:00)
[2021-12-28] MEDS: SYMBICORT 160/4.5MCG INHALER 6GM INH SCH ×2 (07:43→20:00)
[2021-12-28 08:10] VITALS: BP 121/71
[2021-12-28] MEDS: CYANOCOBALAMIN 500 MCG TAB PO SCH (08:54)
[2021-12-28] MEDS: FUROSEMIDE 20 MG TAB PO SCH (08:54)
[2021-12-28] MEDS: predniSONE 10 MG TAB PO SCH (08:54)
[2021-12-28] MEDS: atenoloL 25 MG TAB PO SCH (08:54)
[2021-12-28] MEDS: VITAMIN D 1,000 INTERNATIONAL UNITS TABLET PO SCH (08:54)
[2021-12-28] MEDS: FERROUS SULFATE 325MG TAB PO SCH (08:54)
[2021-12-28] MEDS ORDERED: cefTRIAXone SOD 1 GM in D5W MINI-BAG PLUS 50 ML IV SCH (09:00)
[2021-12-28] MEDS: PANTOPRAZOLE 40MG VIAL IV SCH (09:00)
[2021-12-28] MEDS: CEFDINIR 300 MG CAP (OMNICEF) PO SCH ×2 (12:07→20:27)
[2021-12-28 12:14] VITALS: BP 113/54
[2021-12-28 15:38] VITALS: BP 134/62
[2021-12-29] MEDS: IPRATROPIUM 0.5MG/ALBUTEROL 2.5MG INH SOL UD 3ML (DUONEB) NEB SCH ×3 (01:24→14:00)
[2021-12-29 05:36] LABS: HEMATOCRIT 29.5 % (36.0-47.0); HEMOGLOBIN 9.4 g/dl (12.0-15.5); MEAN CORPUSCULAR HEMOGLOBIN 30.7 pg (27.0-33.0); MEAN CORPUSCULAR HGB CONC 31.9 g/dl (32.0-36.5); MEAN CORPUSCULAR VOLUME 96.4 fl (80.0-96.0); PLATELET COUNT, AUTOMATED 196 10^3/uL (150-450); RED BLOOD COUNT 3.06 10^6/uL (4.00-5.40); WHITE BLOOD COUNT 6.9 10^3/uL (4.0-10.0)
[2021-12-29 05:44] VITALS: BP 129/61
[2021-12-29 06:30] LABS: BLOOD UREA NITROGEN 6 MG/DL (7-18); CARBON DIOXIDE LEVEL 28 MEQ/L (21-32); CHLORIDE LEVEL 109 MEQ/L (98-107); CREATININE FOR GFR 0.78 MG/DL (0.55-1.30); GLOMERULAR FILTRATION RATE > 60.0 (>39); GLUCOSE, FASTING 147 MG/DL (70-100); MAGNESIUM LEVEL 1.9 MG/DL (1.8-2.4); PHOSPHORUS LEVEL 2.5 MG/DL (2.5-4.9); POTASSIUM SERUM 3.9 MEQ/L (3.5-5.1); SODIUM LEVEL 142 MEQ/L (136-145)
[2021-12-29] MEDS: SYMBICORT 160/4.5MCG INHALER 6GM INH SCH (08:00)
[2021-12-29] MEDS: VITAMIN D 1,000 INTERNATIONAL UNITS TABLET PO SCH (08:13)
[2021-12-29] MEDS: INSULIN LISPRO (NovoLOG) PER UNIT SC SCH ×2 (08:13→12:26)
[2021-12-29] MEDS: CEFDINIR 300 MG CAP (OMNICEF) PO SCH (08:13)
[2021-12-29] MEDS: CYANOCOBALAMIN 500 MCG TAB PO SCH (08:14)
[2021-12-29] MEDS: FERROUS SULFATE 325MG TAB PO SCH (08:14)
[2021-12-29] MEDS: FUROSEMIDE 20 MG TAB PO SCH (08:14)
[2021-12-29 08:16] VITALS: BP 124/59
[2021-12-29] MEDS: atenoloL 25 MG TAB PO SCH (08:16)
[2021-12-29] MEDS: predniSONE 10 MG TAB PO SCH (08:16)
[2021-12-29] MEDS ORDERED: PANTOPRAZOLE 40MG TAB (PROTONIX) PO SCH (09:00)
[2021-12-29] MEDS ORDERED: SYMB16INH INH (14:22)
[2021-12-29] MEDS ORDERED: CEFD300CAP PO (14:22)
== END 2021-12-29 18:50 | disposition home or self-care (01) | DRG 377 ==
LOC: M ED 11:13 → M ED INP 12:49 → M PCU 20:44 → M MS5PR 12-28 16:09
PROVIDERS: ADMIT Internal Medicine; ATTEND Student in an Organized Health Care Education/Training Program
PROC: 30233N1 Transfusion of Nonautologous Red Blood Cells into Peripheral Vein, Percutaneous Approach (ICD-10-PCS; principal; 2021-12-25)
DX: K57.31 Diverticulosis of large intestine without perforation or abscess with bleeding (principal); J96.01 Acute respiratory failure with hypoxia; D68.32 Hemorrhagic disorder due to extrinsic circulating anticoagulants; J95.84 Transfusion-related acute lung injury (TRALI); E87.2 Acidosis; N39.0 Urinary tract infection, site not specified; I10 Essential (primary) hypertension; K21.9 Gastro-esophageal reflux disease without esophagitis; M81.0 Age-related osteoporosis without current pathological fracture; K76.0 Fatty (change of) liver, not elsewhere classified; M06.9 Rheumatoid arthritis, unspecified; J44.9 Chronic obstructive pulmonary disease, unspecified; R00.0 Tachycardia, unspecified; E11.9 Type 2 diabetes mellitus without complications; Z79.84 Long term (current) use of oral hypoglycemic drugs; Z79.52 Long term (current) use of systemic steroids; Z79.899 Other long term (current) drug therapy; Z88.5 Allergy status to narcotic agent; Z88.6 Allergy status to analgesic agent; Z88.0 Allergy status to penicillin; Z86.718 Personal history of other venous thrombosis and embolism; Z79.01 Long term (current) use of anticoagulants

== ENCOUNTER → 2022-06-16 | Outpatient (REF) | payer MEDICARE ==
[~2022-06-16] MED LIST changes: +ACET-897 PO; +CITRTAB19 PO; +ELIQ5TAB PO; +FOLI800C PO; +GABA-1171; +METF-877 PO; +PANT-23 PO; +POTA595T8 PO; +SITA50TAB PO; +SYMB16INH INH
== END ==
LOC: M LAB REF 16:27
PROVIDERS: ATTEND Physician Assistant Medical
DX: R06.02 Shortness of breath (principal)

== ENCOUNTER 2022-08-03 14:38 | Inpatient (IN) | payer MEDICARE ==
[~2022-08-03] VITALS: Ht 142.2 cm; Wt 66.3 kg
[2022-08-03 16:56] LABS: BASO % 0.3 % (0.0-1.0); EOS # 0.2 10^3/uL (0.0-0.5); EOS % 3.7 % (0.0-3.0); HEMATOCRIT 33.8 % (36.0-47.0); HEMOGLOBIN 10.2 g/dl (12.0-15.5); LYMPH # 0.8 10^3/uL (1.5-5.0); LYMPH % 13.1 % (24.0-44.0); MEAN CORPUSCULAR HGB CONC 30.2 g/dl (32.0-36.5); MEAN CORPUSCULAR VOLUME 89.4 fl (80.0-96.0); MONO # 0.2 10^3/uL (0.0-0.8); NEUTROPHILS # 4.8 10^3/uL (1.5-8.5); NEUTROPHILS % 79.7 % (36.0-66.0); PLATELET COUNT, AUTOMATED 345 10^3/uL (150-450); RED BLOOD COUNT 3.78 10^6/uL (4.00-5.40)
[2022-08-03 17:06] LABS: BLOOD UREA NITROGEN 13 MG/DL (9-23); CARBON DIOXIDE LEVEL 27 MMOL/L (20-31); CHLORIDE LEVEL 106 MMOL/L (98-107); CREATININE FOR GFR 0.71 MG/DL (0.55-1.30); GLOMERULAR FILTRATION RATE > 60.0 (>39); GLUCOSE, FASTING 86 MG/DL (74-106); SODIUM LEVEL 138 MMOL/L (136-145)
[2022-08-03] MEDS ORDERED: METF10004 PO (17:45)
[2022-08-03] MEDS ORDERED: METH2.5T48 PO (17:45)
[2022-08-03] MEDS ORDERED: HOME MED LIST COMPLETE! XX SCH (17:50)
[2022-08-03 17:52] LABS: RSV AMPLIFICATION NEGATIVE (NEGATIVE)
[2022-08-03] MEDS ORDERED: DOXYCYCLINE HYCLATE 100MG TABLET PO ONE (18:35)
[2022-08-03] MEDS ORDERED: cefTRIAXone SOD 1 GM in D5W MINI-BAG PLUS 50 ML IV ONE (18:35)
[2022-08-03 20:43] LABS: ERYTHROCYTE SEDIMENTATION RATE 91 mm/hr (0-30)
[2022-08-03 21:00] VITALS: BP 125/74
[2022-08-03] MEDS: PANTOPRAZOLE 40MG TAB (PROTONIX) PO SCH (21:40)
[2022-08-03] MEDS: GABAPENTIN 100 MG CAP PO SCH (21:40)
[2022-08-03] MEDS: ACETAMINOPHEN TAB 650MG DOSE (2X325MG) PO PRN (21:43)
[2022-08-03] MEDS ORDERED: DEXTROSE 50% 50ML SYRINGE IV PRN (21:55)
[2022-08-03] MEDS ORDERED: GLUCAGON INJ 1MG VIAL SC PRN (21:55)
[2022-08-03] MEDS ORDERED: GLUCOSE 4GM CHEW TABLET PO PRN (21:55)
[2022-08-04 05:30] VITALS: BP 127/71
[2022-08-04 06:38] LABS: HEMATOCRIT 32.3 % (36.0-47.0); HEMOGLOBIN 9.6 g/dl (12.0-15.5); MEAN CORPUSCULAR HEMOGLOBIN 26.8 pg (27.0-33.0); MEAN CORPUSCULAR HGB CONC 29.7 g/dl (32.0-36.5); MEAN CORPUSCULAR VOLUME 90.2 fl (80.0-96.0); PLATELET COUNT, AUTOMATED 310 10^3/uL (150-450); RED BLOOD COUNT 3.58 10^6/uL (4.00-5.40); WHITE BLOOD COUNT 7.8 10^3/uL (4.0-10.0)
[2022-08-04 06:58] LABS: ALBUMIN 2.1 G/DL (3.2-5.2); ALKALINE PHOSPHATASE 75 U/L (46-116); ALT/SGPT 14 U/L (7.0-40); AST/SGOT 32 U/L (<34); BILIRUBIN,TOTAL 0.4 MG/DL (0.3-1.2); BLOOD UREA NITROGEN 11 MG/DL (9-23); CALCIUM LEVEL 7.6 MG/DL (8.3-10.6); CARBON DIOXIDE LEVEL 25 MMOL/L (20-31); CHLORIDE LEVEL 106 MMOL/L (98-107); CREATININE FOR GFR 0.77 MG/DL (0.55-1.30); GLOMERULAR FILTRATION RATE > 60.0 (>39); GLUCOSE, FASTING 65 MG/DL (74-106); MAGNESIUM LEVEL 1.8 MG/DL (1.8-2.4); POTASSIUM SERUM 4.4 MMOL/L (3.5-5.1); SODIUM LEVEL 141 MMOL/L (136-145); TOTAL PROTEIN 5.2 G/DL (5.7-8.2)
[2022-08-04] MEDS ORDERED: INSULIN LISPRO (NovoLOG) PER UNIT SC SCH ×2 (07:30→21:00)
[2022-08-04 08:05] VITALS: BP 128/69
[2022-08-04] MEDS ORDERED: FUROSEMIDE 40MG/4ML VIAL IV SCH (09:00)
[2022-08-04] MEDS ORDERED: predniSONE 5 MG TAB PO SCH (09:00)
[2022-08-04] MEDS: ENOXAPARIN 40MG/0.4ML SYRINGE (J1650 PER 10MG) SC SCH (09:01)
[2022-08-04] MEDS: PANTOPRAZOLE 40MG TAB (PROTONIX) PO SCH ×2 (09:02→21:43)
[2022-08-04] MEDS: DOXYCYCLINE HYCLATE 100MG TABLET PO SCH ×2 (09:02→21:43)
[2022-08-04] MEDS: GABAPENTIN 100 MG CAP PO SCH ×2 (09:02→21:43)
[2022-08-04] MEDS: predniSONE 20 MG TAB PO SCH (09:02)
[2022-08-04 09:25] LABS: HEMOGLOBIN A1c 7.2 % (4.0-6.0)
[2022-08-04] MEDS: ACETAMINOPHEN TAB 650MG DOSE (2X325MG) PO PRN (11:16)
[2022-08-04 14:00] VITALS: BP 127/71
[2022-08-04 18:24] VITALS: BP 124/71
[2022-08-04] MEDS: FUROSEMIDE 40MG/4ML VIAL IV SCH (18:24)
[2022-08-04 20:00] VITALS: BP 125/69
[2022-08-04] MEDS: cefTRIAXone SOD 1 GM in D5W MINI-BAG PLUS 50 ML IV SCH (21:43)
[2022-08-04] MEDS ORDERED: INSULIN LISPRO (NovoLOG) PER UNIT SC ONE (22:00)
[2022-08-05 05:56] VITALS: BP 122/55
[2022-08-05 06:36] LABS: HEMOGLOBIN 9.4 g/dl (12.0-15.5); MEAN CORPUSCULAR HEMOGLOBIN 26.6 pg (27.0-33.0); MEAN CORPUSCULAR HGB CONC 30.3 g/dl (32.0-36.5); MEAN CORPUSCULAR VOLUME 87.8 fl (80.0-96.0); PLATELET COUNT, AUTOMATED 354 10^3/uL (150-450); RED BLOOD COUNT 3.53 10^6/uL (4.00-5.40); WHITE BLOOD COUNT 8.2 10^3/uL (4.0-10.0)
[2022-08-05 07:12] LABS: ALBUMIN 2.3 G/DL (3.2-5.2); ALKALINE PHOSPHATASE 84 U/L (46-116); ALT/SGPT 16 U/L (7.0-40); AST/SGOT 22 U/L (<34); BILIRUBIN,TOTAL 0.3 MG/DL (0.3-1.2); BLOOD UREA NITROGEN 12 MG/DL (9-23); CALCIUM LEVEL 7.9 MG/DL (8.3-10.6); CARBON DIOXIDE LEVEL 29 MMOL/L (20-31); CHLORIDE LEVEL 102 MMOL/L (98-107); CREATININE FOR GFR 0.74 MG/DL (0.55-1.30); GLOMERULAR FILTRATION RATE > 60.0 (>39); GLUCOSE, FASTING 157 MG/DL (74-106); POTASSIUM SERUM 3.7 MMOL/L (3.5-5.1); SODIUM LEVEL 139 MMOL/L (136-145); TOTAL PROTEIN 5.6 G/DL (5.7-8.2)
[2022-08-05] MEDS: FUROSEMIDE 40MG/4ML VIAL IV SCH ×3 (08:32→17:42)
[2022-08-05] MEDS: predniSONE 20 MG TAB PO SCH (08:34)
[2022-08-05] MEDS: DOXYCYCLINE HYCLATE 100MG TABLET PO SCH ×2 (08:35→20:44)
[2022-08-05] MEDS: PANTOPRAZOLE 40MG TAB (PROTONIX) PO SCH ×2 (08:35→20:44)
[2022-08-05] MEDS: ENOXAPARIN 40MG/0.4ML SYRINGE (J1650 PER 10MG) SC SCH (08:35)
[2022-08-05] MEDS: GABAPENTIN 100 MG CAP PO SCH ×2 (08:35→20:44)
[2022-08-05 08:38] VITALS: BP 96/52
[2022-08-05] MEDS: ACETAMINOPHEN TAB 650MG DOSE (2X325MG) PO PRN (13:07)
[2022-08-05 14:00] VITALS: BP 119/58
[2022-08-05] MEDS: INSULIN LISPRO (NovoLOG) PER UNIT SC SCH ×3 (15:34→20:39)
[2022-08-05] MEDS: cefTRIAXone SOD 1 GM in D5W MINI-BAG PLUS 50 ML IV SCH (19:53)
[2022-08-05 21:32] VITALS: BP 112/55
[2022-08-06 05:06] VITALS: BP 156/64
[2022-08-06 06:54] LABS: HEMATOCRIT 32.2 % (36.0-47.0); HEMOGLOBIN 9.8 g/dl (12.0-15.5); MEAN CORPUSCULAR HEMOGLOBIN 27.1 pg (27.0-33.0); MEAN CORPUSCULAR HGB CONC 30.4 g/dl (32.0-36.5); PLATELET COUNT, AUTOMATED 351 10^3/uL (150-450); RED BLOOD COUNT 3.62 10^6/uL (4.00-5.40); WHITE BLOOD COUNT 6.8 10^3/uL (4.0-10.0)
[2022-08-06 07:22] LABS: ALBUMIN 2.3 G/DL (3.2-5.2); ALKALINE PHOSPHATASE 86 U/L (46-116); ALT/SGPT 15 U/L (7.0-40); AST/SGOT 19 U/L (<34); BILIRUBIN,TOTAL 0.2 MG/DL (0.3-1.2); BLOOD UREA NITROGEN 14 MG/DL (9-23); CARBON DIOXIDE LEVEL 31 MMOL/L (20-31); CHLORIDE LEVEL 103 MMOL/L (98-107); CREATININE FOR GFR 0.77 MG/DL (0.55-1.30); GLOMERULAR FILTRATION RATE > 60.0 (>39); GLUCOSE, FASTING 95 MG/DL (74-106); POTASSIUM SERUM 3.4 MMOL/L (3.5-5.1); SODIUM LEVEL 141 MMOL/L (136-145); TOTAL PROTEIN 5.7 G/DL (5.7-8.2)
[2022-08-06] MEDS: INSULIN LISPRO (NovoLOG) PER UNIT SC SCH ×4 (07:30→20:24)
[2022-08-06] MEDS ORDERED: POTASSIUM CHLORIDE 10MEQ SR TABLET PO ONE (08:00)
[2022-08-06] MEDS: FUROSEMIDE 40MG/4ML VIAL IV SCH (08:50)
[2022-08-06] MEDS: ENOXAPARIN 40MG/0.4ML SYRINGE (J1650 PER 10MG) SC SCH (08:50)
[2022-08-06] MEDS: DOXYCYCLINE HYCLATE 100MG TABLET PO SCH ×2 (08:51→20:24)
[2022-08-06] MEDS: GABAPENTIN 100 MG CAP PO SCH ×2 (08:51→20:24)
[2022-08-06] MEDS: PANTOPRAZOLE 40MG TAB (PROTONIX) PO SCH ×2 (08:51→20:24)
[2022-08-06] MEDS: predniSONE 20 MG TAB PO SCH (08:51)
[2022-08-06 14:00] VITALS: BP 101/56
[2022-08-06] MEDS: FUROSEMIDE 100MG/10ML VIAL IV SCH (17:21)
[2022-08-06] MEDS: cefTRIAXone SOD 1 GM in D5W MINI-BAG PLUS 50 ML IV SCH (20:23)
[2022-08-06] MEDS: ACETAMINOPHEN TAB 650MG DOSE (2X325MG) PO PRN (20:24)
[2022-08-06 22:00] VITALS: BP 106/59
[2022-08-07 06:00] VITALS: BP 117/58
[2022-08-07 06:07] LABS: HEMATOCRIT 35.4 % (36.0-47.0); HEMOGLOBIN 10.6 g/dl (12.0-15.5); MEAN CORPUSCULAR HEMOGLOBIN 26.6 pg (27.0-33.0); MEAN CORPUSCULAR HGB CONC 29.9 g/dl (32.0-36.5); MEAN CORPUSCULAR VOLUME 88.9 fl (80.0-96.0); PLATELET COUNT, AUTOMATED 364 10^3/uL (150-450); RED BLOOD COUNT 3.98 10^6/uL (4.00-5.40); WHITE BLOOD COUNT 6.9 10^3/uL (4.0-10.0)
[2022-08-07 06:47] LABS: ALBUMIN 2.6 G/DL (3.2-5.2); ALKALINE PHOSPHATASE 95 U/L (46-116); ALT/SGPT 18 U/L (7.0-40); AST/SGOT 27 U/L (<34); BILIRUBIN,TOTAL 0.2 MG/DL (0.3-1.2); BLOOD UREA NITROGEN 22 MG/DL (9-23); CALCIUM LEVEL 8.8 MG/DL (8.3-10.6); CARBON DIOXIDE LEVEL 31 MMOL/L (20-31); CHLORIDE LEVEL 101 MMOL/L (98-107); CREATININE FOR GFR 0.77 MG/DL (0.55-1.30); GLOMERULAR FILTRATION RATE > 60.0 (>39); GLUCOSE, FASTING 102 MG/DL (74-106); POTASSIUM SERUM 3.9 MMOL/L (3.5-5.1); SODIUM LEVEL 140 MMOL/L (136-145); TOTAL PROTEIN 6.1 G/DL (5.7-8.2)
[2022-08-07] MEDS: INSULIN LISPRO (NovoLOG) PER UNIT SC SCH ×4 (07:16→20:04)
[2022-08-07] MEDS: GABAPENTIN 100 MG CAP PO SCH ×2 (09:18→20:09)
[2022-08-07] MEDS: LEVEMIR (INSULIN DETEMIR) 1 UNITS/0.01ML SC SCH (09:18)
[2022-08-07] MEDS: ENOXAPARIN 40MG/0.4ML SYRINGE (J1650 PER 10MG) SC SCH (09:18)
[2022-08-07] MEDS: FUROSEMIDE 100MG/10ML VIAL IV SCH ×2 (09:19→17:00)
[2022-08-07] MEDS: predniSONE 10MG TAB PO SCH (09:19)
[2022-08-07] MEDS: PANTOPRAZOLE 40MG TAB (PROTONIX) PO SCH ×2 (09:19→20:09)
[2022-08-07 15:40] VITALS: BP 85/52
[2022-08-07 15:43] VITALS: BP 100/50
[2022-08-07 15:45] VITALS: BP 98/54
[2022-08-07 22:00] VITALS: BP 120/61
[2022-08-08 05:30] VITALS: BP 124/64
[2022-08-08 06:31] LABS: HEMATOCRIT 35.5 % (36.0-47.0); HEMOGLOBIN 10.8 g/dl (12.0-15.5); MEAN CORPUSCULAR HEMOGLOBIN 27.3 pg (27.0-33.0); MEAN CORPUSCULAR HGB CONC 30.4 g/dl (32.0-36.5); MEAN CORPUSCULAR VOLUME 89.6 fl (80.0-96.0); PLATELET COUNT, AUTOMATED 380 10^3/uL (150-450); RED BLOOD COUNT 3.96 10^6/uL (4.00-5.40)
[2022-08-08 07:04] LABS: ALBUMIN 2.5 G/DL (3.2-5.2); ALKALINE PHOSPHATASE 94 U/L (46-116); ALT/SGPT 21 U/L (7.0-40); AST/SGOT 35 U/L (<34); BILIRUBIN,TOTAL 0.3 MG/DL (0.3-1.2); BLOOD UREA NITROGEN 35 MG/DL (9-23); CALCIUM LEVEL 8.8 MG/DL (8.3-10.6); CARBON DIOXIDE LEVEL 29 MMOL/L (20-31); CHLORIDE LEVEL 102 MMOL/L (98-107); CREATININE FOR GFR 0.85 MG/DL (0.55-1.30); GLOMERULAR FILTRATION RATE > 60.0 (>39); GLUCOSE, FASTING 94 MG/DL (74-106); POTASSIUM SERUM 4.2 MMOL/L (3.5-5.1); SODIUM LEVEL 139 MMOL/L (136-145)
[2022-08-08] MEDS: INSULIN LISPRO (NovoLOG) PER UNIT SC SCH ×4 (07:21→21:00)
[2022-08-08] MEDS: ENOXAPARIN 40MG/0.4ML SYRINGE (J1650 PER 10MG) SC SCH (08:37)
[2022-08-08] MEDS: LEVEMIR (INSULIN DETEMIR) 1 UNITS/0.01ML SC SCH (08:38)
[2022-08-08] MEDS: PANTOPRAZOLE 40MG TAB (PROTONIX) PO SCH ×2 (08:38→20:26)
[2022-08-08] MEDS: predniSONE 10MG TAB PO SCH (08:38)
[2022-08-08] MEDS: GABAPENTIN 100 MG CAP PO SCH ×2 (08:38→20:26)
[2022-08-08] MEDS ORDERED: FUROSEMIDE 100MG/10ML VIAL IV SCH (09:00)
[2022-08-09 06:00] VITALS: BP 131/64
[2022-08-09 06:29] LABS: HEMATOCRIT 35.4 % (36.0-47.0); HEMOGLOBIN 10.7 g/dl (12.0-15.5); MEAN CORPUSCULAR HGB CONC 30.2 g/dl (32.0-36.5); MEAN CORPUSCULAR VOLUME 89.2 fl (80.0-96.0); PLATELET COUNT, AUTOMATED 411 10^3/uL (150-450); RED BLOOD COUNT 3.97 10^6/uL (4.00-5.40); WHITE BLOOD COUNT 10.7 10^3/uL (4.0-10.0)
[2022-08-09 06:57] LABS: ALBUMIN 2.6 G/DL (3.2-5.2); ALKALINE PHOSPHATASE 97 U/L (46-116); ALT/SGPT 24 U/L (7.0-40); AST/SGOT < 8 U/L (<34); BILIRUBIN,TOTAL 0.3 MG/DL (0.3-1.2); BLOOD UREA NITROGEN 28 MG/DL (9-23); CALCIUM LEVEL 8.6 MG/DL (8.3-10.6); CARBON DIOXIDE LEVEL 31 MMOL/L (20-31); CHLORIDE LEVEL 102 MMOL/L (98-107); GLOMERULAR FILTRATION RATE > 60.0 (>39); GLUCOSE, FASTING 90 MG/DL (74-106); SODIUM LEVEL 140 MMOL/L (136-145); TOTAL PROTEIN 5.9 G/DL (5.7-8.2)
[2022-08-09] MEDS: INSULIN LISPRO (NovoLOG) PER UNIT SC SCH ×4 (07:30→21:23)
[2022-08-09] MEDS: FUROSEMIDE 40 MG TAB PO SCH (09:40)
[2022-08-09] MEDS: LEVEMIR (INSULIN DETEMIR) 1 UNITS/0.01ML SC SCH (09:40)
[2022-08-09] MEDS: predniSONE 5 MG TAB PO SCH (09:40)
[2022-08-09] MEDS: ENOXAPARIN 40MG/0.4ML SYRINGE (J1650 PER 10MG) SC SCH (09:40)
[2022-08-09] MEDS: PANTOPRAZOLE 40MG TAB (PROTONIX) PO SCH ×2 (09:41→20:00)
[2022-08-09] MEDS: GABAPENTIN 100 MG CAP PO SCH ×2 (09:41→20:00)
[2022-08-10 06:00] VITALS: BP 135/100
[2022-08-10 06:02] LABS: HEMATOCRIT 34.3 % (36.0-47.0); HEMOGLOBIN 10.5 g/dl (12.0-15.5); MEAN CORPUSCULAR HEMOGLOBIN 27.1 pg (27.0-33.0); MEAN CORPUSCULAR HGB CONC 30.6 g/dl (32.0-36.5); MEAN CORPUSCULAR VOLUME 88.4 fl (80.0-96.0); PLATELET COUNT, AUTOMATED 390 10^3/uL (150-450); RED BLOOD COUNT 3.88 10^6/uL (4.00-5.40); WHITE BLOOD COUNT 10.1 10^3/uL (4.0-10.0)
[2022-08-10 06:32] LABS: ALBUMIN 2.6 G/DL (3.2-5.2); ALKALINE PHOSPHATASE 105 U/L (46-116); ALT/SGPT 29 U/L (7.0-40); AST/SGOT 28 U/L (<34); BILIRUBIN,TOTAL 0.3 MG/DL (0.3-1.2); BLOOD UREA NITROGEN 26 MG/DL (9-23); CALCIUM LEVEL 8.5 MG/DL (8.3-10.6); CARBON DIOXIDE LEVEL 28 MMOL/L (20-31); CHLORIDE LEVEL 103 MMOL/L (98-107); CREATININE FOR GFR 0.71 MG/DL (0.55-1.30); GLOMERULAR FILTRATION RATE > 60.0 (>39); GLUCOSE, FASTING 96 MG/DL (74-106); POTASSIUM SERUM 4.4 MMOL/L (3.5-5.1); SODIUM LEVEL 139 MMOL/L (136-145); TOTAL PROTEIN 5.9 G/DL (5.7-8.2)
[2022-08-10 07:30] VITALS: BP 126/66
[2022-08-10] MEDS: INSULIN LISPRO (NovoLOG) PER UNIT SC SCH ×4 (07:30→21:56)
[2022-08-10] MEDS: predniSONE 5 MG TAB PO SCH (09:21)
[2022-08-10] MEDS: FUROSEMIDE 40 MG TAB PO SCH (09:21)
[2022-08-10] MEDS: LEVEMIR (INSULIN DETEMIR) 1 UNITS/0.01ML SC SCH (09:21)
[2022-08-10] MEDS: PANTOPRAZOLE 40MG TAB (PROTONIX) PO SCH ×2 (09:21→20:16)
[2022-08-10] MEDS: GABAPENTIN 100 MG CAP PO SCH ×2 (09:21→20:16)
[2022-08-10] MEDS: ENOXAPARIN 40MG/0.4ML SYRINGE (J1650 PER 10MG) SC SCH (09:22)
[2022-08-10] MEDS: ACETAMINOPHEN TAB 650MG DOSE (2X325MG) PO PRN (14:59)
[2022-08-11 05:16] VITALS: BP 109/64
[2022-08-11] MEDS: PANTOPRAZOLE 40MG TAB (PROTONIX) PO SCH ×2 (09:14→21:10)
[2022-08-11] MEDS: GABAPENTIN 100 MG CAP PO SCH ×2 (09:14→21:10)
[2022-08-11] MEDS: predniSONE 5 MG TAB PO SCH (09:14)
[2022-08-11] MEDS: ENOXAPARIN 40MG/0.4ML SYRINGE (J1650 PER 10MG) SC SCH (09:14)
[2022-08-11] MEDS: FUROSEMIDE 40 MG TAB PO SCH (09:14)
[2022-08-11] MEDS: ACETAMINOPHEN TAB 650MG DOSE (2X325MG) PO PRN ×2 (09:14→21:10)
[2022-08-11] MEDS: LEVEMIR (INSULIN DETEMIR) 1 UNITS/0.01ML SC SCH (09:15)
[2022-08-11] MEDS: INSULIN LISPRO (NovoLOG) PER UNIT SC SCH ×4 (09:15→21:22)
[2022-08-12] MEDS: ACETAMINOPHEN TAB 650MG DOSE (2X325MG) PO PRN ×2 (03:38→18:06)
[2022-08-12 06:00] VITALS: BP 112/48
[2022-08-12] MEDS: INSULIN LISPRO (NovoLOG) PER UNIT SC SCH ×4 (08:26→21:00)
[2022-08-12] MEDS: LEVEMIR (INSULIN DETEMIR) 1 UNITS/0.01ML SC SCH (08:26)
[2022-08-12] MEDS: predniSONE 5 MG TAB PO SCH (08:27)
[2022-08-12] MEDS: ENOXAPARIN 40MG/0.4ML SYRINGE (J1650 PER 10MG) SC SCH (08:27)
[2022-08-12] MEDS: FUROSEMIDE 40 MG TAB PO SCH (08:27)
[2022-08-12] MEDS: GABAPENTIN 100 MG CAP PO SCH ×2 (08:27→20:10)
[2022-08-12] MEDS: PANTOPRAZOLE 40MG TAB (PROTONIX) PO SCH ×2 (08:27→20:10)
[2022-08-12] MEDS: LIDOCAINE 5% (LIDODERM) PATCH TD PRN (20:10)
[2022-08-13 05:38] VITALS: BP 103/50
[2022-08-13 06:00] VITALS: BP 103/50
[2022-08-13] MEDS: INSULIN LISPRO (NovoLOG) PER UNIT SC SCH ×4 (07:30→20:02)
[2022-08-13] MEDS: FUROSEMIDE 40 MG TAB PO SCH (09:00)
[2022-08-13 09:50] VITALS: BP 98/47
[2022-08-13] MEDS: LEVEMIR (INSULIN DETEMIR) 1 UNITS/0.01ML SC SCH (09:51)
[2022-08-13] MEDS: ENOXAPARIN 40MG/0.4ML SYRINGE (J1650 PER 10MG) SC SCH (09:51)
[2022-08-13] MEDS: predniSONE 5 MG TAB PO SCH (09:51)
[2022-08-13] MEDS: GABAPENTIN 100 MG CAP PO SCH ×2 (09:52→20:01)
[2022-08-13] MEDS: PANTOPRAZOLE 40MG TAB (PROTONIX) PO SCH ×2 (09:52→20:01)
[2022-08-13] MEDS: ACETAMINOPHEN TAB 650MG DOSE (2X325MG) PO PRN ×2 (09:53→17:29)
[2022-08-13] MEDS: VANICREAM MOISTURIZING SKIN CREAM 113GM TUBE TOP SCH (12:23)
[2022-08-14 05:23] VITALS: BP 111/56
[2022-08-14] MEDS: INSULIN LISPRO (NovoLOG) PER UNIT SC SCH ×4 (07:30→21:00)
[2022-08-14] MEDS: FUROSEMIDE 40 MG TAB PO SCH (09:00)
[2022-08-14 10:29] VITALS: BP 102/39
[2022-08-14] MEDS: GABAPENTIN 100 MG CAP PO SCH ×2 (10:31→20:28)
[2022-08-14] MEDS: PANTOPRAZOLE 40MG TAB (PROTONIX) PO SCH ×2 (10:31→20:28)
[2022-08-14] MEDS: predniSONE 5 MG TAB PO SCH (10:31)
[2022-08-14] MEDS: VANICREAM MOISTURIZING SKIN CREAM 113GM TUBE TOP SCH (10:32)
[2022-08-14] MEDS: ENOXAPARIN 40MG/0.4ML SYRINGE (J1650 PER 10MG) SC SCH (10:32)
[2022-08-14] MEDS: LEVEMIR (INSULIN DETEMIR) 1 UNITS/0.01ML SC SCH (10:32)
[2022-08-14] MEDS: ACETAMINOPHEN TAB 650MG DOSE (2X325MG) PO PRN ×2 (10:37→15:25)
[2022-08-15 05:55] VITALS: BP 105/59
[2022-08-15] MEDS: INSULIN LISPRO (NovoLOG) PER UNIT SC SCH ×4 (07:26→20:45)
[2022-08-15] MEDS: FUROSEMIDE 40 MG TAB PO SCH (09:00)
[2022-08-15] MEDS: GABAPENTIN 100 MG CAP PO SCH ×2 (09:11→20:01)
[2022-08-15] MEDS: ACETAMINOPHEN TAB 650MG DOSE (2X325MG) PO PRN (09:11)
[2022-08-15] MEDS: PANTOPRAZOLE 40MG TAB (PROTONIX) PO SCH ×2 (09:12→20:01)
[2022-08-15] MEDS: predniSONE 5 MG TAB PO SCH (09:12)
[2022-08-15] MEDS: ENOXAPARIN 40MG/0.4ML SYRINGE (J1650 PER 10MG) SC SCH (09:12)
[2022-08-15] MEDS: LEVEMIR (INSULIN DETEMIR) 1 UNITS/0.01ML SC SCH (09:12)
[2022-08-15] MEDS: VANICREAM MOISTURIZING SKIN CREAM 113GM TUBE TOP SCH (09:13)
[2022-08-16] MEDS: ACETAMINOPHEN TAB 650MG DOSE (2X325MG) PO PRN (00:50)
[2022-08-16 06:00] VITALS: BP 118/75
[2022-08-16] MEDS: GABAPENTIN 100 MG CAP PO SCH ×2 (09:32→20:33)
[2022-08-16] MEDS: ENOXAPARIN 40MG/0.4ML SYRINGE (J1650 PER 10MG) SC SCH (09:32)
[2022-08-16] MEDS: INSULIN LISPRO (NovoLOG) PER UNIT SC SCH ×4 (09:32→20:33)
[2022-08-16] MEDS: LEVEMIR (INSULIN DETEMIR) 1 UNITS/0.01ML SC SCH (09:32)
[2022-08-16] MEDS: PANTOPRAZOLE 40MG TAB (PROTONIX) PO SCH ×2 (09:33→20:33)
[2022-08-16] MEDS: predniSONE 10MG TAB PO SCH (09:33)
[2022-08-16] MEDS: FUROSEMIDE 20 MG TAB PO SCH (09:33)
[2022-08-16] MEDS: VANICREAM MOISTURIZING SKIN CREAM 113GM TUBE TOP SCH (09:34)
[2022-08-17 05:10] VITALS: BP 120/71
[2022-08-17 06:00] VITALS: BP 120/71
[2022-08-17] MEDS: INSULIN LISPRO (NovoLOG) PER UNIT SC SCH ×4 (09:12→21:01)
[2022-08-17] MEDS: LEVEMIR (INSULIN DETEMIR) 1 UNITS/0.01ML SC SCH (09:13)
[2022-08-17] MEDS: GABAPENTIN 100 MG CAP PO SCH ×2 (09:13→21:00)
[2022-08-17] MEDS: VANICREAM MOISTURIZING SKIN CREAM 113GM TUBE TOP SCH (09:13)
[2022-08-17] MEDS: PANTOPRAZOLE 40MG TAB (PROTONIX) PO SCH ×2 (09:13→21:00)
[2022-08-17] MEDS: FUROSEMIDE 20 MG TAB PO SCH (09:13)
[2022-08-17] MEDS: ENOXAPARIN 40MG/0.4ML SYRINGE (J1650 PER 10MG) SC SCH (09:13)
[2022-08-17] MEDS: predniSONE 10MG TAB PO SCH (09:13)
[2022-08-17] MEDS: SENOKOT S TAB PO SCH ×2 (13:14→21:00)
[2022-08-17] MEDS: LIDOCAINE 5% (LIDODERM) PATCH TD PRN (21:01)
[2022-08-17] MEDS: ACETAMINOPHEN TAB 650MG DOSE (2X325MG) PO PRN (21:02)
[2022-08-18 06:00] VITALS: BP 119/68
[2022-08-18] MEDS: PANTOPRAZOLE 40MG TAB (PROTONIX) PO SCH ×2 (08:41→20:43)
[2022-08-18] MEDS: VANICREAM MOISTURIZING SKIN CREAM 113GM TUBE TOP SCH (08:41)
[2022-08-18] MEDS: GABAPENTIN 100 MG CAP PO SCH ×2 (08:42→20:43)
[2022-08-18] MEDS: INSULIN LISPRO (NovoLOG) PER UNIT SC SCH ×4 (08:42→20:43)
[2022-08-18] MEDS: FUROSEMIDE 20 MG TAB PO SCH (08:42)
[2022-08-18] MEDS: predniSONE 10MG TAB PO SCH (08:42)
[2022-08-18] MEDS: SENOKOT S TAB PO SCH ×2 (08:42→20:43)
[2022-08-18] MEDS: LEVEMIR (INSULIN DETEMIR) 1 UNITS/0.01ML SC SCH (08:43)
[2022-08-18] MEDS: ENOXAPARIN 40MG/0.4ML SYRINGE (J1650 PER 10MG) SC SCH (08:43)
[2022-08-18] MEDS: ACETAMINOPHEN TAB 650MG DOSE (2X325MG) PO PRN (20:44)
[2022-08-18] MEDS: LIDOCAINE 5% (LIDODERM) PATCH TD PRN (20:44)
[2022-08-19] MEDS: ACETAMINOPHEN TAB 650MG DOSE (2X325MG) PO PRN ×2 (03:23→08:27)
[2022-08-19 06:00] VITALS: BP 122/67
[2022-08-19] MEDS: PANTOPRAZOLE 40MG TAB (PROTONIX) PO SCH (08:26)
[2022-08-19] MEDS: FUROSEMIDE 20 MG TAB PO SCH (08:27)
[2022-08-19] MEDS: GABAPENTIN 100 MG CAP PO SCH (08:27)
[2022-08-19] MEDS: predniSONE 10MG TAB PO SCH (08:27)
[2022-08-19] MEDS: SENOKOT S TAB PO SCH (08:27)
[2022-08-19] MEDS: LEVEMIR (INSULIN DETEMIR) 1 UNITS/0.01ML SC SCH (08:28)
[2022-08-19] MEDS: INSULIN LISPRO (NovoLOG) PER UNIT SC SCH ×2 (08:28→12:47)
[2022-08-19] MEDS: VANICREAM MOISTURIZING SKIN CREAM 113GM TUBE TOP SCH (08:29)
[2022-08-19] MEDS: ENOXAPARIN 40MG/0.4ML SYRINGE (J1650 PER 10MG) SC SCH (08:29)
[2022-08-19 08:33] VITALS: BP 122/69
[2022-08-19] MEDS ORDERED: FUROSEMIDE 20 MG TAB PO ONE (09:00)
== END 2022-08-19 14:27 | disposition left against medical advice (07) | DRG 187 ==
LOC: M ED 14:38 → EDBD 14:38 → M ED INP 19:24 → M MSPAV 20:55
PROVIDERS: ADMIT Family Medicine; ATTEND Family Medicine
PROC: B246ZZZ Ultrasonography of Right and Left Heart (ICD-10-PCS; principal; 2022-08-05)
DX: J90 Pleural effusion, not elsewhere classified (principal); J96.11 Chronic respiratory failure with hypoxia; L97.528 Non-pressure chronic ulcer of other part of left foot with other specified severity; I10 Essential (primary) hypertension; K21.9 Gastro-esophageal reflux disease without esophagitis; M06.9 Rheumatoid arthritis, unspecified; K57.90 Diverticulosis of intestine, part unspecified, without perforation or abscess without bleeding; E11.51 Type 2 diabetes mellitus with diabetic peripheral angiopathy without gangrene; M81.0 Age-related osteoporosis without current pathological fracture; E11.649 Type 2 diabetes mellitus with hypoglycemia without coma; K59.09 Other constipation; R60.0 Localized edema; Z66 Do not resuscitate; Z74.01 Bed confinement status; E11.621 Type 2 diabetes mellitus with foot ulcer; I08.3 Combined rheumatic disorders of mitral, aortic and tricuspid valves; I27.20 Pulmonary hypertension, unspecified; R53.1 Weakness; Z79.52 Long term (current) use of systemic steroids; Z79.84 Long term (current) use of oral hypoglycemic drugs; Z79.899 Other long term (current) drug therapy; Z99.81 Dependence on supplemental oxygen; Z88.0 Allergy status to penicillin; Z88.5 Allergy status to narcotic agent; Z86.718 Personal history of other venous thrombosis and embolism; Z91.040 Latex allergy status; Z90.49 Acquired absence of other specified parts of digestive tract; Z95.828 Presence of other vascular implants and grafts

== ENCOUNTER 2022-10-28 10:22 | Inpatient (IN) | payer MEDICARE ==
[~2022-10-28] VITALS: Ht 149.9 cm; Wt 69.0 kg
[~2022-10-28 10:22] MED LIST changes: +METF10004 PO
[2022-10-28 11:40] LABS: BASO % 0.4 % (0.0-1.0); EOS # 0.1 10^3/uL (0.0-0.5); EOS % 1.1 % (0.0-3.0); HEMATOCRIT 37.2 % (36.0-47.0); HEMOGLOBIN 11.3 g/dl (12.0-15.5); LYMPH # 1.5 10^3/uL (1.5-5.0); LYMPH % 17.7 % (24.0-44.0); MEAN CORPUSCULAR HEMOGLOBIN 27.6 pg (27.0-33.0); MEAN CORPUSCULAR HGB CONC 30.4 g/dl (32.0-36.5); MONO # 0.8 10^3/uL (0.0-0.8); MONO % 9.5 % (2.0-8.0); NEUTROPHILS % 70.8 % (36.0-66.0); PLATELET COUNT, AUTOMATED 346 10^3/uL (150-450); RED BLOOD COUNT 4.09 10^6/uL (4.00-5.40); WHITE BLOOD COUNT 8.4 10^3/uL (4.0-10.0)
[2022-10-28 11:57] LABS: ERYTHROCYTE SEDIMENTATION RATE > 130 mm/hr (0-30)
[2022-10-28 12:04] LABS: BLOOD UREA NITROGEN 20 MG/DL (9-23); CALCIUM LEVEL 9.6 MG/DL (8.3-10.6); CARBON DIOXIDE LEVEL 27 MMOL/L (20-31); CHLORIDE LEVEL 101 MMOL/L (98-107); CREATININE FOR GFR 0.87 MG/DL (0.55-1.30); GLOMERULAR FILTRATION RATE > 60.0 (>32); GLUCOSE, FASTING 100 MG/DL (74-106); POTASSIUM SERUM 3.8 MMOL/L (3.5-5.1); SODIUM LEVEL 136 MMOL/L (136-145)
[2022-10-28] MEDS ORDERED: VANCOMYCIN HCL 1,000 MG in IV FLUID PLACE HOLDER 1 EA IV ONE (15:45)
[2022-10-28] MEDS ORDERED: VANCOMYCIN HCL 1,000 MG, VIAL MATE ADAPTER 1 EACH in D5W 250 ML IV SCH ×2 (16:00→18:35)
[2022-10-28] MEDS ORDERED: fentaNYL 100 MCG/2 ML INJECTION IV ONE (16:30)
[2022-10-28 17:58] LABS: RSV AMPLIFICATION NEGATIVE (NEGATIVE)
[2022-10-28] MEDS ORDERED: MOM 30ML SUSPENSION UDC PO PRN (18:30)
[2022-10-28] MEDS ORDERED: ACETAMINOPHEN TAB 650MG DOSE (2X325MG) PO PRN (18:30)
[2022-10-28] MEDS ORDERED: MORPHINE 4 MG/ML 1ML VIAL IV PRN (18:35)
[2022-10-28] MEDS ORDERED: KETOROLAC 30 MG/ML 1ML VIAL IV PRN (18:40)
[2022-10-28] MEDS ORDERED: GLUCOSE 4GM CHEW TABLET PO PRN (18:55)
[2022-10-28] MEDS ORDERED: DEXTROSE 50% 50ML SYRINGE IV PRN (18:55)
[2022-10-28] MEDS ORDERED: GLUCAGON INJ 1MG VIAL SC PRN (18:55)
[2022-10-28] MEDS ORDERED: ALPRAZolam 0.5 MG TAB PO ONE (20:00)
[2022-10-28] MEDS: INSULIN LISPRO (NovoLOG) PER UNIT SC SCH (21:00)
[2022-10-28] MEDS: PANTOPRAZOLE 40MG TAB (PROTONIX) PO SCH (21:00)
[2022-10-28] MEDS: GABAPENTIN 100 MG CAP PO SCH (21:00)
[2022-10-28] MEDS ORDERED: PROHANCE 279.3MG/ML 15ML VIAL As Ordered ONE (21:20)
[2022-10-28 22:30] VITALS: BP 128/61; TEMP 98.4; O2SAT 95
[2022-10-28] MEDS: DOCUSATE SODIUM 100MG CAPSULE PO SCH (22:30)
[2022-10-28] MEDS: KETOROLAC 30 MG/ML 1ML VIAL IV PRN (22:37)
[2022-10-28] MEDS: ACETAMINOPHEN TAB 650MG DOSE (2X325MG) PO SCH (23:36)
[2022-10-29] MEDS ORDERED: HOME MED LIST COMPLETE! XX SCH (00:50)
[2022-10-29] MEDS: VANCOMYCIN HCL 750 MG, VIAL MATE ADAPTER 1 EACH in D5W 250 ML IV SCH ×2 (02:26→14:48)
[2022-10-29] MEDS: ACETAMINOPHEN TAB 650MG DOSE (2X325MG) PO SCH ×3 (05:05→17:18)
[2022-10-29 05:10] VITALS: BP 121/61; TEMP 98.4; O2SAT 94
[2022-10-29] MEDS: KETOROLAC 30 MG/ML 1ML VIAL IV PRN ×2 (05:24→14:17)
[2022-10-29 06:36] LABS: BASO % 0.4 % (0.0-1.0); EOS # 0.2 10^3/uL (0.0-0.5); EOS % 3.3 % (0.0-3.0); HEMATOCRIT 32.4 % (36.0-47.0); HEMOGLOBIN 10.2 g/dl (12.0-15.5); LYMPH % 19.6 % (24.0-44.0); MEAN CORPUSCULAR HEMOGLOBIN 28.3 pg (27.0-33.0); MEAN CORPUSCULAR HGB CONC 31.5 g/dl (32.0-36.5); MONO # 0.5 10^3/uL (0.0-0.8); MONO % 9.4 % (2.0-8.0); NEUTROPHILS # 3.4 10^3/uL (1.5-8.5); NEUTROPHILS % 66.7 % (36.0-66.0); PLATELET COUNT, AUTOMATED 288 10^3/uL (150-450); WHITE BLOOD COUNT 5.1 10^3/uL (4.0-10.0)
[2022-10-29 06:52] LABS: INR 0.97; PROTHROMBIN TIME 13.1 SECONDS (12.5-14.5)
[2022-10-29 07:04] LABS: BLOOD UREA NITROGEN 14 MG/DL (9-23); CALCIUM LEVEL 8.9 MG/DL (8.3-10.6); CARBON DIOXIDE LEVEL 27 MMOL/L (20-31); CHLORIDE LEVEL 101 MMOL/L (98-107); GLOMERULAR FILTRATION RATE > 60.0 (>32); GLUCOSE, FASTING 109 MG/DL (74-106); POTASSIUM SERUM 3.5 MMOL/L (3.5-5.1); SODIUM LEVEL 138 MMOL/L (136-145)
[2022-10-29 07:22] LABS: PROCALCITONIN 0.99 ng/ml
[2022-10-29] MEDS: INSULIN LISPRO (NovoLOG) PER UNIT SC SCH ×4 (07:30→20:46)
[2022-10-29] MEDS: DOCUSATE SODIUM 100MG CAPSULE PO SCH ×2 (07:39→21:23)
[2022-10-29] MEDS: GABAPENTIN 100 MG CAP PO SCH ×2 (07:39→21:23)
[2022-10-29] MEDS: PANTOPRAZOLE 40MG TAB (PROTONIX) PO SCH ×2 (07:40→21:23)
[2022-10-29 14:00] VITALS: BP 130/62; TEMP 98.1; O2SAT 96
[2022-10-29 19:30] VITALS: BP 107/57; TEMP 98.8; O2SAT 96
[2022-10-29] MEDS: ONDANSETRON 4MG 2ML VIAL IV PRN (21:22)
[2022-10-30] MEDS: ACETAMINOPHEN TAB 650MG DOSE (2X325MG) PO SCH ×2 (00:14→06:10)
[2022-10-30] MEDS: KETOROLAC 30 MG/ML 1ML VIAL IV PRN ×3 (00:17→17:13)
[2022-10-30] MEDS: VANCOMYCIN HCL 750 MG, VIAL MATE ADAPTER 1 EACH in D5W 250 ML IV SCH ×2 (02:19→14:42)
[2022-10-30] MEDS: diphenhydrAMINE 25MG CAP PO PRN (03:50)
[2022-10-30 06:00] VITALS: BP 131/60; TEMP 98.1; O2SAT 96
[2022-10-30 06:11] LABS: BASO % 0.3 % (0.0-1.0); EOS # 0.2 10^3/uL (0.0-0.5); EOS % 3.7 % (0.0-3.0); HEMATOCRIT 33.3 % (36.0-47.0); HEMOGLOBIN 10.1 g/dl (12.0-15.5); LYMPH # 0.9 10^3/uL (1.5-5.0); MEAN CORPUSCULAR HEMOGLOBIN 28.1 pg (27.0-33.0); MEAN CORPUSCULAR HGB CONC 30.3 g/dl (32.0-36.5); MEAN CORPUSCULAR VOLUME 92.5 fl (80.0-96.0); MONO # 0.4 10^3/uL (0.0-0.8); NEUTROPHILS # 4.4 10^3/uL (1.5-8.5); NEUTROPHILS % 73.7 % (36.0-66.0); PLATELET COUNT, AUTOMATED 246 10^3/uL (150-450)
[2022-10-30 06:58] LABS: ERYTHROCYTE SEDIMENTATION RATE 78 mm/hr (0-30)
[2022-10-30 07:48] LABS: BLOOD UREA NITROGEN 18 MG/DL (9-23); CALCIUM LEVEL 9.1 MG/DL (8.3-10.6); CARBON DIOXIDE LEVEL 25 MMOL/L (20-31); CHLORIDE LEVEL 100 MMOL/L (98-107); CREATININE FOR GFR 0.79 MG/DL (0.55-1.30); GLOMERULAR FILTRATION RATE > 60.0 (>32); GLUCOSE, FASTING 168 MG/DL (74-106); POTASSIUM SERUM 3.7 MMOL/L (3.5-5.1); SODIUM LEVEL 134 MMOL/L (136-145)
[2022-10-30 08:00] VITALS: BP 115/57; TEMP 97.7; O2SAT 92
[2022-10-30] MEDS: INSULIN LISPRO (NovoLOG) PER UNIT SC SCH ×4 (08:18→20:52)
[2022-10-30] MEDS: DOCUSATE SODIUM 100MG CAPSULE PO SCH ×2 (08:43→21:02)
[2022-10-30] MEDS: PANTOPRAZOLE 40MG TAB (PROTONIX) PO SCH ×2 (08:43→21:02)
[2022-10-30] MEDS: GABAPENTIN 100 MG CAP PO SCH ×2 (08:43→21:02)
[2022-10-30] MEDS ORDERED: ENOXAPARIN 40MG/0.4ML SYRINGE (J1650 PER 10MG) SC ONE (09:55)
[2022-10-30] MEDS: ONDANSETRON 4MG 2ML VIAL IV PRN ×2 (10:55→19:39)
[2022-10-30] MEDS: ACETAMINOPHEN 500 MG TAB PO SCH ×2 (13:16→17:13)
[2022-10-30 14:00] VITALS: BP 125/58; TEMP 98.4; O2SAT 91
[2022-10-30 20:00] VITALS: BP 99/60; TEMP 99.9; O2SAT 90
[2022-10-30] MEDS ORDERED: NS 500 ML IV ONE ×2 (20:35→21:20)
[2022-10-30 20:53] LABS: VENOUS BASE EXCESS -2.8 (-2.0-2.0); VENOUS HCO3 21.8 MMOL/L (23.0-27.0); VENOUS O2 SATURATION 98.6 % (60.0-80.0); VENOUS PARTIAL PRESSURE CO2 37.1 mmHg (38.0-50.0); VENOUS PARTIAL PRESSURE O2 124.9 mmHg (30.0-50.0); VENOUS PH 7.387 UNITS (7.330-7.430); VENOUS STANDARD HCO3 22.2 MMOL/L; VENOUS TOTAL CO2 22.9 MMOL/L (24.0-28.0)
[2022-10-30] MEDS ORDERED: LevoFLOXacin IV 750 MG in IV 1 EA IV SCH (22:00)
[2022-10-30] MEDS ORDERED: PROCHLORPERAZINE 10MG 2ML VIAL IV PRN (22:00)
[2022-10-30] MEDS ORDERED: MAGNESIUM OXIDE 400MG TAB (MAG-OX) PO ONE (22:00)
[2022-10-30 23:45] VITALS: BP 102/62
[2022-10-31] VITALS (14 sets, daily range): BP systolic 90–116; BP diastolic 50–72; TEMP 97.7–99.6; O2SAT 90–96
[2022-10-31] MEDS: KETOROLAC 30 MG/ML 1ML VIAL IV PRN ×2 (00:16→13:34)
[2022-10-31] MEDS: ACETAMINOPHEN 500 MG TAB PO SCH ×5 (00:16→23:56)
[2022-10-31] MEDS: diphenhydrAMINE 25MG CAP PO PRN (00:19)
[2022-10-31] MEDS: VANCOMYCIN HCL 750 MG, VIAL MATE ADAPTER 1 EACH in D5W 250 ML IV SCH ×2 (02:07→13:34)
[2022-10-31 06:04] LABS: BASO % 0.2 % (0.0-1.0); EOS # 0.2 10^3/uL (0.0-0.5); EOS % 1.7 % (0.0-3.0); HEMATOCRIT 31.2 % (36.0-47.0); HEMOGLOBIN 9.6 g/dl (12.0-15.5); LYMPH # 0.7 10^3/uL (1.5-5.0); LYMPH % 7.9 % (24.0-44.0); MEAN CORPUSCULAR HEMOGLOBIN 28.5 pg (27.0-33.0); MEAN CORPUSCULAR HGB CONC 30.8 g/dl (32.0-36.5); MEAN CORPUSCULAR VOLUME 92.6 fl (80.0-96.0); MONO # 0.3 10^3/uL (0.0-0.8); NEUTROPHILS # 7.5 10^3/uL (1.5-8.5); NEUTROPHILS % 86.6 % (36.0-66.0); PLATELET COUNT, AUTOMATED 228 10^3/uL (150-450); RED BLOOD COUNT 3.37 10^6/uL (4.00-5.40); WHITE BLOOD COUNT 8.7 10^3/uL (4.0-10.0)
[2022-10-31 06:17] LABS: BLOOD UREA NITROGEN 16 MG/DL (9-23); CALCIUM LEVEL 8.1 MG/DL (8.3-10.6); CARBON DIOXIDE LEVEL 24 MMOL/L (20-31); CHLORIDE LEVEL 104 MMOL/L (98-107); CREATININE FOR GFR 0.74 MG/DL (0.55-1.30); GLOMERULAR FILTRATION RATE > 60.0 (>32); GLUCOSE, FASTING 139 MG/DL (74-106); POTASSIUM SERUM 3.6 MMOL/L (3.5-5.1); SODIUM LEVEL 136 MMOL/L (136-145)
[2022-10-31] MEDS ORDERED: SENNA 8.6 MG TAB (SENOKOT) PO PRN (07:20)
[2022-10-31] MEDS: INSULIN LISPRO (NovoLOG) PER UNIT SC SCH ×4 (07:30→21:00)
[2022-10-31] MEDS ORDERED: fentaNYL 100 MCG/2 ML INJECTION As Ordered ONE (07:41)
[2022-10-31] MEDS ORDERED: LIDOCAINE 2% 100MG/5ML SDV (FOR ANES.) As Ordered ONE (07:41)
[2022-10-31] MEDS ORDERED: propofoL 200 MG/20 ML VIAL As Ordered ONE (07:41)
[2022-10-31] MEDS ORDERED: LIDOCAINE W/EPINEPHRINE 1% 20ML VIAL As Ordered ONE (07:41)
[2022-10-31] MEDS ORDERED: ONDANSETRON 4MG 2ML VIAL As Ordered ONE (07:41)
[2022-10-31] MEDS ORDERED: LIDOCAINE W/EPINEPHRINE 1% 20ML VIAL XX ONE (07:42)
[2022-10-31] MEDS ORDERED: LR 1,000 ML IV SCH (08:40)
[2022-10-31] MEDS ORDERED: ONDANSETRON 4MG 2ML VIAL IV PRN (08:40)
[2022-10-31] MEDS ORDERED: fentaNYL 100 MCG/2 ML INJECTION IV PRN (08:40)
[2022-10-31] MEDS: MIRALAX *UNIT DOSE* 17GM PACKET PO SCH ×2 (10:07→21:00)
[2022-10-31] MEDS: METAMUCIL (PSYLLIUM) PACKET PO SCH ×2 (10:07→21:00)
[2022-10-31] MEDS: GABAPENTIN 100 MG CAP PO SCH ×2 (10:08→21:00)
[2022-10-31] MEDS: PANTOPRAZOLE 40MG TAB (PROTONIX) PO SCH ×2 (10:08→21:00)
[2022-10-31] MEDS: DOCUSATE SODIUM 100MG CAPSULE PO SCH ×2 (10:08→21:00)
[2022-10-31] MEDS ORDERED: LR 1,000 ML IV ONE (10:15)
[2022-10-31 10:26] LABS: ALBUMIN 2.2 G/DL (3.2-5.2); ALKALINE PHOSPHATASE 61 U/L (46-116); ALT/SGPT 15 U/L (7.0-40); AST/SGOT 32 U/L (<34); BILIRUBIN,DIRECT 0.2 MG/DL (<0.4); BILIRUBIN,TOTAL 0.4 MG/DL (0.3-1.2)
[2022-10-31] MEDS: ONDANSETRON 4MG 2ML VIAL IV PRN (13:34)
[2022-10-31] MEDS: MIDODRINE 5 MG TAB PO SCH (16:23)
[2022-10-31] MEDS: LevoFLOXacin 750 MG TABLET PO SCH (16:23)
[2022-11-01 02:00] VITALS: BP 94/56; TEMP 99; O2SAT 98
[2022-11-01] MEDS: LevoFLOXacin 750 MG TABLET PO SCH (05:23)
[2022-11-01] MEDS: ACETAMINOPHEN 500 MG TAB PO SCH ×4 (05:24→23:28)
[2022-11-01 06:00] VITALS: BP 100/54; TEMP 98.9; O2SAT 96
[2022-11-01 06:28] LABS: BASO % 0.3 % (0.0-1.0); EOS # 0.2 10^3/uL (0.0-0.5); EOS % 2.4 % (0.0-3.0); HEMATOCRIT 29.8 % (36.0-47.0); HEMOGLOBIN 9.1 g/dl (12.0-15.5); LYMPH # 0.6 10^3/uL (1.5-5.0); LYMPH % 8.1 % (24.0-44.0); MEAN CORPUSCULAR HEMOGLOBIN 27.9 pg (27.0-33.0); MEAN CORPUSCULAR HGB CONC 30.5 g/dl (32.0-36.5); MEAN CORPUSCULAR VOLUME 91.4 fl (80.0-96.0); MONO # 0.3 10^3/uL (0.0-0.8); MONO % 4.6 % (2.0-8.0); NEUTROPHILS # 6.2 10^3/uL (1.5-8.5); NEUTROPHILS % 83.9 % (36.0-66.0); PLATELET COUNT, AUTOMATED 204 10^3/uL (150-450); RED BLOOD COUNT 3.26 10^6/uL (4.00-5.40); WHITE BLOOD COUNT 7.4 10^3/uL (4.0-10.0)
[2022-11-01 06:54] LABS: ERYTHROCYTE SEDIMENTATION RATE 99 mm/hr (0-30)
[2022-11-01 06:59] LABS: BLOOD UREA NITROGEN 11 MG/DL (9-23); CALCIUM LEVEL 7.6 MG/DL (8.3-10.6); CARBON DIOXIDE LEVEL 27 MMOL/L (20-31); CHLORIDE LEVEL 106 MMOL/L (98-107); CREATININE FOR GFR 0.75 MG/DL (0.55-1.30); GLOMERULAR FILTRATION RATE > 60.0 (>32); GLUCOSE, FASTING 115 MG/DL (74-106); POTASSIUM SERUM 4.2 MMOL/L (3.5-5.1); SODIUM LEVEL 138 MMOL/L (136-145)
[2022-11-01] MEDS: INSULIN LISPRO (NovoLOG) PER UNIT SC SCH ×4 (07:30→20:46)
[2022-11-01] MEDS: MIRALAX *UNIT DOSE* 17GM PACKET PO SCH ×2 (08:35→20:46)
[2022-11-01] MEDS: LACTULOSE 20GM/30ML SYRUP UDC PO SCH ×2 (08:35→12:56)
[2022-11-01] MEDS: DOCUSATE SODIUM 100MG CAPSULE PO SCH ×2 (08:35→20:53)
[2022-11-01] MEDS: MIDODRINE 5 MG TAB PO SCH ×3 (08:35→15:56)
[2022-11-01] MEDS: PANTOPRAZOLE 40MG TAB (PROTONIX) PO SCH ×2 (08:35→20:53)
[2022-11-01] MEDS: METAMUCIL (PSYLLIUM) PACKET PO SCH ×2 (08:35→20:47)
[2022-11-01] MEDS: GABAPENTIN 100 MG CAP PO SCH ×2 (08:35→20:53)
[2022-11-01] MEDS ORDERED: ENOXAPARIN 40MG/0.4ML SYRINGE (J1650 PER 10MG) SC SCH (09:00)
[2022-11-01] MEDS ORDERED: ISOVUE-370 76% 100ML VIAL As Ordered ONE (09:16)
[2022-11-01 10:15] VITALS: BP 102/70; TEMP 98.4; O2SAT 92
[2022-11-01] MEDS: SANTYL OINT 30GM TOP SCH (12:57)
[2022-11-01 14:00] VITALS: BP 110/60; TEMP 99; O2SAT 95
[2022-11-01] MEDS: ONDANSETRON 4MG 2ML VIAL IV PRN (16:39)
[2022-11-01 20:15] VITALS: BP 112/62; TEMP 98; O2SAT 96
[2022-11-02] MEDS: ACETAMINOPHEN 500 MG TAB PO SCH ×3 (05:19→17:22)
[2022-11-02] MEDS: LevoFLOXacin 750 MG TABLET PO SCH (05:19)
[2022-11-02 05:25] VITALS: BP 100/58; TEMP 99; O2SAT 95
[2022-11-02 06:15] LABS: BASO % 0.3 % (0.0-1.0); EOS # 0.2 10^3/uL (0.0-0.5); EOS % 3.7 % (0.0-3.0); HEMOGLOBIN 8.9 g/dl (12.0-15.5); LYMPH # 0.9 10^3/uL (1.5-5.0); LYMPH % 15.1 % (24.0-44.0); MEAN CORPUSCULAR HEMOGLOBIN 27.8 pg (27.0-33.0); MEAN CORPUSCULAR HGB CONC 30.7 g/dl (32.0-36.5); MEAN CORPUSCULAR VOLUME 90.6 fl (80.0-96.0); MONO # 0.5 10^3/uL (0.0-0.8); MONO % 8.2 % (2.0-8.0); NEUTROPHILS # 4.5 10^3/uL (1.5-8.5); NEUTROPHILS % 72.2 % (36.0-66.0); PLATELET COUNT, AUTOMATED 237 10^3/uL (150-450); WHITE BLOOD COUNT 6.2 10^3/uL (4.0-10.0)
[2022-11-02 06:41] LABS: BLOOD UREA NITROGEN 9 MG/DL (9-23); CALCIUM LEVEL 8.1 MG/DL (8.3-10.6); CARBON DIOXIDE LEVEL 25 MMOL/L (20-31); CHLORIDE LEVEL 107 MMOL/L (98-107); CREATININE FOR GFR 0.73 MG/DL (0.55-1.30); GLOMERULAR FILTRATION RATE > 60.0 (>32); GLUCOSE, FASTING 111 MG/DL (74-106); POTASSIUM SERUM 4.3 MMOL/L (3.5-5.1); SODIUM LEVEL 140 MMOL/L (136-145)
[2022-11-02 08:14] LABS: IRON (FE) 12 UG/DL (50-170); PERCENT SATURATION 4.4 % (13.2-45.0); TOTAL IRON BINDING CAPACITY 273 UG/DL (250-425)
[2022-11-02 08:16] LABS: FERRITIN 47.2 NG/ML (7.3-270.7)
[2022-11-02 08:17] LABS: VITAMIN B12 LEVEL 596 PG/ML (211-911)
[2022-11-02] MEDS: METAMUCIL (PSYLLIUM) PACKET PO SCH ×2 (09:21→20:01)
[2022-11-02] MEDS: MIRALAX *UNIT DOSE* 17GM PACKET PO SCH ×2 (09:21→20:01)
[2022-11-02] MEDS: LACTULOSE 20GM/30ML SYRUP UDC PO SCH (09:21)
[2022-11-02] MEDS: PANTOPRAZOLE 40MG TAB (PROTONIX) PO SCH ×2 (09:22→20:02)
[2022-11-02] MEDS: SANTYL OINT 30GM TOP SCH (09:22)
[2022-11-02] MEDS: MIDODRINE 5 MG TAB PO SCH ×3 (09:22→16:28)
[2022-11-02] MEDS: INSULIN LISPRO (NovoLOG) PER UNIT SC SCH ×5 (09:22→20:01)
[2022-11-02] MEDS: GABAPENTIN 100 MG CAP PO SCH ×2 (09:22→20:01)
[2022-11-02] MEDS: DOCUSATE SODIUM 100MG CAPSULE PO SCH ×2 (09:23→20:01)
[2022-11-02] MEDS: ONDANSETRON 4MG 2ML VIAL IV PRN (09:24)
[2022-11-02 11:23] LABS: FOLATE 23.16 NG/ML (>5.4)
[2022-11-02 12:19] LABS: HEMATOCRIT 31.8 % (36.0-47.0); HEMOGLOBIN 9.4 g/dl (12.0-15.5); MEAN CORPUSCULAR HEMOGLOBIN 27.4 pg (27.0-33.0); MEAN CORPUSCULAR HGB CONC 29.6 g/dl (32.0-36.5); MEAN CORPUSCULAR VOLUME 92.7 fl (80.0-96.0); PLATELET COUNT, AUTOMATED 244 10^3/uL (150-450); RED BLOOD COUNT 3.43 10^6/uL (4.00-5.40); WHITE BLOOD COUNT 5.7 10^3/uL (4.0-10.0)
[2022-11-02] MEDS ORDERED: FERRIC CARBOXYMALTOSE INJ 750 MG, VIAL MATE ADAPTER 1 EACH in NS 250 ML IV ONE (13:00)
[2022-11-02 14:00] VITALS: BP 120/70; TEMP 98.1; O2SAT 94
[2022-11-03] MEDS: ACETAMINOPHEN 500 MG TAB PO SCH ×4 (05:32→17:26)
[2022-11-03] MEDS: LevoFLOXacin 750 MG TABLET PO SCH (05:32)
[2022-11-03 06:00] VITALS: BP 115/57; TEMP 98.4; O2SAT 98
[2022-11-03 06:08] LABS: BASO % 0.4 % (0.0-1.0); EOS # 0.2 10^3/uL (0.0-0.5); EOS % 5.2 % (0.0-3.0); HEMATOCRIT 30.5 % (36.0-47.0); HEMOGLOBIN 9.3 g/dl (12.0-15.5); LYMPH # 0.9 10^3/uL (1.5-5.0); LYMPH % 20.2 % (24.0-44.0); MEAN CORPUSCULAR HEMOGLOBIN 28.3 pg (27.0-33.0); MEAN CORPUSCULAR HGB CONC 30.5 g/dl (32.0-36.5); MEAN CORPUSCULAR VOLUME 92.7 fl (80.0-96.0); MONO # 0.5 10^3/uL (0.0-0.8); MONO % 11.1 % (2.0-8.0); NEUTROPHILS # 2.8 10^3/uL (1.5-8.5); NEUTROPHILS % 61.6 % (36.0-66.0); PLATELET COUNT, AUTOMATED 272 10^3/uL (150-450); RED BLOOD COUNT 3.29 10^6/uL (4.00-5.40); WHITE BLOOD COUNT 4.6 10^3/uL (4.0-10.0)
[2022-11-03 06:20] LABS: ERYTHROCYTE SEDIMENTATION RATE 118 mm/hr (0-30)
[2022-11-03 07:18] LABS: BLOOD UREA NITROGEN 12 MG/DL (9-23); CALCIUM LEVEL 8.1 MG/DL (8.3-10.6); CARBON DIOXIDE LEVEL 24 MMOL/L (20-31); CHLORIDE LEVEL 109 MMOL/L (98-107); CREATININE FOR GFR 0.79 MG/DL (0.55-1.30); GLOMERULAR FILTRATION RATE > 60.0 (>32); GLUCOSE, FASTING 93 MG/DL (74-106); POTASSIUM SERUM 4.2 MMOL/L (3.5-5.1); SODIUM LEVEL 141 MMOL/L (136-145)
[2022-11-03] MEDS: INSULIN LISPRO (NovoLOG) PER UNIT SC SCH ×4 (07:20→21:00)
[2022-11-03] MEDS: MIDODRINE 5 MG TAB PO SCH ×3 (08:49→16:43)
[2022-11-03] MEDS: SANTYL OINT 30GM TOP SCH (08:49)
[2022-11-03] MEDS: PANTOPRAZOLE 40MG TAB (PROTONIX) PO SCH ×2 (08:49→20:56)
[2022-11-03] MEDS: DOCUSATE SODIUM 100MG CAPSULE PO SCH ×2 (08:49→20:56)
[2022-11-03] MEDS: GABAPENTIN 100 MG CAP PO SCH ×2 (08:49→20:56)
[2022-11-03] MEDS: LACTULOSE 20GM/30ML SYRUP UDC PO SCH (08:50)
[2022-11-03] MEDS: METAMUCIL (PSYLLIUM) PACKET PO SCH ×2 (08:50→20:56)
[2022-11-03] MEDS: MIRALAX *UNIT DOSE* 17GM PACKET PO SCH ×2 (08:50→20:56)
[2022-11-03 23:48] VITALS: TEMP 98.9; O2SAT 94
[2022-11-04] MEDS: ACETAMINOPHEN 500 MG TAB PO SCH ×3 (00:25→12:00)
[2022-11-04] MEDS: LevoFLOXacin 750 MG TABLET PO SCH (05:42)
[2022-11-04] MEDS: SANTYL OINT 30GM TOP SCH (05:42)
[2022-11-04] MEDS: ONDANSETRON 4MG 2ML VIAL IV PRN (05:49)
[2022-11-04 06:00] VITALS: BP 139/85; TEMP 99; O2SAT 90
[2022-11-04] MEDS: INSULIN LISPRO (NovoLOG) PER UNIT SC SCH ×2 (07:30→12:00)
[2022-11-04 08:10] VITALS: BP 137/83
[2022-11-04] MEDS: DOCUSATE SODIUM 100MG CAPSULE PO SCH (08:11)
[2022-11-04] MEDS: GABAPENTIN 100 MG CAP PO SCH (08:11)
[2022-11-04] MEDS: PANTOPRAZOLE 40MG TAB (PROTONIX) PO SCH (08:11)
[2022-11-04] MEDS: MIDODRINE 5 MG TAB PO SCH ×2 (08:11→12:37)
[2022-11-04] MEDS: LACTULOSE 20GM/30ML SYRUP UDC PO SCH (08:14)
[2022-11-04] MEDS: MIRALAX *UNIT DOSE* 17GM PACKET PO SCH (08:14)
[2022-11-04] MEDS: METAMUCIL (PSYLLIUM) PACKET PO SCH (08:14)
[2022-11-04] MEDS ORDERED: SANT250O8 TOP (10:47)
[2022-11-04] MEDS ORDERED: MIRA3350 PO (10:47)
[2022-11-04] MEDS ORDERED: MIRA1POW3 PO (10:47)
[2022-11-04] MEDS ORDERED: LEVO1TAB40 PO (10:47)
[2022-11-04 12:37] VITALS: BP 138/80
== END 2022-11-04 14:18 | DRG 264 ==
LOC: M ED 10:22 → M ED INP 18:29 → M MSPAV 22:27
PROVIDERS: ADMIT Student in an Organized Health Care Education/Training Program; ATTEND Student in an Organized Health Care Education/Training Program
PROC: 0JBP0ZZ Excision of Left Lower Leg Subcutaneous Tissue and Fascia, Open Approach (ICD-10-PCS; principal; 2022-10-31 08:00)
DX: I83.022 Varicose veins of left lower extremity with ulcer of calf (principal); L03.115 Cellulitis of right lower limb; L03.116 Cellulitis of left lower limb; M60.062 Infective myositis, left lower leg; E87.20 Acidosis, unspecified; L97.229 Non-pressure chronic ulcer of left calf with unspecified severity; I10 Essential (primary) hypertension; I73.9 Peripheral vascular disease, unspecified; D50.9 Iron deficiency anemia, unspecified; E11.51 Type 2 diabetes mellitus with diabetic peripheral angiopathy without gangrene; M06.9 Rheumatoid arthritis, unspecified; K21.9 Gastro-esophageal reflux disease without esophagitis; E83.42 Hypomagnesemia; K59.00 Constipation, unspecified; G89.29 Other chronic pain; Z90.49 Acquired absence of other specified parts of digestive tract; Z66 Do not resuscitate; Z79.84 Long term (current) use of oral hypoglycemic drugs; Z79.899 Other long term (current) drug therapy; Z88.0 Allergy status to penicillin; Z88.5 Allergy status to narcotic agent; Z91.040 Latex allergy status; Z86.718 Personal history of other venous thrombosis and embolism; Z20.822 Contact with and (suspected) exposure to COVID-19; Z95.828 Presence of other vascular implants and grafts

== ENCOUNTER 2022-12-21 19:32 | Inpatient (IN) | payer MEDICARE ==
[~2022-12-21] VITALS: Ht 160 cm; Wt 62.9 kg
[~2022-12-21 19:32] MED LIST changes: +LEVO1TAB40 PO; +MIRA1POW3 PO; +MIRA3350 PO; +SANT250O8 TOP
[2022-12-21] MEDS ORDERED: ISOVUE-370 76% 100ML VIAL As Ordered ONE (19:58)
[2022-12-21 19:59] LABS: BASO % 0.3 % (0.0-1.0); EOS # 0.2 10^3/uL (0.0-0.5); EOS % 1.7 % (0.0-3.0); HEMATOCRIT 41.2 % (36.0-47.0); LYMPH # 1.2 10^3/uL (1.5-5.0); LYMPH % 13.3 % (24.0-44.0); MEAN CORPUSCULAR HEMOGLOBIN 30.5 pg (27.0-33.0); MEAN CORPUSCULAR HGB CONC 31.6 g/dl (32.0-36.5); MEAN CORPUSCULAR VOLUME 96.7 fl (80.0-96.0); MONO # 0.4 10^3/uL (0.0-0.8); MONO % 4.5 % (2.0-8.0); NEUTROPHILS # 7.3 10^3/uL (1.5-8.5); NEUTROPHILS % 79.8 % (36.0-66.0); PLATELET COUNT, AUTOMATED 256 10^3/uL (150-450); RED BLOOD COUNT 4.26 10^6/uL (4.00-5.40); WHITE BLOOD COUNT 9.2 10^3/uL (4.0-10.0)
[2022-12-21 20:28] LABS: LIPASE 33 U/L (12-53)
[2022-12-21 20:33] LABS: ALBUMIN 2.9 G/DL (3.2-5.2); ALKALINE PHOSPHATASE 108 U/L (46-116); ALT/SGPT 15 U/L (7.0-40); AST/SGOT 22 U/L (<34); BILIRUBIN,DIRECT 0.1 MG/DL (<0.4); BILIRUBIN,TOTAL 0.3 MG/DL (0.3-1.2); BLOOD UREA NITROGEN 14 MG/DL (9-23); CARBON DIOXIDE LEVEL 25 MMOL/L (20-31); CHLORIDE LEVEL 101 MMOL/L (98-107); CREATININE FOR GFR 0.73 MG/DL (0.55-1.30); GLOMERULAR FILTRATION RATE > 60.0 (>32); GLUCOSE, FASTING 135 MG/DL (74-106); MAGNESIUM LEVEL 1.6 MG/DL (1.8-2.4); POTASSIUM SERUM 4.4 MMOL/L (3.5-5.1); SODIUM LEVEL 138 MMOL/L (136-145); TOTAL PROTEIN 6.7 G/DL (5.7-8.2)
[2022-12-21 20:37] LABS: RSV AMPLIFICATION NEGATIVE (NEGATIVE)
[2022-12-21 20:53] LABS: APPEARANCE, URINE HAZY (CLEAR); BACTERIA, URINE AUTO 2+ (NEGATIVE); BILIRUBIN, URINE AUTO NEGATIVE (NEGATIVE); BLOOD, URINE BLOOD NEGATIVE (NEGATIVE); COLOR, URINE AMBER (YELLOW); GLUCOSE, URINE (UA) AUTO NEGATIVE (NEGATIVE); KETONE, URINE AUTO TRACE mg/dL (NEGATIVE); LEUKOCYTE ESTERASE, URINE AUTO 2+ (NEGATIVE); MUCUS, URINE LARGE (NEGATIVE); NITRITE, URINE AUTO POSITIVE (NEGATIVE); PROTEIN, URINE AUTO 1+ mg/dL (NEGATIVE); RBC, URINE AUTO 2 /HPF (0-3); SPECIFIC GRAVITY URINE AUTO 1.046 (1.002-1.035); SQUAMOUS EPITHELIAL CELL UR AU 1 /HPF (0-6); WBC, URINE AUTO 100 /HPF (0-3)
[2022-12-21] MEDS ORDERED: cefTRIAXone SOD 2 GM in D5W MINI-BAG PLUS 50 ML IV ONE (22:00)
[2022-12-21] MEDS ORDERED: MAG SULF 1GM/100ML (MAG RUN) 1 GM in IV 1 EA IV ONE (22:40)
[2022-12-22] MEDS ORDERED: UNRESOLVED CLARIFICATION ENTRY XX SCH (00:01)
[2022-12-22] MEDS ORDERED: MIRALAX *UNIT DOSE* 17GM PACKET PO PRN (00:10)
[2022-12-22] MEDS ORDERED: DEXTROSE 50% 50ML SYRINGE IV PRN (00:10)
[2022-12-22] MEDS ORDERED: GLUCOSE 4GM CHEW TABLET PO PRN (00:10)
[2022-12-22] MEDS ORDERED: GLUCAGON INJ 1MG VIAL SC PRN (00:10)
[2022-12-22] MEDS ORDERED: ACETAMINOPH W/CODEINE #3 TAB UD PO PRN (00:10)
[2022-12-22] MEDS ORDERED: NS 1,000 ML IV ONE (00:15)
[2022-12-22] MEDS ORDERED: ONDANSETRON 4MG 2ML VIAL IV PRN (00:20)
[2022-12-22] MEDS: PANTOPRAZOLE 40MG TAB (PROTONIX) PO SCH ×3 (00:35→20:42)
[2022-12-22 06:21] LABS: HEMATOCRIT 36.6 % (36.0-47.0); HEMOGLOBIN 11.6 g/dl (12.0-15.5); MEAN CORPUSCULAR HEMOGLOBIN 30.3 pg (27.0-33.0); MEAN CORPUSCULAR HGB CONC 31.7 g/dl (32.0-36.5); MEAN CORPUSCULAR VOLUME 95.6 fl (80.0-96.0); PLATELET COUNT, AUTOMATED 231 10^3/uL (150-450); RED BLOOD COUNT 3.83 10^6/uL (4.00-5.40); WHITE BLOOD COUNT 6.1 10^3/uL (4.0-10.0)
[2022-12-22 06:40] LABS: INR 1.03; PROTHROMBIN TIME 13.2 SECONDS (12.5-14.5)
[2022-12-22 06:54] LABS: BLOOD UREA NITROGEN 11 MG/DL (9-23); CALCIUM LEVEL 8.5 MG/DL (8.3-10.6); CARBON DIOXIDE LEVEL 26 MMOL/L (20-31); CHLORIDE LEVEL 104 MMOL/L (98-107); CREATININE FOR GFR 0.58 MG/DL (0.55-1.30); GLOMERULAR FILTRATION RATE > 60.0 (>32); GLUCOSE, FASTING 101 MG/DL (74-106); MAGNESIUM LEVEL 1.6 MG/DL (1.8-2.4); SODIUM LEVEL 139 MMOL/L (136-145)
[2022-12-22] MEDS ORDERED: PRED5TA PO (06:56)
[2022-12-22] MEDS ORDERED: MIRA1POW3 PO (06:56)
[2022-12-22] MEDS ORDERED: METF500T13 PO (06:56)
[2022-12-22] MEDS ORDERED: SANT250O8 TOP (06:56)
[2022-12-22] MEDS ORDERED: ALEV220T22 PO (06:56)
[2022-12-22] MEDS ORDERED: HOME MED LIST COMPLETE! XX SCH (07:00)
[2022-12-22] MEDS: INSULIN LISPRO (NovoLOG) PER UNIT SC SCH ×3 (07:08→17:30)
[2022-12-22] MEDS: ENOXAPARIN 40MG/0.4ML SYRINGE (J1650 PER 10MG) SC SCH (07:20)
[2022-12-22] MEDS: KETOROLAC 30 MG/ML 1ML VIAL IV SCH ×2 (07:20→15:43)
[2022-12-22] MEDS: GABAPENTIN 100 MG CAP PO SCH ×2 (07:21→20:42)
[2022-12-22] MEDS: SENOKOT S TAB PO SCH ×2 (07:21→20:43)
[2022-12-22] MEDS ORDERED: PANTOPRAZOLE 40MG TAB (PROTONIX) PO SCH (09:00)
[2022-12-22] MEDS ORDERED: MAG SULF 1GM/100ML (MAG RUN) 1 GM in IV 1 EA IV ONE (10:15)
[2022-12-22] MEDS: MAGNESIUM OXIDE 400MG TAB (MAG-OX) PO SCH ×2 (10:35→20:42)
[2022-12-22] MEDS: SANTYL OINT 30GM TOP SCH (10:51)
[2022-12-22] MEDS: predniSONE 5 MG TAB PO SCH (10:54)
[2022-12-22] MEDS: FOLIC ACID 1MG TAB PO SCH (10:54)
[2022-12-22] MEDS: FUROSEMIDE 20 MG TAB PO SCH (10:54)
[2022-12-22] MEDS: QUEtiapine FUMARATE 25 MG TAB PO SCH (17:56)
[2022-12-22] MEDS: MICONAZOLE 2 % POWDER (DESENEX) TOP SCH (20:44)
[2022-12-22] MEDS ORDERED: cefTRIAXone SOD 2 GM in D5W MINI-BAG PLUS 50 ML IV SCH (21:00)
[2022-12-23 06:05] VITALS: BP 120/55; TEMP 97.2; O2SAT 94
[2022-12-23 06:35] LABS: HEMATOCRIT 35.7 % (36.0-47.0); HEMOGLOBIN 11.3 g/dl (12.0-15.5); MEAN CORPUSCULAR HEMOGLOBIN 30.9 pg (27.0-33.0); MEAN CORPUSCULAR HGB CONC 31.7 g/dl (32.0-36.5); MEAN CORPUSCULAR VOLUME 97.5 fl (80.0-96.0); PLATELET COUNT, AUTOMATED 227 10^3/uL (150-450); RED BLOOD COUNT 3.66 10^6/uL (4.00-5.40); WHITE BLOOD COUNT 5.5 10^3/uL (4.0-10.0)
[2022-12-23 07:06] LABS: ALBUMIN 2.3 G/DL (3.2-5.2); ALKALINE PHOSPHATASE 77 U/L (46-116); ALT/SGPT 9 U/L (7.0-40); AST/SGOT 10 U/L (<34); BILIRUBIN,TOTAL 0.2 MG/DL (0.3-1.2); BLOOD UREA NITROGEN 12 MG/DL (9-23); CALCIUM LEVEL 8.3 MG/DL (8.3-10.6); CARBON DIOXIDE LEVEL 28 MMOL/L (20-31); CHLORIDE LEVEL 106 MMOL/L (98-107); CREATININE FOR GFR 0.79 MG/DL (0.55-1.30); GLOMERULAR FILTRATION RATE > 60.0 (>32); GLUCOSE, FASTING 93 MG/DL (74-106); POTASSIUM SERUM 4.1 MMOL/L (3.5-5.1); SODIUM LEVEL 140 MMOL/L (136-145); TOTAL PROTEIN 5.5 G/DL (5.7-8.2)
[2022-12-23] MEDS ORDERED: VANCOMYCIN HCL 1,000 MG, VIAL MATE ADAPTER 1 EACH in D5W 250 ML IV SCH (07:20)
[2022-12-23] MEDS: SENOKOT S TAB PO SCH ×2 (09:00→20:17)
[2022-12-23] MEDS: DOXYCYCLINE HYCLATE 100MG TABLET PO SCH ×2 (09:00→20:17)
[2022-12-23] MEDS: INSULIN LISPRO (NovoLOG) PER UNIT SC SCH ×3 (09:35→18:10)
[2022-12-23] MEDS: SANTYL OINT 30GM TOP SCH (09:36)
[2022-12-23] MEDS: ENOXAPARIN 40MG/0.4ML SYRINGE (J1650 PER 10MG) SC SCH (09:36)
[2022-12-23] MEDS: KETOROLAC 30 MG/ML 1ML VIAL IV SCH ×3 (09:37→14:32)
[2022-12-23] MEDS: VANCOMYCIN HCL 750 MG, VIAL MATE ADAPTER 1 EACH in D5W 250 ML IV SCH ×2 (09:38→22:23)
[2022-12-23] MEDS: predniSONE 5 MG TAB PO SCH (09:38)
[2022-12-23] MEDS: MAGNESIUM OXIDE 400MG TAB (MAG-OX) PO SCH ×2 (09:39→20:16)
[2022-12-23] MEDS: FUROSEMIDE 20 MG TAB PO SCH (09:40)
[2022-12-23] MEDS: GABAPENTIN 100 MG CAP PO SCH ×2 (09:41→20:17)
[2022-12-23] MEDS: FOLIC ACID 1MG TAB PO SCH (09:41)
[2022-12-23] MEDS: PANTOPRAZOLE 40MG TAB (PROTONIX) PO SCH ×2 (09:41→20:17)
[2022-12-23] MEDS: MICONAZOLE 2 % POWDER (DESENEX) TOP SCH ×2 (09:41→20:17)
[2022-12-23] MEDS ORDERED: VANCOMYCIN HCL 500 MG in D5W MINI-BAG PLUS 100 ML IV ONE (12:00)
[2022-12-23 13:25] VITALS: BP 106/57; TEMP 97.9; O2SAT 94
[2022-12-23] MEDS: QUEtiapine FUMARATE 25 MG TAB PO SCH (18:09)
[2022-12-23] MEDS: LACTOBACILLUS ACIDOPHILUS CAP (BACID) PO SCH (18:09)
[2022-12-23 19:30] VITALS: BP 125/74; TEMP 98.8; O2SAT 95
[2022-12-23] MEDS ORDERED: cefTRIAXone SOD 2 GM in D5W MINI-BAG PLUS 50 ML IV SCH (22:00)
[2022-12-24 06:00] VITALS: BP 142/77; TEMP 97.8; O2SAT 97
[2022-12-24 07:16] LABS: HEMATOCRIT 34.6 % (36.0-47.0); MEAN CORPUSCULAR HEMOGLOBIN 30.9 pg (27.0-33.0); MEAN CORPUSCULAR HGB CONC 31.8 g/dl (32.0-36.5); MEAN CORPUSCULAR VOLUME 97.2 fl (80.0-96.0); PLATELET COUNT, AUTOMATED 221 10^3/uL (150-450); RED BLOOD COUNT 3.56 10^6/uL (4.00-5.40); WHITE BLOOD COUNT 4.6 10^3/uL (4.0-10.0)
[2022-12-24] MEDS: INSULIN LISPRO (NovoLOG) PER UNIT SC SCH ×3 (07:30→17:30)
[2022-12-24 07:46] LABS: VANCOMYCIN LEVEL TROUGH 13.8 UG/ML (10.0-20.0)
[2022-12-24 07:47] LABS: ALBUMIN 2.3 G/DL (3.2-5.2); ALKALINE PHOSPHATASE 80 U/L (46-116); ALT/SGPT 17 U/L (7.0-40); AST/SGOT 23 U/L (<34); BILIRUBIN,TOTAL 0.2 MG/DL (0.3-1.2); BLOOD UREA NITROGEN 17 MG/DL (9-23); CALCIUM LEVEL 7.8 MG/DL (8.3-10.6); CARBON DIOXIDE LEVEL 27 MMOL/L (20-31); CHLORIDE LEVEL 105 MMOL/L (98-107); CREATININE FOR GFR 0.62 MG/DL (0.55-1.30); GLOMERULAR FILTRATION RATE > 60.0 (>32); GLUCOSE, FASTING 87 MG/DL (74-106); SODIUM LEVEL 139 MMOL/L (136-145); TOTAL PROTEIN 5.6 G/DL (5.7-8.2)
[2022-12-24] MEDS: FUROSEMIDE 20 MG TAB PO SCH (09:00)
[2022-12-24] MEDS: predniSONE 5 MG TAB PO SCH (09:00)
[2022-12-24] MEDS: VANCOMYCIN HCL 750 MG, VIAL MATE ADAPTER 1 EACH in D5W 250 ML IV SCH (10:21)
[2022-12-24] MEDS: SANTYL OINT 30GM TOP SCH (10:22)
[2022-12-24] MEDS: MICONAZOLE 2 % POWDER (DESENEX) TOP SCH ×2 (10:22→21:00)
[2022-12-24] MEDS: KETOROLAC 30 MG/ML 1ML VIAL IV SCH ×4 (10:22→23:13)
[2022-12-24] MEDS: LACTOBACILLUS ACIDOPHILUS CAP (BACID) PO SCH ×2 (10:23→18:05)
[2022-12-24] MEDS: ENOXAPARIN 40MG/0.4ML SYRINGE (J1650 PER 10MG) SC SCH (10:23)
[2022-12-24] MEDS: GABAPENTIN 100 MG CAP PO SCH ×2 (10:23→21:46)
[2022-12-24] MEDS: FOLIC ACID 1MG TAB PO SCH (10:25)
[2022-12-24] MEDS: DOXYCYCLINE HYCLATE 100MG TABLET PO SCH ×2 (10:25→21:46)
[2022-12-24] MEDS: MAGNESIUM OXIDE 400MG TAB (MAG-OX) PO SCH ×2 (10:25→21:47)
[2022-12-24] MEDS: SENOKOT S TAB PO SCH ×2 (10:26→21:46)
[2022-12-24] MEDS: PANTOPRAZOLE 40MG TAB (PROTONIX) PO SCH ×2 (10:26→21:46)
[2022-12-24 14:15] VITALS: BP 118/79; TEMP 98.8; O2SAT 95
[2022-12-24] MEDS: QUEtiapine FUMARATE 25 MG TAB PO SCH (18:05)
[2022-12-24 20:00] VITALS: BP 135/70; TEMP 98.2; O2SAT 95
[2022-12-24] MEDS: CEFDINIR 300 MG CAP (OMNICEF) PO SCH (21:46)
[2022-12-25 05:20] VITALS: BP 159/71; TEMP 98.4; O2SAT 97
[2022-12-25 06:05] LABS: HEMATOCRIT 35.6 % (36.0-47.0); HEMOGLOBIN 11.1 g/dl (12.0-15.5); MEAN CORPUSCULAR HEMOGLOBIN 30.5 pg (27.0-33.0); MEAN CORPUSCULAR HGB CONC 31.2 g/dl (32.0-36.5); MEAN CORPUSCULAR VOLUME 97.8 fl (80.0-96.0); PLATELET COUNT, AUTOMATED 220 10^3/uL (150-450); RED BLOOD COUNT 3.64 10^6/uL (4.00-5.40); WHITE BLOOD COUNT 4.7 10^3/uL (4.0-10.0)
[2022-12-25 06:14] VITALS: BP 159/73; O2SAT 95
[2022-12-25] MEDS ORDERED: NITROGLYCERIN 0.4MG SUBL TABLET SL PRN (06:15)
[2022-12-25] MEDS ORDERED: NITROGLYCERIN 0.4MG SUBL TABLET As Ordered ONE (06:17)
[2022-12-25 06:33] LABS: CK-MB VALUE MASS 1.2 NG/ML (<3.6)
[2022-12-25 06:34] LABS: ALBUMIN 2.4 G/DL (3.2-5.2); ALKALINE PHOSPHATASE 83 U/L (46-116); ALT/SGPT 17 U/L (7.0-40); AST/SGOT 19 U/L (<34); BILIRUBIN,TOTAL 0.2 MG/DL (0.3-1.2); BLOOD UREA NITROGEN 11 MG/DL (9-23); CALCIUM LEVEL 8.5 MG/DL (8.3-10.6); CARBON DIOXIDE LEVEL 26 MMOL/L (20-31); CHLORIDE LEVEL 106 MMOL/L (98-107); CREATININE FOR GFR 0.59 MG/DL (0.55-1.30); GLOMERULAR FILTRATION RATE > 60.0 (>32); GLUCOSE, FASTING 86 MG/DL (74-106); POTASSIUM SERUM 4.3 MMOL/L (3.5-5.1); SODIUM LEVEL 142 MMOL/L (136-145); TOTAL PROTEIN 5.8 G/DL (5.7-8.2)
[2022-12-25 06:38] LABS: MB/CK RELATIVE INDEX 7.05 (< OR =4)
[2022-12-25] MEDS ORDERED: ASPIRIN 81MG CHEW TABLET PO ONE (07:00)
[2022-12-25] MEDS: INSULIN LISPRO (NovoLOG) PER UNIT SC SCH ×3 (07:30→17:49)
[2022-12-25] MEDS: predniSONE 5 MG TAB PO SCH (09:00)
[2022-12-25] MEDS: LEVEMIR (INSULIN DETEMIR) 1 UNITS/0.01ML SC SCH (09:00)
[2022-12-25] MEDS: LACTOBACILLUS ACIDOPHILUS CAP (BACID) PO SCH ×2 (10:04→17:49)
[2022-12-25] MEDS: MAGNESIUM OXIDE 400MG TAB (MAG-OX) PO SCH ×2 (10:05→21:53)
[2022-12-25] MEDS: PANTOPRAZOLE 40MG TAB (PROTONIX) PO SCH ×2 (10:10→21:52)
[2022-12-25] MEDS: DOXYCYCLINE HYCLATE 100MG TABLET PO SCH ×2 (10:10→21:53)
[2022-12-25] MEDS: GABAPENTIN 100 MG CAP PO SCH ×2 (10:10→21:52)
[2022-12-25] MEDS: FUROSEMIDE 20 MG TAB PO SCH (10:10)
[2022-12-25] MEDS: SENOKOT S TAB PO SCH ×2 (10:10→21:00)
[2022-12-25] MEDS: CEFDINIR 300 MG CAP (OMNICEF) PO SCH ×2 (10:10→21:53)
[2022-12-25] MEDS: FOLIC ACID 1MG TAB PO SCH (10:10)
[2022-12-25] MEDS: ENOXAPARIN 40MG/0.4ML SYRINGE (J1650 PER 10MG) SC SCH (10:11)
[2022-12-25] MEDS: SANTYL OINT 30GM TOP SCH (10:11)
[2022-12-25] MEDS: MICONAZOLE 2 % POWDER (DESENEX) TOP SCH ×2 (10:12→21:53)
[2022-12-25] MEDS: QUEtiapine FUMARATE 25 MG TAB PO SCH (17:49)
[2022-12-26 06:10] VITALS: BP 156/80; TEMP 98.6; O2SAT 95
[2022-12-26 07:15] LABS: HEMATOCRIT 35.7 % (36.0-47.0); HEMOGLOBIN 11.2 g/dl (12.0-15.5); MEAN CORPUSCULAR HEMOGLOBIN 30.4 pg (27.0-33.0); MEAN CORPUSCULAR HGB CONC 31.4 g/dl (32.0-36.5); PLATELET COUNT, AUTOMATED 256 10^3/uL (150-450); RED BLOOD COUNT 3.68 10^6/uL (4.00-5.40); WHITE BLOOD COUNT 6.6 10^3/uL (4.0-10.0)
[2022-12-26] MEDS: INSULIN LISPRO (NovoLOG) PER UNIT SC SCH ×3 (07:30→17:46)
[2022-12-26 07:38] LABS: ALBUMIN 2.5 G/DL (3.2-5.2); ALKALINE PHOSPHATASE 85 U/L (46-116); ALT/SGPT 22 U/L (7.0-40); AST/SGOT 22 U/L (<34); BILIRUBIN,TOTAL 0.3 MG/DL (0.3-1.2); BLOOD UREA NITROGEN 10 MG/DL (9-23); CALCIUM LEVEL 8.4 MG/DL (8.3-10.6); CARBON DIOXIDE LEVEL 27 MMOL/L (20-31); CHLORIDE LEVEL 104 MMOL/L (98-107); CREATININE FOR GFR 0.59 MG/DL (0.55-1.30); GLOMERULAR FILTRATION RATE > 60.0 (>32); GLUCOSE, FASTING 81 MG/DL (74-106); SODIUM LEVEL 140 MMOL/L (136-145); TOTAL PROTEIN 5.8 G/DL (5.7-8.2)
[2022-12-26] MEDS: LEVEMIR (INSULIN DETEMIR) 1 UNITS/0.01ML SC SCH (09:00)
[2022-12-26] MEDS ORDERED: METHOTREXATE 2.5MG TAB PO SCH (09:00)
[2022-12-26] MEDS: ENOXAPARIN 40MG/0.4ML SYRINGE (J1650 PER 10MG) SC SCH (10:15)
[2022-12-26] MEDS: MAGNESIUM OXIDE 400MG TAB (MAG-OX) PO SCH ×2 (10:16→20:10)
[2022-12-26] MEDS: GABAPENTIN 100 MG CAP PO SCH ×2 (10:16→20:10)
[2022-12-26] MEDS: SENOKOT S TAB PO SCH ×2 (10:16→20:10)
[2022-12-26] MEDS: FOLIC ACID 1MG TAB PO SCH (10:17)
[2022-12-26] MEDS: FUROSEMIDE 20 MG TAB PO SCH (10:17)
[2022-12-26] MEDS: CEFDINIR 300 MG CAP (OMNICEF) PO SCH ×2 (10:17→20:10)
[2022-12-26] MEDS: PANTOPRAZOLE 40MG TAB (PROTONIX) PO SCH ×2 (10:17→20:10)
[2022-12-26] MEDS: ASPIRIN 81MG CHEW TABLET PO SCH (10:17)
[2022-12-26] MEDS: predniSONE 5 MG TAB PO SCH (10:17)
[2022-12-26] MEDS: DOXYCYCLINE HYCLATE 100MG TABLET PO SCH ×2 (10:18→20:10)
[2022-12-26] MEDS: SANTYL OINT 30GM TOP SCH (10:19)
[2022-12-26] MEDS: LACTOBACILLUS ACIDOPHILUS CAP (BACID) PO SCH ×2 (10:20→17:46)
[2022-12-26] MEDS: MICONAZOLE 2 % POWDER (DESENEX) TOP SCH ×2 (10:20→20:11)
[2022-12-26] MEDS: QUEtiapine FUMARATE 25 MG TAB PO SCH (17:46)
[2022-12-27 05:46] VITALS: BP 153/78; TEMP 97.5; O2SAT 95
[2022-12-27 06:26] LABS: HEMATOCRIT 37.3 % (36.0-47.0); HEMOGLOBIN 11.7 g/dl (12.0-15.5); MEAN CORPUSCULAR HEMOGLOBIN 30.5 pg (27.0-33.0); MEAN CORPUSCULAR HGB CONC 31.4 g/dl (32.0-36.5); MEAN CORPUSCULAR VOLUME 97.4 fl (80.0-96.0); PLATELET COUNT, AUTOMATED 265 10^3/uL (150-450); RED BLOOD COUNT 3.83 10^6/uL (4.00-5.40); WHITE BLOOD COUNT 5.6 10^3/uL (4.0-10.0)
[2022-12-27 06:47] LABS: ALBUMIN 2.5 G/DL (3.2-5.2); ALKALINE PHOSPHATASE 85 U/L (46-116); ALT/SGPT 22 U/L (7.0-40); AST/SGOT 18 U/L (<34); BILIRUBIN,TOTAL 0.4 MG/DL (0.3-1.2); BLOOD UREA NITROGEN 14 MG/DL (9-23); CALCIUM LEVEL 8.4 MG/DL (8.3-10.6); CARBON DIOXIDE LEVEL 28 MMOL/L (20-31); CHLORIDE LEVEL 104 MMOL/L (98-107); CREATININE FOR GFR 0.66 MG/DL (0.55-1.30); GLOMERULAR FILTRATION RATE > 60.0 (>32); GLUCOSE, FASTING 95 MG/DL (74-106); POTASSIUM SERUM 4.4 MMOL/L (3.5-5.1); SODIUM LEVEL 140 MMOL/L (136-145); TOTAL PROTEIN 5.8 G/DL (5.7-8.2)
[2022-12-27] MEDS: INSULIN LISPRO (NovoLOG) PER UNIT SC SCH ×4 (07:30→19:51)
[2022-12-27] MEDS: LEVEMIR (INSULIN DETEMIR) 1 UNITS/0.01ML SC SCH (09:00)
[2022-12-27] MEDS: ENOXAPARIN 40MG/0.4ML SYRINGE (J1650 PER 10MG) SC SCH (09:19)
[2022-12-27] MEDS: SENOKOT S TAB PO SCH ×2 (09:19→19:51)
[2022-12-27] MEDS: PANTOPRAZOLE 40MG TAB (PROTONIX) PO SCH ×2 (09:20→19:46)
[2022-12-27] MEDS: CEFDINIR 300 MG CAP (OMNICEF) PO SCH ×2 (09:20→19:49)
[2022-12-27] MEDS: predniSONE 5 MG TAB PO SCH (09:20)
[2022-12-27] MEDS: MAGNESIUM OXIDE 400MG TAB (MAG-OX) PO SCH ×2 (09:21→19:46)
[2022-12-27] MEDS: GABAPENTIN 100 MG CAP PO SCH ×2 (09:21→19:50)
[2022-12-27] MEDS: DOXYCYCLINE HYCLATE 100MG TABLET PO SCH ×2 (09:21→19:50)
[2022-12-27 09:22] VITALS: BP 105/63
[2022-12-27] MEDS: FOLIC ACID 1MG TAB PO SCH (09:22)
[2022-12-27] MEDS: ASPIRIN 81MG CHEW TABLET PO SCH (09:22)
[2022-12-27] MEDS: LACTOBACILLUS ACIDOPHILUS CAP (BACID) PO SCH ×2 (09:22→18:05)
[2022-12-27] MEDS: SANTYL OINT 30GM TOP SCH (09:24)
[2022-12-27] MEDS: MICONAZOLE 2 % POWDER (DESENEX) TOP SCH ×2 (09:25→19:50)
[2022-12-27] MEDS: FUROSEMIDE 20 MG TAB PO SCH (11:21)
[2022-12-27] MEDS: QUEtiapine FUMARATE 25 MG TAB PO SCH (18:05)
[2022-12-28 06:19] LABS: HEMATOCRIT 39.4 % (36.0-47.0); HEMOGLOBIN 12.2 g/dl (12.0-15.5); MEAN CORPUSCULAR HEMOGLOBIN 30.6 pg (27.0-33.0); MEAN CORPUSCULAR VOLUME 98.7 fl (80.0-96.0); PLATELET COUNT, AUTOMATED 204 10^3/uL (150-450); RED BLOOD COUNT 3.99 10^6/uL (4.00-5.40); WHITE BLOOD COUNT 6.5 10^3/uL (4.0-10.0)
[2022-12-28 06:29] VITALS: BP 132/69; TEMP 96.8; O2SAT 95
[2022-12-28 06:30] LABS: ALBUMIN 2.5 G/DL (3.2-5.2); ALKALINE PHOSPHATASE 83 U/L (46-116); ALT/SGPT 20 U/L (7.0-40); AST/SGOT 18 U/L (<34); BILIRUBIN,TOTAL 0.4 MG/DL (0.3-1.2); BLOOD UREA NITROGEN 17 MG/DL (9-23); CALCIUM LEVEL 8.6 MG/DL (8.3-10.6); CARBON DIOXIDE LEVEL 24 MMOL/L (20-31); CHLORIDE LEVEL 105 MMOL/L (98-107); GLOMERULAR FILTRATION RATE > 60.0 (>32); GLUCOSE, FASTING 99 MG/DL (74-106); POTASSIUM SERUM 4.4 MMOL/L (3.5-5.1); SODIUM LEVEL 140 MMOL/L (136-145)
[2022-12-28] MEDS: ACETAMINOPHEN TAB 650MG DOSE (2X325MG) PO PRN (08:16)
[2022-12-28] MEDS: LEVEMIR (INSULIN DETEMIR) 1 UNITS/0.01ML SC SCH (08:18)
[2022-12-28] MEDS: ENOXAPARIN 40MG/0.4ML SYRINGE (J1650 PER 10MG) SC SCH (08:19)
[2022-12-28] MEDS: LACTOBACILLUS ACIDOPHILUS CAP (BACID) PO SCH ×2 (08:20→17:20)
[2022-12-28] MEDS: predniSONE 5 MG TAB PO SCH (08:20)
[2022-12-28] MEDS: GABAPENTIN 100 MG CAP PO SCH ×2 (08:20→20:06)
[2022-12-28] MEDS: ASPIRIN 81MG CHEW TABLET PO SCH (08:21)
[2022-12-28] MEDS: FUROSEMIDE 20 MG TAB PO SCH (08:21)
[2022-12-28] MEDS: CEFDINIR 300 MG CAP (OMNICEF) PO SCH ×2 (08:21→20:07)
[2022-12-28] MEDS: MAGNESIUM OXIDE 400MG TAB (MAG-OX) PO SCH ×2 (08:22→20:07)
[2022-12-28] MEDS: PANTOPRAZOLE 40MG TAB (PROTONIX) PO SCH ×2 (08:22→20:06)
[2022-12-28] MEDS: SENOKOT S TAB PO SCH ×2 (08:22→20:06)
[2022-12-28] MEDS: FOLIC ACID 1MG TAB PO SCH (08:22)
[2022-12-28] MEDS: MICONAZOLE 2 % POWDER (DESENEX) TOP SCH ×2 (08:23→20:07)
[2022-12-28] MEDS: SANTYL OINT 30GM TOP SCH (08:23)
[2022-12-28] MEDS: INSULIN LISPRO (NovoLOG) PER UNIT SC SCH ×2 (12:02→17:20)
[2022-12-28] MEDS: QUEtiapine FUMARATE 25 MG TAB PO SCH (17:20)
[2022-12-29 05:14] VITALS: BP 131/69; TEMP 98.1; O2SAT 94
[2022-12-29] MEDS: INSULIN LISPRO (NovoLOG) PER UNIT SC SCH ×3 (07:30→17:14)
[2022-12-29] MEDS: LACTOBACILLUS ACIDOPHILUS CAP (BACID) PO SCH ×2 (08:44→17:13)
[2022-12-29] MEDS: ASPIRIN 81MG CHEW TABLET PO SCH (08:44)
[2022-12-29] MEDS: FOLIC ACID 1MG TAB PO SCH (08:45)
[2022-12-29] MEDS: MAGNESIUM OXIDE 400MG TAB (MAG-OX) PO SCH ×2 (08:45→21:28)
[2022-12-29] MEDS: FUROSEMIDE 20 MG TAB PO SCH (08:45)
[2022-12-29] MEDS: predniSONE 5 MG TAB PO SCH (08:45)
[2022-12-29] MEDS: CEFDINIR 300 MG CAP (OMNICEF) PO SCH ×2 (08:46→21:28)
[2022-12-29] MEDS: PANTOPRAZOLE 40MG TAB (PROTONIX) PO SCH ×2 (08:46→21:28)
[2022-12-29] MEDS: SENOKOT S TAB PO SCH ×2 (08:46→21:29)
[2022-12-29] MEDS: GABAPENTIN 100 MG CAP PO SCH ×2 (08:46→21:28)
[2022-12-29] MEDS: ENOXAPARIN 40MG/0.4ML SYRINGE (J1650 PER 10MG) SC SCH (08:49)
[2022-12-29] MEDS: MICONAZOLE 2 % POWDER (DESENEX) TOP SCH ×2 (08:49→21:29)
[2022-12-29] MEDS: SANTYL OINT 30GM TOP SCH (08:50)
[2022-12-29] MEDS: LEVEMIR (INSULIN DETEMIR) 1 UNITS/0.01ML SC SCH (08:52)
[2022-12-29] MEDS: QUEtiapine FUMARATE 25 MG TAB PO SCH (17:13)
[2022-12-29 19:56] VITALS: BP 101/61; TEMP 96.6; O2SAT 94
[2022-12-30] MEDS: ACETAMINOPHEN TAB 650MG DOSE (2X325MG) PO PRN (02:50)
[2022-12-30 06:31] VITALS: BP 108/67; TEMP 97.9; O2SAT 95
[2022-12-30] MEDS: INSULIN LISPRO (NovoLOG) PER UNIT SC SCH ×2 (07:30→12:00)
[2022-12-30] MEDS: PANTOPRAZOLE 40MG TAB (PROTONIX) PO SCH (09:00)
[2022-12-30] MEDS: SANTYL OINT 30GM TOP SCH (09:00)
[2022-12-30] MEDS: SENOKOT S TAB PO SCH (09:00)
[2022-12-30] MEDS: CEFDINIR 300 MG CAP (OMNICEF) PO SCH (09:00)
[2022-12-30] MEDS: FUROSEMIDE 20 MG TAB PO SCH (09:00)
[2022-12-30] MEDS: predniSONE 5 MG TAB PO SCH (09:00)
[2022-12-30] MEDS: LEVEMIR (INSULIN DETEMIR) 1 UNITS/0.01ML SC SCH (09:00)
[2022-12-30] MEDS: FOLIC ACID 1MG TAB PO SCH (09:00)
[2022-12-30] MEDS: ASPIRIN 81MG CHEW TABLET PO SCH (09:56)
[2022-12-30] MEDS: GABAPENTIN 100 MG CAP PO SCH (09:56)
[2022-12-30] MEDS: LACTOBACILLUS ACIDOPHILUS CAP (BACID) PO SCH (09:56)
[2022-12-30] MEDS: MAGNESIUM OXIDE 400MG TAB (MAG-OX) PO SCH (09:56)
[2022-12-30] MEDS: MICONAZOLE 2 % POWDER (DESENEX) TOP SCH (10:05)
[2022-12-30] MEDS: ENOXAPARIN 40MG/0.4ML SYRINGE (J1650 PER 10MG) SC SCH (10:06)
[2022-12-30 14:00] VITALS: BP 116/72; TEMP 97.5; O2SAT 97
[2022-12-30] MEDS ORDERED: SENN-52 PO (15:17)
[2022-12-30] MEDS ORDERED: QUET1TAB17 PO (15:17)
== END 2022-12-30 15:55 | disposition home health service (06) | DRG 689 ==
LOC: M ED 19:32 → EDBD 19:32 → M ED INP 23:32 → ENRESERV 12-22 16:25 → M MS5PR 12-22 17:35
PROVIDERS: ADMIT Internal Medicine Nephrology; ATTEND Internal Medicine Nephrology
DX: N39.0 Urinary tract infection, site not specified (principal); G93.41 Metabolic encephalopathy; J18.9 Pneumonia, unspecified organism; L97.318 Non-pressure chronic ulcer of right ankle with other specified severity; L97.928 Non-pressure chronic ulcer of unspecified part of left lower leg with other specified severity; J96.11 Chronic respiratory failure with hypoxia; M06.9 Rheumatoid arthritis, unspecified; I35.0 Nonrheumatic aortic (valve) stenosis; I27.20 Pulmonary hypertension, unspecified; F03.90 Unspecified dementia, unspecified severity, without behavioral disturbance, psychotic disturbance, mood disturbance, and anxiety; M19.90 Unspecified osteoarthritis, unspecified site; M81.0 Age-related osteoporosis without current pathological fracture; G89.29 Other chronic pain; D50.9 Iron deficiency anemia, unspecified; K21.9 Gastro-esophageal reflux disease without esophagitis; I87.2 Venous insufficiency (chronic) (peripheral); R07.89 Other chest pain; Z66 Do not resuscitate; I08.3 Combined rheumatic disorders of mitral, aortic and tricuspid valves; I71.43 Infrarenal abdominal aortic aneurysm, without rupture; K76.0 Fatty (change of) liver, not elsewhere classified; B96.20 Unspecified Escherichia coli [E. coli] as the cause of diseases classified elsewhere; K57.90 Diverticulosis of intestine, part unspecified, without perforation or abscess without bleeding; E11.51 Type 2 diabetes mellitus with diabetic peripheral angiopathy without gangrene; E83.42 Hypomagnesemia; E11.622 Type 2 diabetes mellitus with other skin ulcer; R32 Unspecified urinary incontinence; I10 Essential (primary) hypertension; Z79.899 Other long term (current) drug therapy; Z99.81 Dependence on supplemental oxygen; Z88.0 Allergy status to penicillin; Z79.84 Long term (current) use of oral hypoglycemic drugs; Z88.5 Allergy status to narcotic agent; K59.09 Other constipation; Z95.828 Presence of other vascular implants and grafts; Z86.718 Personal history of other venous thrombosis and embolism; Z91.040 Latex allergy status

== ENCOUNTER 2023-07-11 20:47 | Inpatient (IN) | payer MEDICARE ==
[~2023-07-11] VITALS: Ht 162.6 cm; Wt 70.9 kg
[~2023-07-11 20:47] MED LIST changes: +ALEV220T22 PO; -MIRA1POW3 PO; +MIRA33506 PO; +QUET1TAB17 PO; +SENN-52 PO
[2023-07-11] MEDS: INSULIN LISPRO (NovoLOG) PER UNIT SC SCH (21:00)
[2023-07-11] MEDS: LIDOCAINE 2% 5ML JELLY UROJET TOP ONE (21:35)
[2023-07-11 21:46] LABS: BASO % 0.1 % (0.0-1.0); HEMATOCRIT 40.5 % (36.0-47.0); HEMOGLOBIN 13.2 g/dl (12.0-15.5); LYMPH # 0.6 10^3/uL (1.5-5.0); LYMPH % 7.6 % (24.0-44.0); MEAN CORPUSCULAR HEMOGLOBIN 32.3 pg (27.0-33.0); MEAN CORPUSCULAR HGB CONC 32.6 g/dl (32.0-36.5); MONO # 0.5 10^3/uL (0.0-0.8); MONO % 6.4 % (2.0-8.0); NEUTROPHILS # 7.1 10^3/uL (1.5-8.5); NEUTROPHILS % 84.9 % (36.0-66.0); PLATELET COUNT, AUTOMATED 180 10^3/uL (150-450); RED BLOOD COUNT 4.09 10^6/uL (4.00-5.40); WHITE BLOOD COUNT 8.4 10^3/uL (4.0-10.0)
[2023-07-11 22:07] LABS: BLOOD UREA NITROGEN 20 MG/DL (9-23); CALCIUM LEVEL 7.7 MG/DL (8.3-10.6); CARBON DIOXIDE LEVEL 22 MMOL/L (20-31); CHLORIDE LEVEL 105 MMOL/L (98-107); CK-MB VALUE MASS 2.5 NG/ML (<3.6); GLOMERULAR FILTRATION RATE > 60.0 (>32); GLUCOSE, FASTING 271 MG/DL (74-106); POTASSIUM SERUM 4.8 MMOL/L (3.5-5.1); SODIUM LEVEL 137 MMOL/L (136-145)
[2023-07-11] MEDS: NS 500 ML IV ONE (22:07)
[2023-07-11 22:09] LABS: THYROID STIMULATING HORMONE 0.724 uIU/ML (0.55-4.78)
[2023-07-11 22:10] LABS: CPK CREATINE PHOSPHOKINASE 37 U/L (34-145); MB/CK RELATIVE INDEX 6.75 (< OR =4)
[2023-07-11 22:25] LABS: VENOUS BASE EXCESS -4.4 (-2.0-2.0); VENOUS HCO3 21.6 MMOL/L (23.0-27.0); VENOUS O2 SATURATION 66.4 % (60.0-80.0); VENOUS PARTIAL PRESSURE CO2 42.8 mmHg (38.0-50.0); VENOUS PARTIAL PRESSURE O2 37.1 mmHg (30.0-50.0); VENOUS STANDARD HCO3 20.1 MMOL/L; VENOUS TOTAL CO2 22.9 MMOL/L (24.0-28.0)
[2023-07-11 22:29] LABS: RSV AMPLIFICATION NEGATIVE (NEGATIVE)
[2023-07-11 22:57] LABS: AMPHETAMINES LEVEL URINE NEGATIVE (NEGATIVE); BARBITURATES URINE NEGATIVE (NEGATIVE); BENZODIAZEPINES URINE NEGATIVE (NEGATIVE)
[2023-07-11 22:58] LABS: CANNABINOIDS URINE NEGATIVE (NEGATIVE); COCAINE METABOLITE URINE NEGATIVE (NEGATIVE); METHADONE URINE NEGATIVE (NEGATIVE); OPIATES URINE NEGATIVE (NEGATIVE); PHENCYCLIDINE URINE NEGATIVE (NEGATIVE)
[2023-07-11] MEDS: cefTRIAXone SOD 1 GM in D5W MINI-BAG PLUS 50 ML IV ONE (23:08)
[2023-07-11] MEDS: NS 1,000 ML IV ONE (23:08)
[2023-07-11 23:09] LABS: ALBUMIN 2.6 G/DL (3.2-5.2); ALKALINE PHOSPHATASE 83 U/L (46-116); ALT/SGPT 26 U/L (7.0-40); AST/SGOT 20 U/L (<34); BILIRUBIN,DIRECT 0.2 MG/DL (<0.4); BILIRUBIN,TOTAL 0.6 MG/DL (0.3-1.2); TOTAL PROTEIN 5.8 G/DL (5.7-8.2)
[2023-07-12] VITALS (7 sets, daily range): BP systolic 127–156; BP diastolic 65–86; TEMP 97.6–102; O2SAT 91–100
[2023-07-12] MEDS: MORPHINE 2 MG/ML 1ML VIAL IV ONE (00:21)
[2023-07-12] MEDS ORDERED: GLUCAGON INJ 1MG VIAL SC PRN (01:00)
[2023-07-12] MEDS ORDERED: DEXTROSE 50% 50ML SYRINGE IV PRN (01:00)
[2023-07-12] MEDS ORDERED: GLUCOSE 4GM CHEW TABLET PO PRN (01:00)
[2023-07-12] MEDS: ACETAMINOPHEN TAB 650MG DOSE (2X325MG) PO PRN (01:41)
[2023-07-12] MEDS: NS 1,000 ML IV SCH (01:42)
[2023-07-12 03:10] LABS: MB/CK RELATIVE INDEX 8.1 (< OR =4)
[2023-07-12] MEDS: MORPHINE 2 MG/ML 1ML VIAL IV PRN (04:06)
[2023-07-12] MEDS ORDERED: IBUP-1730 PO (06:48)
[2023-07-12] MEDS ORDERED: OYST500T92 PO (06:48)
[2023-07-12] MEDS ORDERED: SENN-23 PO (06:48)
[2023-07-12] MEDS ORDERED: HOME MED LIST COMPLETE! XX SCH (06:50)
[2023-07-12] MEDS: INSULIN LISPRO (NovoLOG) PER UNIT SC SCH (08:07)
[2023-07-12] MEDS: cefTRIAXone SOD 1 GM in D5W MINI-BAG PLUS 50 ML IV SCH (08:07)
[2023-07-12] MEDS: ENOXAPARIN 40MG/0.4ML SYRINGE (J1650 PER 10MG) SC SCH (08:07)
[2023-07-12] MEDS: DOCUSATE SODIUM 100MG CAPSULE PO SCH (08:07)
[2023-07-12] MEDS: LIDOCAINE 5% (LIDODERM) PATCH TD SCH (08:08)
[2023-07-12 08:39] LABS: BASO % 0.2 % (0.0-1.0); EOS % 0.5 % (0.0-3.0); HEMATOCRIT 36.2 % (36.0-47.0); HEMOGLOBIN 11.9 g/dl (12.0-15.5); LYMPH # 0.7 10^3/uL (1.5-5.0); LYMPH % 7.4 % (24.0-44.0); MEAN CORPUSCULAR HEMOGLOBIN 32.6 pg (27.0-33.0); MEAN CORPUSCULAR HGB CONC 32.9 g/dl (32.0-36.5); MEAN CORPUSCULAR VOLUME 99.2 fl (80.0-96.0); MONO # 0.3 10^3/uL (0.0-0.8); MONO % 3.7 % (2.0-8.0); NEUTROPHILS # 7.7 10^3/uL (1.5-8.5); NEUTROPHILS % 87.5 % (36.0-66.0); PLATELET COUNT, AUTOMATED 164 10^3/uL (150-450); RED BLOOD COUNT 3.65 10^6/uL (4.00-5.40); WHITE BLOOD COUNT 8.8 10^3/uL (4.0-10.0)
[2023-07-12 09:11] LABS: PROCALCITONIN 0.41 ng/ml
[2023-07-12 09:12] LABS: BLOOD UREA NITROGEN 13 MG/DL (9-23); CALCIUM LEVEL 7.2 MG/DL (8.3-10.6); CARBON DIOXIDE LEVEL 24 MMOL/L (20-31); CHLORIDE LEVEL 109 MMOL/L (98-107); CREATININE FOR GFR 0.57 MG/DL (0.55-1.30); GLOMERULAR FILTRATION RATE > 60.0 (>32); GLUCOSE, FASTING 171 MG/DL (74-106); POTASSIUM SERUM 4.5 MMOL/L (3.5-5.1); SODIUM LEVEL 139 MMOL/L (136-145)
[2023-07-12] MEDS: PANTOPRAZOLE 40MG TAB (PROTONIX) PO SCH (11:43)
[2023-07-12] MEDS: predniSONE 5 MG TAB PO SCH (11:43)
[2023-07-12] MEDS ORDERED: VANCOMYCIN HCL 1,000 MG, VIAL MATE ADAPTER 1 EACH in D5W 250 ML IV ONE (14:15)
[2023-07-12] MEDS: LR 1,000 ML IV ONE (14:17)
[2023-07-12] MEDS ORDERED: ISOVUE-370 76% 100ML VIAL As Ordered ONE (14:37)
[2023-07-12] MEDS: HYDROMORPHONE HCL 0.5 MG/ 0.5 ML SYRINGE IV PRN (15:21)
[2023-07-12] MEDS: CEFEPIME HCL 2 GM in D5W MINI-BAG PLUS 50 ML IV SCH (15:27)
[2023-07-12] MEDS: VANCOMYCIN HCL 750 MG, VIAL MATE ADAPTER 1 EACH in D5W 250 ML IV ONE (16:18)
[2023-07-12] MEDS: AZITHROMYCIN 250MG TABLET PO SCH (16:45)
[2023-07-12] MEDS: VANCOMYCIN HCL 500 MG in D5W MINI-BAG PLUS 100 ML IV ONE (17:17)
[2023-07-12] MEDS: GABAPENTIN 100 MG CAP PO SCH (21:43)
[2023-07-13] VITALS (10 sets, daily range): BP systolic 129–148; BP diastolic 60–89; TEMP 97.8–99.5; O2SAT 83–98
[2023-07-13] MEDS: VANCOMYCIN HCL 750 MG, VIAL MATE ADAPTER 1 EACH in D5W 250 ML IV SCH (01:21)
[2023-07-13 05:47] LABS: BASO % 0.3 % (0.0-1.0); EOS # 0.1 10^3/uL (0.0-0.5); EOS % 0.6 % (0.0-3.0); HEMATOCRIT 35.7 % (36.0-47.0); HEMOGLOBIN 11.7 g/dl (12.0-15.5); LYMPH % 9.9 % (24.0-44.0); MEAN CORPUSCULAR HEMOGLOBIN 32.7 pg (27.0-33.0); MEAN CORPUSCULAR HGB CONC 32.8 g/dl (32.0-36.5); MEAN CORPUSCULAR VOLUME 99.7 fl (80.0-96.0); MONO # 0.7 10^3/uL (0.0-0.8); NEUTROPHILS # 7.9 10^3/uL (1.5-8.5); NEUTROPHILS % 81.7 % (36.0-66.0); PLATELET COUNT, AUTOMATED 153 10^3/uL (150-450); RED BLOOD COUNT 3.58 10^6/uL (4.00-5.40); WHITE BLOOD COUNT 9.6 10^3/uL (4.0-10.0)
[2023-07-13 06:09] LABS: BLOOD UREA NITROGEN 8 MG/DL (9-23); CALCIUM LEVEL 7.2 MG/DL (8.3-10.6); CARBON DIOXIDE LEVEL 24 MMOL/L (20-31); CHLORIDE LEVEL 105 MMOL/L (98-107); CREATININE FOR GFR 0.72 MG/DL (0.55-1.30); GLOMERULAR FILTRATION RATE > 60.0 (>32); GLUCOSE, FASTING 119 MG/DL (74-106); POTASSIUM SERUM 4.7 MMOL/L (3.5-5.1); SODIUM LEVEL 136 MMOL/L (136-145)
[2023-07-14] VITALS (13 sets, daily range): BP systolic 111–133; BP diastolic 58–76; TEMP 98.2–99.9; O2SAT 91–97
[2023-07-14 07:56] LABS: BASO % 0.2 % (0.0-1.0); EOS # 0.1 10^3/uL (0.0-0.5); EOS % 0.8 % (0.0-3.0); HEMATOCRIT 31.8 % (36.0-47.0); HEMOGLOBIN 10.4 g/dl (12.0-15.5); LYMPH # 0.7 10^3/uL (1.5-5.0); MEAN CORPUSCULAR HEMOGLOBIN 32.4 pg (27.0-33.0); MEAN CORPUSCULAR HGB CONC 32.7 g/dl (32.0-36.5); MEAN CORPUSCULAR VOLUME 99.1 fl (80.0-96.0); MONO # 0.5 10^3/uL (0.0-0.8); MONO % 5.4 % (2.0-8.0); NEUTROPHILS # 7.3 10^3/uL (1.5-8.5); NEUTROPHILS % 84.9 % (36.0-66.0); PLATELET COUNT, AUTOMATED 163 10^3/uL (150-450); RED BLOOD COUNT 3.21 10^6/uL (4.00-5.40); WHITE BLOOD COUNT 8.6 10^3/uL (4.0-10.0)
[2023-07-14 08:30] LABS: BLOOD UREA NITROGEN 10 MG/DL (9-23); CALCIUM LEVEL 7.6 MG/DL (8.3-10.6); CARBON DIOXIDE LEVEL 21 MMOL/L (20-31); CHLORIDE LEVEL 106 MMOL/L (98-107); CREATININE FOR GFR 0.72 MG/DL (0.55-1.30); GLOMERULAR FILTRATION RATE > 60.0 (>32); GLUCOSE, FASTING 119 MG/DL (74-106); POTASSIUM SERUM 3.9 MMOL/L (3.5-5.1); SODIUM LEVEL 135 MMOL/L (136-145)
[2023-07-14] MEDS: HYDROMORPHONE HCL 0.5 MG/ 0.5 ML SYRINGE IV PRN (09:00)
[2023-07-15 05:41] VITALS: BP 137/98; TEMP 98.4; O2SAT 94
[2023-07-15] MEDS ORDERED: NORCO, ANEXSIA 5/325MG TABLET (HYDROcodone/ACETAMINOPHEN) PO PRN (08:55)
[2023-07-15] MEDS: LevoFLOXacin 750 MG TABLET PO SCH (10:05)
[2023-07-15] MEDS: GABAPENTIN 100 MG CAP PO SCH (10:44)
[2023-07-15] MEDS: KETOROLAC 30 MG/ML 1ML VIAL IV ONE (11:09)
[2023-07-15] MEDS: HYDROMORPHONE HCL 0.5 MG/ 0.5 ML SYRINGE IV PRN (13:10)
[2023-07-15 14:00] VITALS: BP 98/50; TEMP 98.4; O2SAT 93
[2023-07-15 17:27] VITALS: BP 109/63
[2023-07-15 20:14] VITALS: BP 130/74; TEMP 97.2; O2SAT 95
[2023-07-15] MEDS: NORCO, ANEXSIA 5/325MG TABLET (HYDROcodone/ACETAMINOPHEN) PO PRN (23:34)
[2023-07-16 04:51] VITALS: BP 129/80; TEMP 98.1; O2SAT 96
[2023-07-16 06:49] LABS: BASO % 0.3 % (0.0-1.0); EOS # 0.1 10^3/uL (0.0-0.5); EOS % 1.9 % (0.0-3.0); HEMATOCRIT 32.3 % (36.0-47.0); HEMOGLOBIN 10.3 g/dl (12.0-15.5); LYMPH # 0.9 10^3/uL (1.5-5.0); LYMPH % 15.3 % (24.0-44.0); MEAN CORPUSCULAR HEMOGLOBIN 31.5 pg (27.0-33.0); MEAN CORPUSCULAR HGB CONC 31.9 g/dl (32.0-36.5); MEAN CORPUSCULAR VOLUME 98.8 fl (80.0-96.0); MONO # 0.5 10^3/uL (0.0-0.8); MONO % 8.4 % (2.0-8.0); NEUTROPHILS # 4.2 10^3/uL (1.5-8.5); NEUTROPHILS % 73.2 % (36.0-66.0); PLATELET COUNT, AUTOMATED 183 10^3/uL (150-450); RED BLOOD COUNT 3.27 10^6/uL (4.00-5.40); WHITE BLOOD COUNT 5.7 10^3/uL (4.0-10.0)
[2023-07-16 07:16] LABS: BLOOD UREA NITROGEN 22 MG/DL (9-23); CALCIUM LEVEL 7.8 MG/DL (8.3-10.6); CARBON DIOXIDE LEVEL 27 MMOL/L (20-31); CHLORIDE LEVEL 108 MMOL/L (98-107); CREATININE FOR GFR 0.78 MG/DL (0.55-1.30); GLOMERULAR FILTRATION RATE > 60.0 (>32); GLUCOSE, FASTING 94 MG/DL (74-106); POTASSIUM SERUM 4.1 MMOL/L (3.5-5.1); SODIUM LEVEL 140 MMOL/L (136-145)
[2023-07-16 14:00] VITALS: BP 97/58; TEMP 97.7; O2SAT 89
[2023-07-16] MEDS: NORCO, ANEXSIA 5/325MG TABLET (HYDROcodone/ACETAMINOPHEN) PO PRN (14:19)
[2023-07-16 20:13] VITALS: BP 112/58; TEMP 97.9; O2SAT 96
[2023-07-17 04:15] VITALS: BP 124/83; TEMP 98.2; O2SAT 95
[2023-07-17] MEDS ORDERED: METHOTREXATE 2.5MG TAB PO SCH (09:00)
[2023-07-17 14:00] VITALS: BP 135/78; TEMP 98.6; O2SAT 95
[2023-07-17 20:58] VITALS: BP 121/67; TEMP 98.8; O2SAT 95
[2023-07-18 06:00] VITALS: BP 118/80; TEMP 99.3; O2SAT 95
[2023-07-18] MEDS ORDERED: LIDO1PAD TOP (13:15)
[2023-07-18] MEDS ORDERED: GABA-1171 PO (13:15)
[2023-07-18] MEDS ORDERED: HYDR-3715 PO (13:15)
[2023-07-18 14:00] VITALS: BP 100/64; TEMP 97.2; O2SAT 94
[2023-07-24] MEDS ORDERED: METHOTREXATE 2.5MG TAB PO SCH (09:00)
== END 2023-07-18 14:52 | DRG 562 ==
LOC: M ED 20:47 → M ED INP 23:50 → M MS5PR 07-12 01:15 → M PCU 07-12 15:00 → M MSPAV 07-14 18:20
PROVIDERS: ADMIT Internal Medicine; ATTEND Internal Medicine
DX: S42.022A Displaced fracture of shaft of left clavicle, initial encounter for closed fracture (principal); A41.9 Sepsis, unspecified organism; J18.9 Pneumonia, unspecified organism; N39.0 Urinary tract infection, site not specified; E87.20 Acidosis, unspecified; J96.10 Chronic respiratory failure, unspecified whether with hypoxia or hypercapnia; L97.318 Non-pressure chronic ulcer of right ankle with other specified severity; L97.928 Non-pressure chronic ulcer of unspecified part of left lower leg with other specified severity; I35.0 Nonrheumatic aortic (valve) stenosis; I87.2 Venous insufficiency (chronic) (peripheral); E11.65 Type 2 diabetes mellitus with hyperglycemia; M06.9 Rheumatoid arthritis, unspecified; F03.90 Unspecified dementia, unspecified severity, without behavioral disturbance, psychotic disturbance, mood disturbance, and anxiety; G47.33 Obstructive sleep apnea (adult) (pediatric); K21.9 Gastro-esophageal reflux disease without esophagitis; W18.30XA Fall on same level, unspecified, initial encounter; Y92.009 Unspecified place in unspecified non-institutional (private) residence as the place of occurrence of the external cause; Y93.9 Activity, unspecified; Y99.8 Other external cause status; R53.81 Other malaise; E11.622 Type 2 diabetes mellitus with other skin ulcer; N30.90 Cystitis, unspecified without hematuria; I83.011 Varicose veins of right lower extremity with ulcer of thigh; I83.022 Varicose veins of left lower extremity with ulcer of calf; M85.89 Other specified disorders of bone density and structure, multiple sites; M47.812 Spondylosis without myelopathy or radiculopathy, cervical region; Z88.0 Allergy status to penicillin; Z99.81 Dependence on supplemental oxygen; Z88.5 Allergy status to narcotic agent; Z91.040 Latex allergy status; Z79.84 Long term (current) use of oral hypoglycemic drugs; Z79.52 Long term (current) use of systemic steroids; Z79.899 Other long term (current) drug therapy

== ENCOUNTER → 2023-07-27 | Outpatient (CLI) | payer MEDICARE ==
[~2023-07-27] MED LIST changes: +HYDR-3715 PO; +IBUP-1730 PO; +LIDO1PAD TOP; +OYST500T92 PO; +SENN-23 PO
== END ==
LOC: M SOG 07:57
PROVIDERS: ATTEND Physician Assistant
DX: M25.512 Pain in left shoulder (principal)

== ENCOUNTER 2024-04-05 10:49 | Emergency (ER) | payer MEDICARE ==
[~2024-04-05] VITALS: Ht 160 cm; Wt 65.2 kg
[2024-04-05 11:42] LABS: BASO % 0.3 % (0.0-1.0); EOS % 0.2 % (0.0-3.0); HEMATOCRIT 42.8 % (36.0-47.0); HEMOGLOBIN 14.1 g/dl (12.0-15.5); LYMPH # 0.8 10^3/uL (1.5-5.0); LYMPH % 6.3 % (24.0-44.0); MEAN CORPUSCULAR HEMOGLOBIN 35.2 pg (27.0-33.0); MEAN CORPUSCULAR HGB CONC 32.9 g/dl (32.0-36.5); MEAN CORPUSCULAR VOLUME 106.7 fl (80.0-96.0); MONO # 0.6 10^3/uL (0.0-0.8); MONO % 4.6 % (2.0-8.0); NEUTROPHILS # 10.9 10^3/uL (1.5-8.5); NEUTROPHILS % 87.4 % (36.0-66.0); PLATELET COUNT, AUTOMATED 190 10^3/uL (150-450); RED BLOOD COUNT 4.01 10^6/uL (4.00-5.40); WHITE BLOOD COUNT 12.5 10^3/uL (4.0-10.0)
[2024-04-05 11:55] LABS: ERYTHROCYTE SEDIMENTATION RATE 30 mm/hr (0-30)
[2024-04-05 12:11] LABS: BLOOD UREA NITROGEN 22 MG/DL (9-23); C REACTIVE PROTEIN QUANTITATIV 1.99 MG/DL (<1.0); CALCIUM LEVEL 9.3 MG/DL (8.3-10.6); CARBON DIOXIDE LEVEL 27 MMOL/L (20-31); CHLORIDE LEVEL 100 MMOL/L (98-107); CREATININE FOR GFR 0.58 MG/DL (0.55-1.30); GLOMERULAR FILTRATION RATE > 60.0 (>32); GLUCOSE, FASTING 198 MG/DL (74-106); POTASSIUM SERUM 4.6 MMOL/L (3.5-5.1); SODIUM LEVEL 139 MMOL/L (136-145)
[2024-04-05] MEDS ORDERED: CEPH500C PO (12:25)
[2024-04-05 12:49] VITALS: O2SAT 93
[2024-04-05 13:00] VITALS: BP 146/68
[2024-04-05 13:08] VITALS: TEMP 98
== END 2024-04-05 14:00 | disposition home or self-care (01) ==
LOC: M ED 10:49 → EDBD 10:49 → M ED 14:00
DX: L60.8 Other nail disorders (principal); E11.9 Type 2 diabetes mellitus without complications; M06.9 Rheumatoid arthritis, unspecified; Z88.0 Allergy status to penicillin; Z88.5 Allergy status to narcotic agent; Z91.040 Latex allergy status; Z79.1 Long term (current) use of non-steroidal anti-inflammatories (NSAID); Z79.2 Long term (current) use of antibiotics; Z79.84 Long term (current) use of oral hypoglycemic drugs; Z79.52 Long term (current) use of systemic steroids; Z79.899 Other long term (current) drug therapy

== ENCOUNTER 2024-06-25 20:36 | Inpatient (IN) | payer MEDICARE ==
[~2024-06-25] VITALS: Ht 157.5 cm; Wt 60.8 kg
[~2024-06-25 20:36] MED LIST changes: +CEPH500C PO
[2024-06-25] MEDS: NS 500 ML IV ONE (21:30)
[2024-06-25] MEDS: ACETAMINOPHEN *IV* 1,000 MG in IV 1 EA IV ONE (21:38)
[2024-06-25] MEDS: fentaNYL 100 MCG/2 ML INJECTION IV ONE (22:05)
[2024-06-25 22:18] LABS: KETONE, URINE AUTO RFX TRACE mg/dL (NEGATIVE); MUCUS, URINE RFX SMALL (NEGATIVE); RBC, URINE AUTO RFX 0 /HPF (0-3); SQUAM EPITHELIAL CELL UR AURFX 17 /HPF (0-6)
[2024-06-25 22:28] LABS: LEUKOCYTE ESTERASE UR AUTO RFX 2+ (NEGATIVE); NITRITE, URINE AUTO RFX POSITIVE (NEGATIVE); WBC, URINE AUTO RFX 39 /HPF (0-3)
[2024-06-25 22:28] LABS: BASO % 0.2 % (0.0-1.0); EOS # 0.2 10^3/uL (0.0-0.5); EOS % 0.8 % (0.0-3.0); HEMATOCRIT 45.4 % (36.0-47.0); HEMOGLOBIN 14.4 g/dl (12.0-15.5); LYMPH # 0.8 10^3/uL (1.5-5.0); LYMPH % 3.8 % (24.0-44.0); MEAN CORPUSCULAR HEMOGLOBIN 35.3 pg (27.0-33.0); MEAN CORPUSCULAR HGB CONC 31.7 g/dl (32.0-36.5); MEAN CORPUSCULAR VOLUME 111.3 fl (80.0-96.0); MONO # 0.3 10^3/uL (0.0-0.8); MONO % 1.3 % (2.0-8.0); NEUTROPHILS # 19.3 10^3/uL (1.5-8.5); NEUTROPHILS % 92.6 % (36.0-66.0); PLATELET COUNT, AUTOMATED 177 10^3/uL (150-450); RED BLOOD COUNT 4.08 10^6/uL (4.00-5.40); WHITE BLOOD COUNT 20.8 10^3/uL (4.0-10.0)
[2024-06-25 22:46] LABS: INR 0.96; PARTIAL THROMBOPLASTIN TIME 27.2 SECONDS (24.8-34.2); PROTHROMBIN TIME 13.1 SECONDS (12.5-14.5)
[2024-06-25 22:50] LABS: LIPASE 24 U/L (12-53)
[2024-06-25 22:52] LABS: CPK CREATINE PHOSPHOKINASE 31 U/L (34-145)
[2024-06-25 23:08] LABS: PROCALCITONIN 10.18 ng/ml
[2024-06-25 23:23] LABS: ALKALINE PHOSPHATASE 87 U/L (35-104); ALT/SGPT 24 U/L (7.0-40); AST/SGOT 22 U/L (<34); BILIRUBIN,DIRECT 0.2 MG/DL (<0.4); BILIRUBIN,TOTAL 0.6 MG/DL (0.3-1.2); BLOOD UREA NITROGEN 19 MG/DL (9-23); CALCIUM LEVEL 8.2 MG/DL (8.3-10.6); CARBON DIOXIDE LEVEL 22 MMOL/L (20-31); CHLORIDE LEVEL 100 MMOL/L (98-107); CK-MB VALUE MASS 1.1 NG/ML (<3.6); CREATININE FOR GFR 0.74 MG/DL (0.55-1.30); GLOMERULAR FILTRATION RATE > 60.0 (>32); GLUCOSE, FASTING 143 MG/DL (74-106); MB/CK RELATIVE INDEX 3.54 (< OR =4); POTASSIUM SERUM 4.2 MMOL/L (3.5-5.1); SODIUM LEVEL 141 MMOL/L (136-145); TOTAL PROTEIN 6.5 G/DL (5.7-8.2)
[2024-06-25] MEDS ORDERED: ISOVUE-370 76% 100ML VIAL As Ordered ONE (23:35)
[2024-06-26] VITALS (18 sets, daily range): BP systolic 95–130; BP diastolic 54–66; TEMP 97.1–98.3; O2SAT 94–98
[2024-06-26] MEDS: cefTRIAXone SOD 2 GM in DEXTROSE 5% (D5W) ADV/MINI-BAG 50 ML IV ONE (00:03)
[2024-06-26] MEDS: NS 0.9% IV ONE (00:05)
[2024-06-26] MEDS: [UNRECOGNIZED DRUG - OTHER] IV ONE (00:05)
[2024-06-26] MEDS: KETOROLAC 30 MG/ML 1ML VIAL IV ONE (01:28)
[2024-06-26] MEDS: OSELTAMIVIR PHOSPHATE 75 MG CAP PO ONE (01:28)
[2024-06-26] MEDS: NS (Normal Saline) 0.9% 1,000 ML IV SCH (02:52)
[2024-06-26] MEDS: IPRATROPIUM 0.5MG/ALBUTEROL 2.5MG INH SOL UD 3ML (DUONEB) NEB SCH (02:52)
[2024-06-26 03:12] LABS: CK-MB VALUE MASS < 1.0 NG/ML (<3.6)
[2024-06-26 03:30] LABS: CPK CREATINE PHOSPHOKINASE 41 U/L (34-145); MB/CK RELATIVE INDEX 2.43 (< OR =4)
[2024-06-26] MEDS ORDERED: GLUCOSE 4 GM CHEW PO PRN ×2 (04:05→12:00)
[2024-06-26] MEDS ORDERED: GLUCAGON INJ 1MG VIAL SC PRN ×2 (04:05→12:00)
[2024-06-26] MEDS ORDERED: DEXTROSE 50% 50ML SYRINGE IV PRN ×2 (04:05→12:00)
[2024-06-26] MEDS: AZITHROMYCIN INJ 500 MG, VIAL MATE ADAPTER 1 EACH in NS 250 ML IV SCH (04:16)
[2024-06-26] MEDS: ACETAMINOPHEN *IV* 500 MG in IV 1 EA IV PRN (05:23)
[2024-06-26] MEDS: HEPARIN SOD (PORCINE) 5000UNITS/ML 1ML VIAL/SYRINGE SC SCH (05:26)
[2024-06-26] MEDS: INSULIN LISPRO (NovoLOG) PER UNIT SC SCH ×3 (05:30→20:17)
[2024-06-26] MEDS: IPRATROPIUM 0.5MG/ALBUTEROL 2.5MG INH SOL UD 3ML (DUONEB) NEB PRN (05:45)
[2024-06-26] MEDS ORDERED: MED REC IN PROGRESS XX SCH (06:30)
[2024-06-26 06:54] LABS: VENOUS BASE EXCESS -4.2 (-2.0-2.0); VENOUS HCO3 20.9 MMOL/L (23.0-27.0); VENOUS O2 SATURATION 89.5 % (60.0-80.0); VENOUS PARTIAL PRESSURE CO2 38.4 mmHg (38.0-50.0); VENOUS PARTIAL PRESSURE O2 60.8 mmHg (30.0-50.0); VENOUS PH 7.354 UNITS (7.330-7.430); VENOUS STANDARD HCO3 20.9 MMOL/L; VENOUS TOTAL CO2 22.1 MMOL/L (24.0-28.0)
[2024-06-26 07:01] LABS: HEMATOCRIT 38.8 % (36.0-47.0); HEMOGLOBIN 12.8 g/dl (12.0-15.5); PLATELET COUNT, AUTOMATED 101 10^3/uL (150-450); RED BLOOD COUNT 3.56 10^6/uL (4.00-5.40); WHITE BLOOD COUNT 16.7 10^3/uL (4.0-10.0)
[2024-06-26] MEDS ORDERED: CEFEPIME HCL 2 GM in DEXTROSE 5% (D5W) ADV/MINI-BAG 50 ML IV SCH (07:10)
[2024-06-26 07:26] LABS: LYMPHOCYTES 3 % (16-44); MONOCYTES 7 % (0-5); NEUTROPHILS 77 % (28-66)
[2024-06-26 07:27] LABS: ANISOCYTOSIS 2+; PLATELET ESTIMATE DECREASED (NORMAL); POIKILOCYTOSIS 1+; POLYCHROMASIA 1+
[2024-06-26 07:35] LABS: ALBUMIN 2.5 G/DL (3.2-5.2); ALKALINE PHOSPHATASE 71 U/L (35-104); ALT/SGPT 21 U/L (7.0-40); AST/SGOT 23 U/L (<34); BILIRUBIN,TOTAL 0.4 MG/DL (0.3-1.2); BLOOD UREA NITROGEN 14 MG/DL (9-23); CALCIUM LEVEL 7.2 MG/DL (8.3-10.6); CARBON DIOXIDE LEVEL 22 MMOL/L (20-31); CHLORIDE LEVEL 109 MMOL/L (98-107); CREATININE FOR GFR 0.71 MG/DL (0.55-1.30); GLOMERULAR FILTRATION RATE > 60.0 (>32); GLUCOSE, FASTING 97 MG/DL (74-106); POTASSIUM SERUM 2.9 MMOL/L (3.5-5.1); SODIUM LEVEL 145 MMOL/L (136-145); TOTAL PROTEIN 5.5 G/DL (5.7-8.2)
[2024-06-26] MEDS: CEFEPIME HCL 2 GM in DEXTROSE 5% (D5W) ADV/MINI-BAG 50 ML IV SCH (08:20)
[2024-06-26] MEDS: PANTOPRAZOLE 40MG VIAL IV SCH (08:21)
[2024-06-26 08:35] LABS: ABG HCO3 20.2 MMOL/L (22.0-26.0); ABG O2 SATURATION 95.6 % (95.0-99.0); ABG PARTIAL PRESSURE CO2 30.6 mmHg (35.0-45.0); ABG PARTIAL PRESSURE O2 79.7 mmHg (75.0-100.0); ABG STANDARD HCO3 21.9 MMOL/L. (22.0-26.0); ABG TOTAL CO2 21.1 MMOL/L (23.0-31.0); ABG pH (ARTERIAL) 7.437 UNITS (7.350-7.450)
[2024-06-26] MEDS: NS (Normal Saline) 0.9% 1,000 ML IV ONE (09:13)
[2024-06-26] MEDS: HYDROCORTISONE 100MG/2ML VIAL IV SCH (09:56)
[2024-06-26] MEDS: OSELTAMIVIR PHOSPHATE 30MG CAPSULE PO SCH (09:58)
[2024-06-26] MEDS: VANCOMYCIN HCL 1,250 MG, VIAL MATE ADAPTER 1 EACH in NS 250 ML IV ONE (11:10)
[2024-06-26 13:27] LABS: PROCALCITONIN 16.98 ng/ml
[2024-06-26 13:36] LABS: C REACTIVE PROTEIN QUANTITATIV 24.73 MG/DL (<1.0)
[2024-06-26] MEDS: KCL 10MEQ/100ML SWI (KRUN) 10 MEQ in IV 1 EA IV SCH (14:11)
[2024-06-26] MEDS: POTASSIUM CHLORIDE 10% LIQ 20MEQ/15ML UDC PO ONE (14:11)
[2024-06-26] MEDS ORDERED: FOLI1TAB11 PO (21:46)
[2024-06-26] MEDS ORDERED: HOME MED LIST COMPLETE! XX SCH (21:50)
[2024-06-26] MEDS: VANCOMYCIN HCL 750 MG, VIAL MATE ADAPTER 1 EACH in NS 250 ML IV SCH (22:25)
[2024-06-27] VITALS (22 sets, daily range): BP systolic 98–144; BP diastolic 58–82; TEMP 97.1–98.7; O2SAT 94–99
[2024-06-27] MEDS ORDERED: cefTRIAXone SOD 1 GM in DEXTROSE 5% (D5W) ADV/MINI-BAG 50 ML IV SCH
[2024-06-27 05:29] LABS: BASO % 0.1 % (0.0-1.0); HEMATOCRIT 36.5 % (36.0-47.0); HEMOGLOBIN 11.7 g/dl (12.0-15.5); LYMPH # 0.2 10^3/uL (1.5-5.0); LYMPH % 1.3 % (24.0-44.0); MEAN CORPUSCULAR HEMOGLOBIN 34.6 pg (27.0-33.0); MEAN CORPUSCULAR HGB CONC 32.1 g/dl (32.0-36.5); MONO # 0.3 10^3/uL (0.0-0.8); MONO % 2.1 % (2.0-8.0); NEUTROPHILS # 12.5 10^3/uL (1.5-8.5); NEUTROPHILS % 88.7 % (36.0-66.0); PLATELET COUNT, AUTOMATED 100 10^3/uL (150-450); RED BLOOD COUNT 3.38 10^6/uL (4.00-5.40); WHITE BLOOD COUNT 14.1 10^3/uL (4.0-10.0)
[2024-06-27 06:25] LABS: ALBUMIN 2.2 G/DL (3.2-5.2); ALKALINE PHOSPHATASE 69 U/L (35-104); ALT/SGPT 18 U/L (7.0-40); AST/SGOT 20 U/L (<34); BILIRUBIN,TOTAL 0.3 MG/DL (0.3-1.2); BLOOD UREA NITROGEN 16 MG/DL (9-23); C REACTIVE PROTEIN QUANTITATIV 27.61 MG/DL (<1.0); CALCIUM LEVEL 7.2 MG/DL (8.3-10.6); CARBON DIOXIDE LEVEL 20 MMOL/L (20-31); CHLORIDE LEVEL 112 MMOL/L (98-107); CREATININE FOR GFR 0.55 MG/DL (0.55-1.30); GLOMERULAR FILTRATION RATE > 60.0 (>32); GLUCOSE, FASTING 153 MG/DL (74-106); POTASSIUM SERUM 3.9 MMOL/L (3.5-5.1); SODIUM LEVEL 143 MMOL/L (136-145); TOTAL PROTEIN 5.3 G/DL (5.7-8.2)
[2024-06-27 07:22] LABS: VANCOMYCIN RANDOM 14.6 UG/ML
[2024-06-27] MEDS: VANCOMYCIN HCL 1,000 MG, VIAL MATE ADAPTER 1 EACH in NS 250 ML IV SCH (10:05)
[2024-06-27] MEDS: FIDAXOMICIN 200 MG TAB (DIFICID) PO SCH (12:39)
[2024-06-27] MEDS: LACTOBACILLUS ACIDOPHILUS CAP (BACID) PO SCH (15:08)
[2024-06-27] MEDS: HYDROCORTISONE 100MG/2ML VIAL IV SCH (19:08)
[2024-06-27] MEDS: guaiFENesin 200 MG TAB PO PRN (22:13)
[2024-06-28] VITALS (19 sets, daily range): BP systolic 114–146; BP diastolic 58–78; TEMP 97.9–98.7; O2SAT 87–98
[2024-06-28 05:31] LABS: BASO % 0.2 % (0.0-1.0); HEMATOCRIT 35.4 % (36.0-47.0); HEMOGLOBIN 11.2 g/dl (12.0-15.5); LYMPH # 0.4 10^3/uL (1.5-5.0); LYMPH % 2.4 % (24.0-44.0); MEAN CORPUSCULAR HEMOGLOBIN 34.8 pg (27.0-33.0); MEAN CORPUSCULAR HGB CONC 31.6 g/dl (32.0-36.5); MEAN CORPUSCULAR VOLUME 109.9 fl (80.0-96.0); MONO # 0.6 10^3/uL (0.0-0.8); MONO % 3.5 % (2.0-8.0); NEUTROPHILS # 14.9 10^3/uL (1.5-8.5); NEUTROPHILS % 93.4 % (36.0-66.0); PLATELET COUNT, AUTOMATED 102 10^3/uL (150-450); RED BLOOD COUNT 3.22 10^6/uL (4.00-5.40)
[2024-06-28 05:46] LABS: ALBUMIN 2.3 G/DL (3.2-5.2); ALKALINE PHOSPHATASE 70 U/L (35-104); ALT/SGPT 19 U/L (7.0-40); AST/SGOT 20 U/L (<34); BILIRUBIN,TOTAL 0.4 MG/DL (0.3-1.2); BLOOD UREA NITROGEN 14 MG/DL (9-23); C REACTIVE PROTEIN QUANTITATIV 12.73 MG/DL (<1.0); CALCIUM LEVEL 7.8 MG/DL (8.3-10.6); CARBON DIOXIDE LEVEL 22 MMOL/L (20-31); CHLORIDE LEVEL 111 MMOL/L (98-107); CREATININE FOR GFR 0.55 MG/DL (0.55-1.30); GLOMERULAR FILTRATION RATE > 60.0 (>32); GLUCOSE, FASTING 169 MG/DL (74-106); MAGNESIUM LEVEL 2.1 MG/DL (1.8-2.4); POTASSIUM SERUM 3.7 MMOL/L (3.5-5.1); SODIUM LEVEL 143 MMOL/L (136-145); TOTAL PROTEIN 5.4 G/DL (5.7-8.2)
[2024-06-28] MEDS: HYDROCORTISONE 100MG/2ML VIAL IV SCH (22:15)
[2024-06-29] VITALS (16 sets, daily range): BP systolic 110–164; BP diastolic 55–100; TEMP 97.2–100.6; O2SAT 92–99
[2024-06-29] MEDS: METOPROLOL 5 MG/5 ML VIAL IV SCH (00:48)
[2024-06-29] MEDS: METOPROLOL TART 25 MG TABLET PO SCH (01:11)
[2024-06-29 05:40] LABS: BASO % 0.1 % (0.0-1.0); HEMATOCRIT 34.7 % (36.0-47.0); HEMOGLOBIN 11.1 g/dl (12.0-15.5); LYMPH # 0.4 10^3/uL (1.5-5.0); LYMPH % 2.5 % (24.0-44.0); MEAN CORPUSCULAR VOLUME 106.4 fl (80.0-96.0); MONO # 0.8 10^3/uL (0.0-0.8); MONO % 5.6 % (2.0-8.0); NEUTROPHILS % 90.7 % (36.0-66.0); PLATELET COUNT, AUTOMATED 119 10^3/uL (150-450); RED BLOOD COUNT 3.26 10^6/uL (4.00-5.40); WHITE BLOOD COUNT 14.3 10^3/uL (4.0-10.0)
[2024-06-29 06:02] LABS: C REACTIVE PROTEIN QUANTITATIV 9.19 MG/DL (<1.0)
[2024-06-29 06:03] LABS: BLOOD UREA NITROGEN 14 MG/DL (9-23); CALCIUM LEVEL 7.7 MG/DL (8.3-10.6); CARBON DIOXIDE LEVEL 22 MMOL/L (20-31); CHLORIDE LEVEL 113 MMOL/L (98-107); GLOMERULAR FILTRATION RATE > 60.0 (>32); GLUCOSE, FASTING 181 MG/DL (74-106); POTASSIUM SERUM 3.2 MMOL/L (3.5-5.1); SODIUM LEVEL 145 MMOL/L (136-145)
[2024-06-29 06:43] LABS: MAGNESIUM LEVEL 1.8 MG/DL (1.8-2.4)
[2024-06-29] MEDS ORDERED: POTASSIUM CHLORIDE 10MEQ SR TABLET PO ONE (06:50)
[2024-06-29] MEDS: MAG SULF 1GM/100ML (MAG RUN) 1 GM in IV 1 EA IV ONE (08:15)
[2024-06-29] MEDS: POTASSIUM CHLORIDE 10% LIQ 20MEQ/15ML UDC PO ONE (10:24)
[2024-06-29] MEDS: VANCOMYCIN HCL 750 MG, VIAL MATE ADAPTER 1 EACH in NS 250 ML IV SCH (10:25)
[2024-06-29] MEDS: FUROSEMIDE 20 MG TAB PO SCH (12:59)
[2024-06-29] MEDS ORDERED: VARIBAR NECTAR 40% w/v 240ML SUSP BTL As Ordered ONE (14:04)
[2024-06-29] MEDS ORDERED: VARIBAR PUDDING 40% w/v 230ML TUBE As Ordered ONE (14:04)
[2024-06-29] MEDS ORDERED: BARIUM SULFATE 700 MG TABLET (E-Z-DISK) As Ordered ONE (14:05)
[2024-06-29] MEDS ORDERED: E-Z-PAQUE 96% w/w SUSP 176GM BTL As Ordered ONE (14:07)
[2024-06-29 15:37] LABS: URINE STREP PNEUMONIAE ANTIGEN DETECTED (NOT DETECT)
[2024-06-29] MEDS: SODIUM CHLORIDE 0.9% INJ 10 ML SYR IV SCH (17:28)
[2024-06-29] MEDS: APIXABAN 5 MG TAB (ELIQUIS) PO SCH (22:35)
[2024-06-30] VITALS (24 sets, daily range): BP systolic 121–158; BP diastolic 57–79; PULSE 74; TEMP 97.6–102.5; O2SAT 92–98
[2024-06-30 07:51] LABS: BASO % 0.2 % (0.0-1.0); EOS % 0.1 % (0.0-3.0); HEMOGLOBIN 10.9 g/dl (12.0-15.5); LYMPH # 0.6 10^3/uL (1.5-5.0); LYMPH % 4.9 % (24.0-44.0); MEAN CORPUSCULAR HEMOGLOBIN 34.9 pg (27.0-33.0); MEAN CORPUSCULAR VOLUME 105.8 fl (80.0-96.0); MONO # 0.8 10^3/uL (0.0-0.8); MONO % 6.7 % (2.0-8.0); NEUTROPHILS # 10.4 10^3/uL (1.5-8.5); NEUTROPHILS % 85.7 % (36.0-66.0); PLATELET COUNT, AUTOMATED 113 10^3/uL (150-450); RED BLOOD COUNT 3.12 10^6/uL (4.00-5.40); WHITE BLOOD COUNT 12.2 10^3/uL (4.0-10.0)
[2024-06-30 08:09] LABS: BLOOD UREA NITROGEN 9 MG/DL (9-23); CALCIUM LEVEL 7.3 MG/DL (8.3-10.6); CARBON DIOXIDE LEVEL 26 MMOL/L (20-31); CHLORIDE LEVEL 107 MMOL/L (98-107); CREATININE FOR GFR 0.55 MG/DL (0.55-1.30); GLOMERULAR FILTRATION RATE > 60.0 (>32); GLUCOSE, FASTING 114 MG/DL (74-106); POTASSIUM SERUM 2.6 MMOL/L (3.5-5.1); SODIUM LEVEL 146 MMOL/L (136-145)
[2024-06-30] MEDS: POTASSIUM CHLORIDE 10MEQ SR TABLET PO ONE (09:12)
[2024-06-30] MEDS: predniSONE 5 MG TAB PO SCH (09:13)
[2024-06-30] MEDS: KCL 10MEQ/100ML SWI (KRUN) 10 MEQ in IV 1 EA IV SCH (09:14)
[2024-06-30 10:36] LABS: C REACTIVE PROTEIN QUANTITATIV 13.39 MG/DL (<1.0)
[2024-06-30 10:44] LABS: PROCALCITONIN 1.36 ng/ml
[2024-06-30 13:54] LABS: ABG BASE EXCESS -0.9 (-2.0-2.0); ABG HCO3 23.7 MMOL/L (22.0-26.0); ABG O2 SATURATION 96.7 % (95.0-99.0); ABG PARTIAL PRESSURE CO2 38.8 mmHg (35.0-45.0); ABG PARTIAL PRESSURE O2 93.8 mmHg (75.0-100.0); ABG STANDARD HCO3 23.7 MMOL/L. (22.0-26.0); ABG TOTAL CO2 24.8 MMOL/L (23.0-31.0); ABG pH (ARTERIAL) 7.403 UNITS (7.350-7.450)
[2024-07-01] VITALS (20 sets, daily range): BP systolic 136–153; BP diastolic 63–72; TEMP 98–100.8; O2SAT 89–100
[2024-07-01 07:35] LABS: BASO % 0.2 % (0.0-1.0); EOS % 0.2 % (0.0-3.0); HEMATOCRIT 34.2 % (36.0-47.0); HEMOGLOBIN 11.1 g/dl (12.0-15.5); LYMPH # 0.7 10^3/uL (1.5-5.0); LYMPH % 6.9 % (24.0-44.0); MEAN CORPUSCULAR HEMOGLOBIN 34.4 pg (27.0-33.0); MEAN CORPUSCULAR HGB CONC 32.5 g/dl (32.0-36.5); MEAN CORPUSCULAR VOLUME 105.9 fl (80.0-96.0); MONO # 0.9 10^3/uL (0.0-0.8); MONO % 8.5 % (2.0-8.0); NEUTROPHILS # 8.4 10^3/uL (1.5-8.5); NEUTROPHILS % 82.2 % (36.0-66.0); PLATELET COUNT, AUTOMATED 140 10^3/uL (150-450); RED BLOOD COUNT 3.23 10^6/uL (4.00-5.40); WHITE BLOOD COUNT 10.2 10^3/uL (4.0-10.0)
[2024-07-01 08:01] LABS: BLOOD UREA NITROGEN 7 MG/DL (9-23); CALCIUM LEVEL 7.7 MG/DL (8.3-10.6); CARBON DIOXIDE LEVEL 27 MMOL/L (20-31); CHLORIDE LEVEL 103 MMOL/L (98-107); CREATININE FOR GFR 0.44 MG/DL (0.55-1.30); GLOMERULAR FILTRATION RATE > 60.0 (>32); GLUCOSE, FASTING 99 MG/DL (74-106); POTASSIUM SERUM 3.4 MMOL/L (3.5-5.1); SODIUM LEVEL 141 MMOL/L (136-145)
[2024-07-01] MEDS: POTASSIUM CHLORIDE 10MEQ SR TABLET PO ONE (10:27)
[2024-07-01] MEDS ORDERED: VANCOMYCIN HCL 500 MG in DEXTROSE 5% (D5W) MINI-BAG PLU 100 ML IV SCH (12:00)
[2024-07-01] MEDS: VANCOMYCIN HCL 1,250 MG, VIAL MATE ADAPTER 1 EACH in NS 250 ML IV SCH (13:30)
[2024-07-01 15:50] LABS: KETONE, URINE AUTO RFX 1+ mg/dL (NEGATIVE); LEUKOCYTE ESTERASE UR AUTO RFX NEGATIVE (NEGATIVE); MUCUS, URINE RFX SMALL (NEGATIVE); NITRITE, URINE AUTO RFX NEGATIVE (NEGATIVE); RBC, URINE AUTO RFX 3 /HPF (0-3); SQUAM EPITHELIAL CELL UR AURFX 6 /HPF (0-6); WBC, URINE AUTO RFX 3 /HPF (0-3)
[2024-07-02] VITALS (13 sets, daily range): BP systolic 120–132; BP diastolic 57–67; TEMP 97–97.8; O2SAT 92–98
[2024-07-02 08:30] LABS: BASO % 0.1 % (0.0-1.0); EOS % 0.2 % (0.0-3.0); HEMATOCRIT 38.1 % (36.0-47.0); HEMOGLOBIN 12.4 g/dl (12.0-15.5); LYMPH # 0.8 10^3/uL (1.5-5.0); LYMPH % 5.4 % (24.0-44.0); MEAN CORPUSCULAR HGB CONC 32.5 g/dl (32.0-36.5); MEAN CORPUSCULAR VOLUME 107.6 fl (80.0-96.0); MONO % 7.4 % (2.0-8.0); NEUTROPHILS # 11.9 10^3/uL (1.5-8.5); NEUTROPHILS % 85.6 % (36.0-66.0); PLATELET COUNT, AUTOMATED 177 10^3/uL (150-450); RED BLOOD COUNT 3.54 10^6/uL (4.00-5.40); WHITE BLOOD COUNT 13.9 10^3/uL (4.0-10.0)
[2024-07-02 09:19] LABS: LDH LACTATE DEHYDROGENASE 497 U/L (120-246)
[2024-07-02 09:29] LABS: BLOOD UREA NITROGEN 8 MG/DL (9-23); CALCIUM LEVEL 8.1 MG/DL (8.3-10.6); CARBON DIOXIDE LEVEL 33 MMOL/L (20-31); CHLORIDE LEVEL 102 MMOL/L (98-107); CREATININE FOR GFR 0.67 MG/DL (0.55-1.30); GLOMERULAR FILTRATION RATE > 60.0 (>32); GLUCOSE, FASTING 170 MG/DL (74-106); POTASSIUM SERUM 4.2 MMOL/L (3.5-5.1); SODIUM LEVEL 142 MMOL/L (136-145)
[2024-07-02] MEDS: VANCOMYCIN HCL 1,000 MG, VIAL MATE ADAPTER 1 EACH in NS 250 ML IV SCH (12:12)
[2024-07-03 03:51] VITALS: BP 143/62; TEMP 97.5; O2SAT 96
[2024-07-03 05:58] LABS: BASO % 0.2 % (0.0-1.0); EOS % 0.3 % (0.0-3.0); HEMATOCRIT 31.7 % (36.0-47.0); HEMOGLOBIN 10.2 g/dl (12.0-15.5); LYMPH # 0.9 10^3/uL (1.5-5.0); LYMPH % 6.7 % (24.0-44.0); MEAN CORPUSCULAR HEMOGLOBIN 34.3 pg (27.0-33.0); MEAN CORPUSCULAR HGB CONC 32.2 g/dl (32.0-36.5); MEAN CORPUSCULAR VOLUME 106.7 fl (80.0-96.0); MONO # 1.1 10^3/uL (0.0-0.8); MONO % 7.9 % (2.0-8.0); NEUTROPHILS # 11.2 10^3/uL (1.5-8.5); NEUTROPHILS % 83.3 % (36.0-66.0); PLATELET COUNT, AUTOMATED 196 10^3/uL (150-450); RED BLOOD COUNT 2.97 10^6/uL (4.00-5.40); WHITE BLOOD COUNT 13.5 10^3/uL (4.0-10.0)
[2024-07-03 06:13] LABS: BLOOD UREA NITROGEN 12 MG/DL (9-23); C REACTIVE PROTEIN QUANTITATIV 10.06 MG/DL (<1.0); CALCIUM LEVEL 7.7 MG/DL (8.3-10.6); CARBON DIOXIDE LEVEL 31 MMOL/L (20-31); CHLORIDE LEVEL 101 MMOL/L (98-107); CREATININE FOR GFR 0.66 MG/DL (0.55-1.30); GLOMERULAR FILTRATION RATE > 60.0 (>32); GLUCOSE, FASTING 111 MG/DL (74-106); POTASSIUM SERUM 4.1 MMOL/L (3.5-5.1); SODIUM LEVEL 140 MMOL/L (136-145)
[2024-07-03 08:19] VITALS: BP 130/60; TEMP 97.8; O2SAT 93
[2024-07-03] MEDS: SODIUM CHLORIDE 0.9% INJ 10 ML SYR IV PRN (14:11)
[2024-07-03 16:50] VITALS: BP 125/69; TEMP 98; O2SAT 94
[2024-07-03] MEDS: POTASSIUM CHLORIDE 10MEQ SR TABLET PO ONE (17:24)
[2024-07-03 19:16] VITALS: BP 154/67; TEMP 98.2; O2SAT 99
[2024-07-03 23:24] VITALS: BP 136/63; TEMP 98; O2SAT 96
[2024-07-04] VITALS (24 sets, daily range): BP systolic 120–131; BP diastolic 52–75; TEMP 97.4–98.3; O2SAT 81–100
[2024-07-04 06:33] LABS: BASO % 0.3 % (0.0-1.0); EOS % 0.2 % (0.0-3.0); HEMATOCRIT 37.5 % (36.0-47.0); HEMOGLOBIN 11.9 g/dl (12.0-15.5); LYMPH % 7.6 % (24.0-44.0); MEAN CORPUSCULAR HGB CONC 31.7 g/dl (32.0-36.5); MEAN CORPUSCULAR VOLUME 107.1 fl (80.0-96.0); MONO # 1.1 10^3/uL (0.0-0.8); MONO % 8.4 % (2.0-8.0); NEUTROPHILS # 10.7 10^3/uL (1.5-8.5); NEUTROPHILS % 81.8 % (36.0-66.0); PLATELET COUNT, AUTOMATED 204 10^3/uL (150-450)
[2024-07-04 07:06] LABS: BLOOD UREA NITROGEN 20 MG/DL (9-23); CALCIUM LEVEL 8.7 MG/DL (8.3-10.6); CARBON DIOXIDE LEVEL 31 MMOL/L (20-31); CHLORIDE LEVEL 100 MMOL/L (98-107); CREATININE FOR GFR 0.66 MG/DL (0.55-1.30); GLOMERULAR FILTRATION RATE > 60.0 (>32); GLUCOSE, FASTING 109 MG/DL (74-106); POTASSIUM SERUM 4.7 MMOL/L (3.5-5.1); SODIUM LEVEL 141 MMOL/L (136-145)
[2024-07-05] VITALS (19 sets, daily range): BP systolic 108–143; BP diastolic 51–71; TEMP 97.3–98.7; O2SAT 91–100
[2024-07-05 06:06] LABS: BASO % 0.3 % (0.0-1.0); EOS % 0.1 % (0.0-3.0); HEMATOCRIT 33.2 % (36.0-47.0); HEMOGLOBIN 10.4 g/dl (12.0-15.5); LYMPH # 1.1 10^3/uL (1.5-5.0); LYMPH % 7.5 % (24.0-44.0); MEAN CORPUSCULAR HEMOGLOBIN 33.2 pg (27.0-33.0); MEAN CORPUSCULAR HGB CONC 31.3 g/dl (32.0-36.5); MEAN CORPUSCULAR VOLUME 106.1 fl (80.0-96.0); MONO # 1.5 10^3/uL (0.0-0.8); MONO % 9.7 % (2.0-8.0); NEUTROPHILS # 12.1 10^3/uL (1.5-8.5); NEUTROPHILS % 80.5 % (36.0-66.0); PLATELET COUNT, AUTOMATED 195 10^3/uL (150-450); RED BLOOD COUNT 3.13 10^6/uL (4.00-5.40)
[2024-07-05 06:29] LABS: VANCOMYCIN RANDOM 15.4 UG/ML
[2024-07-05 06:30] LABS: C REACTIVE PROTEIN QUANTITATIV 8.16 MG/DL (<1.0)
[2024-07-05 06:34] LABS: BLOOD UREA NITROGEN 26 MG/DL (9-23); CALCIUM LEVEL 8.6 MG/DL (8.3-10.6); CARBON DIOXIDE LEVEL 30 MMOL/L (20-31); CHLORIDE LEVEL 101 MMOL/L (98-107); CREATININE FOR GFR 0.64 MG/DL (0.55-1.30); GLOMERULAR FILTRATION RATE > 60.0 (>32); GLUCOSE, FASTING 100 MG/DL (74-106); MAGNESIUM LEVEL 1.8 MG/DL (1.8-2.4); POTASSIUM SERUM 5.7 MMOL/L (3.5-5.1); SODIUM LEVEL 141 MMOL/L (136-145)
[2024-07-05] MEDS: VANCOMYCIN HCL 1,250 MG, VIAL MATE ADAPTER 1 EACH in NS 250 ML IV SCH (10:23)
[2024-07-05] MEDS: FUROSEMIDE 40MG/4ML VIAL IV ONE (11:28)
[2024-07-06 04:24] VITALS: BP 123/59; TEMP 97.2; O2SAT 93
[2024-07-06 06:22] LABS: BASO % 0.1 % (0.0-1.0); EOS % 0.1 % (0.0-3.0); HEMATOCRIT 34.8 % (36.0-47.0); HEMOGLOBIN 11.2 g/dl (12.0-15.5); LYMPH # 1.2 10^3/uL (1.5-5.0); LYMPH % 8.5 % (24.0-44.0); MEAN CORPUSCULAR HEMOGLOBIN 34.5 pg (27.0-33.0); MEAN CORPUSCULAR HGB CONC 32.2 g/dl (32.0-36.5); MEAN CORPUSCULAR VOLUME 107.1 fl (80.0-96.0); MONO # 1.5 10^3/uL (0.0-0.8); MONO % 11.1 % (2.0-8.0); NEUTROPHILS # 10.5 10^3/uL (1.5-8.5); NEUTROPHILS % 77.9 % (36.0-66.0); PLATELET COUNT, AUTOMATED 257 10^3/uL (150-450); RED BLOOD COUNT 3.25 10^6/uL (4.00-5.40); WHITE BLOOD COUNT 13.5 10^3/uL (4.0-10.0)
[2024-07-06 06:38] LABS: C REACTIVE PROTEIN QUANTITATIV 9.31 MG/DL (<1.0)
[2024-07-06 06:39] LABS: BLOOD UREA NITROGEN 34 MG/DL (9-23); CALCIUM LEVEL 9.2 MG/DL (8.3-10.6); CARBON DIOXIDE LEVEL 36 MMOL/L (20-31); CHLORIDE LEVEL 95 MMOL/L (98-107); GLOMERULAR FILTRATION RATE > 60.0 (>32); GLUCOSE, FASTING 144 MG/DL (74-106); MAGNESIUM LEVEL 1.9 MG/DL (1.8-2.4); SODIUM LEVEL 140 MMOL/L (136-145)
[2024-07-06 08:14] VITALS: BP 109/53; TEMP 98.2; O2SAT 96
[2024-07-06 12:00] VITALS: BP 161/72; TEMP 98.4; O2SAT 95
[2024-07-06 17:43] VITALS: BP 109/54; TEMP 98.3; O2SAT 97
[2024-07-06 19:19] VITALS: BP 111/54; TEMP 98.5; O2SAT 97
[2024-07-07 03:30] VITALS: BP 114/57; TEMP 97.2; O2SAT 94
[2024-07-07 06:18] LABS: BASO % 0.2 % (0.0-1.0); EOS % 0.2 % (0.0-3.0); HEMATOCRIT 35.7 % (36.0-47.0); HEMOGLOBIN 11.2 g/dl (12.0-15.5); LYMPH # 0.9 10^3/uL (1.5-5.0); LYMPH % 7.7 % (24.0-44.0); MEAN CORPUSCULAR HEMOGLOBIN 33.4 pg (27.0-33.0); MEAN CORPUSCULAR HGB CONC 31.4 g/dl (32.0-36.5); MEAN CORPUSCULAR VOLUME 106.6 fl (80.0-96.0); MONO # 1.5 10^3/uL (0.0-0.8); NEUTROPHILS # 9.5 10^3/uL (1.5-8.5); PLATELET COUNT, AUTOMATED 260 10^3/uL (150-450); RED BLOOD COUNT 3.35 10^6/uL (4.00-5.40); WHITE BLOOD COUNT 12.1 10^3/uL (4.0-10.0)
[2024-07-07 06:45] LABS: C REACTIVE PROTEIN QUANTITATIV 6.71 MG/DL (<1.0)
[2024-07-07 06:46] LABS: BLOOD UREA NITROGEN 26 MG/DL (9-23); CALCIUM LEVEL 8.6 MG/DL (8.3-10.6); CARBON DIOXIDE LEVEL 34 MMOL/L (20-31); CHLORIDE LEVEL 97 MMOL/L (98-107); CREATININE FOR GFR 0.77 MG/DL (0.55-1.30); GLOMERULAR FILTRATION RATE > 60.0 (>32); GLUCOSE, FASTING 130 MG/DL (74-106); MAGNESIUM LEVEL 2.1 MG/DL (1.8-2.4); POTASSIUM SERUM 4.1 MMOL/L (3.5-5.1); SODIUM LEVEL 139 MMOL/L (136-145)
[2024-07-07 08:00] VITALS: BP 113/61; TEMP 97.9; O2SAT 92
[2024-07-07] MEDS: PANTOPRAZOLE 40MG TAB (PROTONIX) PO SCH (08:28)
[2024-07-07 11:30] VITALS: BP 121/52; TEMP 99.6; O2SAT 92
[2024-07-07 15:52] VITALS: BP 117/56; TEMP 97.8; O2SAT 95
[2024-07-07 19:14] VITALS: BP 119/59; TEMP 97.6; O2SAT 96
[2024-07-07] MEDS: ACETAMINOPHEN 325 MG TAB PO PRN (23:38)
[2024-07-08 03:26] VITALS: BP 130/62; TEMP 97.8; O2SAT 94
[2024-07-08 05:38] LABS: BASO % 0.1 % (0.0-1.0); EOS % 0.2 % (0.0-3.0); HEMATOCRIT 33.5 % (36.0-47.0); HEMOGLOBIN 10.7 g/dl (12.0-15.5); LYMPH # 0.9 10^3/uL (1.5-5.0); LYMPH % 7.1 % (24.0-44.0); MEAN CORPUSCULAR HEMOGLOBIN 34.4 pg (27.0-33.0); MEAN CORPUSCULAR HGB CONC 31.9 g/dl (32.0-36.5); MEAN CORPUSCULAR VOLUME 107.7 fl (80.0-96.0); MONO # 1.6 10^3/uL (0.0-0.8); MONO % 12.5 % (2.0-8.0); NEUTROPHILS # 9.8 10^3/uL (1.5-8.5); NEUTROPHILS % 77.9 % (36.0-66.0); PLATELET COUNT, AUTOMATED 243 10^3/uL (150-450); RED BLOOD COUNT 3.11 10^6/uL (4.00-5.40); WHITE BLOOD COUNT 12.5 10^3/uL (4.0-10.0)
[2024-07-08 06:13] LABS: BLOOD UREA NITROGEN 25 MG/DL (9-23); C REACTIVE PROTEIN QUANTITATIV 12.41 MG/DL (<1.0); CALCIUM LEVEL 8.5 MG/DL (8.3-10.6); CARBON DIOXIDE LEVEL 32 MMOL/L (20-31); CHLORIDE LEVEL 100 MMOL/L (98-107); CREATININE FOR GFR 0.89 MG/DL (0.55-1.30); GLOMERULAR FILTRATION RATE > 60.0 (>32); GLUCOSE, FASTING 158 MG/DL (74-106); MAGNESIUM LEVEL 2.2 MG/DL (1.8-2.4); POTASSIUM SERUM 4.1 MMOL/L (3.5-5.1); SODIUM LEVEL 141 MMOL/L (136-145)
[2024-07-08 07:29] VITALS: BP 143/65; TEMP 98.2; O2SAT 95
[2024-07-08] MEDS: VANCOMYCIN HCL 1,000 MG, VIAL MATE ADAPTER 1 EACH in NS 250 ML IV SCH (10:01)
[2024-07-08] MEDS: FUROSEMIDE 20 MG TAB PO ONE (10:01)
[2024-07-08 11:54] VITALS: BP 125/60; TEMP 98.2; O2SAT 96
[2024-07-08 16:30] VITALS: BP 114/69; TEMP 97.7; O2SAT 91
[2024-07-08 20:07] VITALS: BP 110/53; TEMP 98.1; O2SAT 93
[2024-07-09 00:02] VITALS: BP 119/59; TEMP 98.3; O2SAT 93
[2024-07-09 04:18] VITALS: BP 143/70; TEMP 97.7; O2SAT 98
[2024-07-09 07:09] LABS: BASO % 0.2 % (0.0-1.0); EOS % 0.1 % (0.0-3.0); HEMATOCRIT 35.1 % (36.0-47.0); HEMOGLOBIN 11.2 g/dl (12.0-15.5); LYMPH % 8.2 % (24.0-44.0); MEAN CORPUSCULAR HEMOGLOBIN 33.4 pg (27.0-33.0); MEAN CORPUSCULAR HGB CONC 31.9 g/dl (32.0-36.5); MEAN CORPUSCULAR VOLUME 104.8 fl (80.0-96.0); MONO # 1.3 10^3/uL (0.0-0.8); MONO % 10.4 % (2.0-8.0); NEUTROPHILS % 79.1 % (36.0-66.0); PLATELET COUNT, AUTOMATED 277 10^3/uL (150-450); RED BLOOD COUNT 3.35 10^6/uL (4.00-5.40); WHITE BLOOD COUNT 12.6 10^3/uL (4.0-10.0)
[2024-07-09 07:36] LABS: C REACTIVE PROTEIN QUANTITATIV 16.47 MG/DL (<1.0)
[2024-07-09 07:38] LABS: BLOOD UREA NITROGEN 30 MG/DL (9-23); CALCIUM LEVEL 8.6 MG/DL (8.3-10.6); CARBON DIOXIDE LEVEL 31 MMOL/L (20-31); CHLORIDE LEVEL 99 MMOL/L (98-107); CREATININE FOR GFR 0.81 MG/DL (0.55-1.30); GLOMERULAR FILTRATION RATE > 60.0 (>32); GLUCOSE, FASTING 178 MG/DL (74-106); MAGNESIUM LEVEL 2.1 MG/DL (1.8-2.4); SODIUM LEVEL 140 MMOL/L (136-145)
[2024-07-09 07:44] LABS: VANCOMYCIN RANDOM 18.8 UG/ML
[2024-07-09 07:54] VITALS: BP 137/62; TEMP 98.3; O2SAT 96
[2024-07-09 12:00] VITALS: BP 145/64; TEMP 98.2; O2SAT 93
[2024-07-09 16:00] VITALS: BP 127/60; TEMP 98.2; O2SAT 95
[2024-07-09 20:19] VITALS: BP 110/56; TEMP 98.1; O2SAT 96
[2024-07-10 00:16] VITALS: BP 122/54; TEMP 97.8; O2SAT 96
[2024-07-10 04:14] VITALS: BP 163/69; TEMP 98.2; O2SAT 95
[2024-07-10 07:34] VITALS: BP 156/64; TEMP 98; O2SAT 96
[2024-07-10 08:04] LABS: BASO % 0.3 % (0.0-1.0); EOS % 0.1 % (0.0-3.0); HEMATOCRIT 34.2 % (36.0-47.0); HEMOGLOBIN 10.9 g/dl (12.0-15.5); LYMPH # 0.8 10^3/uL (1.5-5.0); LYMPH % 7.8 % (24.0-44.0); MEAN CORPUSCULAR HEMOGLOBIN 33.9 pg (27.0-33.0); MEAN CORPUSCULAR HGB CONC 31.9 g/dl (32.0-36.5); MEAN CORPUSCULAR VOLUME 106.2 fl (80.0-96.0); MONO # 0.9 10^3/uL (0.0-0.8); MONO % 9.1 % (2.0-8.0); NEUTROPHILS # 8.4 10^3/uL (1.5-8.5); NEUTROPHILS % 80.7 % (36.0-66.0); PLATELET COUNT, AUTOMATED 218 10^3/uL (150-450); RED BLOOD COUNT 3.22 10^6/uL (4.00-5.40); WHITE BLOOD COUNT 10.4 10^3/uL (4.0-10.0)
[2024-07-10 08:25] LABS: BLOOD UREA NITROGEN 29 MG/DL (9-23); CALCIUM LEVEL 8.5 MG/DL (8.3-10.6); CARBON DIOXIDE LEVEL 30 MMOL/L (20-31); CHLORIDE LEVEL 102 MMOL/L (98-107); CREATININE FOR GFR 0.72 MG/DL (0.55-1.30); GLOMERULAR FILTRATION RATE > 60.0 (>32); GLUCOSE, FASTING 194 MG/DL (74-106); MAGNESIUM LEVEL 2.1 MG/DL (1.8-2.4); POTASSIUM SERUM 3.8 MMOL/L (3.5-5.1); SODIUM LEVEL 142 MMOL/L (136-145)
[2024-07-10] MEDS: LACTIC ACID 12% LOTION 225 GM BTL EXT SCH (10:08)
[2024-07-10 12:00] VITALS: BP 121/58; TEMP 98.2; O2SAT 92
[2024-07-10 16:30] VITALS: BP 119/59; TEMP 98.1; O2SAT 96
[2024-07-10] MEDS: METOPROLOL TART 25 MG TABLET PO SCH (18:31)
[2024-07-10 20:06] VITALS: BP 120/57; TEMP 98; O2SAT 96
[2024-07-11 04:51] VITALS: BP 128/56; TEMP 98.3; O2SAT 93
[2024-07-11 05:37] LABS: BASO % 0.3 % (0.0-1.0); EOS # 0.1 10^3/uL (0.0-0.5); EOS % 0.3 % (0.0-3.0); HEMATOCRIT 33.8 % (36.0-47.0); HEMOGLOBIN 10.6 g/dl (12.0-15.5); LYMPH # 1.1 10^3/uL (1.5-5.0); LYMPH % 7.7 % (24.0-44.0); MEAN CORPUSCULAR HEMOGLOBIN 33.1 pg (27.0-33.0); MEAN CORPUSCULAR HGB CONC 31.4 g/dl (32.0-36.5); MEAN CORPUSCULAR VOLUME 105.6 fl (80.0-96.0); MONO # 1.2 10^3/uL (0.0-0.8); MONO % 8.1 % (2.0-8.0); NEUTROPHILS # 11.8 10^3/uL (1.5-8.5); NEUTROPHILS % 81.4 % (36.0-66.0); PLATELET COUNT, AUTOMATED 284 10^3/uL (150-450); WHITE BLOOD COUNT 14.5 10^3/uL (4.0-10.0)
[2024-07-11 08:00] VITALS: BP 149/66; TEMP 99.2; O2SAT 96
[2024-07-11] MEDS ORDERED: ELIQ5TAB PO (09:44)
[2024-07-11 15:20] VITALS: BP 129/58; TEMP 98.1; O2SAT 98
[2024-07-11] MEDS: BACITRACIN OINTMENT 30GM TUBE TOP PRN (18:27)
[2024-07-11 20:43] VITALS: BP 171/73; TEMP 98.5; O2SAT 96
[2024-07-12 04:41] VITALS: BP 132/64; TEMP 97.4; O2SAT 100
[2024-07-12 07:37] VITALS: BP 148/66; TEMP 98.9; O2SAT 92
[2024-07-12 09:33] VITALS: BP 148/66
[2024-07-12] MEDS ORDERED: METO1TAB87 PO (10:44)
== END 2024-07-12 17:31 | disposition home health service (06) | DRG 871 ==
LOC: M ED 20:36 → M ED INP 06-26 02:19 → EEVIPCON 06-26 02:19 → M PCU 06-26 09:19
PROVIDERS: ADMIT Student in an Organized Health Care Education/Training Program; ATTEND Student in an Organized Health Care Education/Training Program
PROC: B246ZZZ Ultrasonography of Right and Left Heart (ICD-10-PCS; 2024-06-26)
PROC: 0JBQ3ZZ Excision of Right Foot Subcutaneous Tissue and Fascia, Percutaneous Approach (ICD-10-PCS; principal; 2024-06-27)
PROC: 02H633Z Insertion of Infusion Device into Right Atrium, Percutaneous Approach (ICD-10-PCS; 2024-06-29)
DX: A41.02 Sepsis due to Methicillin resistant Staphylococcus aureus (principal); G93.41 Metabolic encephalopathy; J15.212 Pneumonia due to Methicillin resistant Staphylococcus aureus; J10.08 Influenza due to other identified influenza virus with other specified pneumonia; L97.528 Non-pressure chronic ulcer of other part of left foot with other specified severity; I24.89 Other forms of acute ischemic heart disease; E27.40 Unspecified adrenocortical insufficiency; I50.32 Chronic diastolic (congestive) heart failure; J96.11 Chronic respiratory failure with hypoxia; L97.518 Non-pressure chronic ulcer of other part of right foot with other specified severity; K52.1 Toxic gastroenteritis and colitis; E87.20 Acidosis, unspecified; L03.031 Cellulitis of right toe; Z66 Do not resuscitate; R65.20 Severe sepsis without septic shock; F03.90 Unspecified dementia, unspecified severity, without behavioral disturbance, psychotic disturbance, mood disturbance, and anxiety; E11.621 Type 2 diabetes mellitus with foot ulcer; I11.0 Hypertensive heart disease with heart failure; M06.9 Rheumatoid arthritis, unspecified; I35.0 Nonrheumatic aortic (valve) stenosis; I48.91 Unspecified atrial fibrillation; E87.6 Hypokalemia; R13.12 Dysphagia, oropharyngeal phase; R10.11 Right upper quadrant pain; G47.33 Obstructive sleep apnea (adult) (pediatric); I71.43 Infrarenal abdominal aortic aneurysm, without rupture; I27.20 Pulmonary hypertension, unspecified; N88.8 Other specified noninflammatory disorders of cervix uteri; I25.10 Atherosclerotic heart disease of native coronary artery without angina pectoris; T36.1X5A Adverse effect of cephalosporins and other beta-lactam antibiotics, initial encounter; E11.51 Type 2 diabetes mellitus with diabetic peripheral angiopathy without gangrene; Z99.81 Dependence on supplemental oxygen; Z86.73 Personal history of transient ischemic attack (TIA), and cerebral infarction without residual deficits; Z90.49 Acquired absence of other specified parts of digestive tract; Z79.84 Long term (current) use of oral hypoglycemic drugs; Z79.52 Long term (current) use of systemic steroids; Z79.899 Other long term (current) drug therapy; Z88.0 Allergy status to penicillin; Z88.5 Allergy status to narcotic agent; Z91.040 Latex allergy status